=== PATIENT | male | born 1940 | race Caucasian/White ===

== ENCOUNTER → 2019-08-26 10:37 | Outpatient (BNVA) | payer MEDICARE, SELFPAY | PROVIDERS: Family Provider Internal Medicine; PCP Internal Medicine | DX: I48.91 Unspecified atrial fibrillation (principal) | CPT/HCPCS: 85610 ==

== ENCOUNTER → 2019-09-02 10:37 | Outpatient (BNVA) | payer MEDICARE, SELFPAY | PROVIDERS: Family Provider Internal Medicine; PCP Internal Medicine; Visit Provider Internal Medicine Cardiovascular Disease | DX: I48.91 Unspecified atrial fibrillation (principal) | CPT/HCPCS: 85610 ==

== ENCOUNTER → 2019-09-16 09:03 | Outpatient (BNVA) | payer MEDICARE, SELFPAY | PROVIDERS: Family Provider Internal Medicine; PCP Internal Medicine; Visit Provider Internal Medicine Cardiovascular Disease | DX: I48.91 Unspecified atrial fibrillation (principal) | CPT/HCPCS: 85610 ==

== ENCOUNTER → 2019-10-14 10:53 | Outpatient (BNVA) | payer MEDICARE, SELFPAY | PROVIDERS: Family Provider Internal Medicine; PCP Internal Medicine; Visit Provider Internal Medicine Cardiovascular Disease | DX: I48.91 Unspecified atrial fibrillation (principal); Z79.01 Long term (current) use of anticoagulants | CPT/HCPCS: 85610 ==

== ENCOUNTER 2021-06-02 09:51 | Outpatient (CLI) | payer MEDICARE, SELFPAY ==
--- NOTE | 2021-06-02 09:30 | USCV_ITS ---
Oswaldo Green Age: 80 Gender: M : 1940 Exam Date: 06/02/2021 10:06 Ordering Phys: Jac Arrieta MD ([email or web address]) Technologist: PRACHI [place] [facility] [place]: DYSPNEA BP: 130 / 60 HR: 57 Rhythm: Sinus Technical Quality: Technically difficult study MEASUREMENTS (Male / Female) Normal Values 2D ECHO LV Diastolic Diameter PLAX 6.0 cm 4.2 - 5.9 / 3.9 - 5.3 cm LV Systolic Diameter PLAX 5.3 cm IVS Diastolic Thickness 1.8 cm 0.6 - 1.0 / 0.6 - 0.9 cm IVS Systolic Thickness 2.1 cm LVPW Diastolic Thickness 1.2 cm 0.6 - 1.0 / 0.6 - 0.9 cm LVPW Systolic Thickness 1.4 cm LVOT Diameter 2.0 cm LV Ejection Fraction 2D Teich 25.1 % LV Ejection Fraction MOD 2C 18.6 % LV Ejection Fraction 2C AL 19.1 % LA Diameter 3.5 cm Aorta at Sinotubular Diameter 2.6 cm DOPPLER AV Peak Velocity 108.0 cm/s LVOT Peak Velocity 93.0 cm/s AV Area Cont Eq vti 2.5 cm squared AV Area Cont Eq pk 2.7 cm squared MV Area PHT 5.0 cm squared Mitral E to A Ratio 0.5 MV E' Velocity 20.0 cm/s Mitral E to MV E' Ratio 5.0 Mitral E to LV E' Lateral Ratio 4.2 Mitral E to LV E' Septal Ratio 6.1 TR Peak Velocity 228.0 cm/s TR Peak Gradient 20.8 mmHg TV Peak E Velocity 48.0 cm/s Right Atrial Pressure 3.0 mmHg Pulmonary Artery Systolic Pressu 23.8 mmHg PV Peak Velocity 69.0 cm/s RV Acceleration Time 0.1 s RV Ejection Time 0.3 s RV AcT/ET 0.3 FINDINGS Left Ventricle Severe diffuse hypokinesis of the left ventricle. Ejection fraction is around 20% (visual). Mildly dilated left ventricle. Right Ventricle Possibly normal RV size with slightly diminished ejection fraction. Right Atrium Could not be visualized well Left Atrium Mildly increased left atrial size. Mitral Valve Thickened mitral valve. Aortic Valve Thickened aortic valve. Mild aortic valve regurgitation. Tricuspid Valve Tricuspid valve not well visualized. Pulmonic Valve Pulmonic valve not well visualized. Pericardium No pericardial effusion. Aorta Normal aortic annulus size. CONCLUSIONS 1. Severe diffuse hypokinesia of the left ventricle with ejection fraction of around 20% 2. Mildly dilated left ventricle and left atrium. 3. Possibly normal RV size with a slightly diminished ejection fraction. 4. Right atrium could not visualized well. 5. No significant pericardial effusion. 6. Minimally thickened aortic and mitral valves with mild aortic regurgitation. Technically difficult study because of the poor ultrasonic window. Compared to his study from 04/18/2018, there is significant drop in the LV ejection fraction-from 30% to 20%. Dr Jac Arrieta MD [facility] (Electronically Signed) Final Date: 03 June 2021 00:00 S
== END 2021-06-02 09:52 | disposition home or self-care (01) ==
LOC: RAD 09:54
PROVIDERS: PCP Internal Medicine; Visit Provider Internal Medicine Cardiovascular Disease
DX: I35.1 Nonrheumatic aortic (valve) insufficiency (principal); I51.7 Cardiomegaly; R06.00 Dyspnea, unspecified
CPT/HCPCS: 93306

== ENCOUNTER → 2021-10-20 14:50 | Outpatient (BNVA) | payer MEDICARE, SELFPAY | PROVIDERS: PCP Internal Medicine; Visit Provider Internal Medicine Cardiovascular Disease | DX: Z79.01 Long term (current) use of anticoagulants (principal) ==

== ENCOUNTER → 2021-10-28 11:20 | Outpatient (BNVA) | payer MEDICARE, SELFPAY | PROVIDERS: PCP Internal Medicine; Visit Provider Internal Medicine Cardiovascular Disease | DX: Z79.01 Long term (current) use of anticoagulants (principal) ==

== ENCOUNTER → 2021-11-01 13:38 | Outpatient (BNVA) | payer MEDICARE, SELFPAY | PROVIDERS: PCP Internal Medicine; Visit Provider Internal Medicine Cardiovascular Disease | DX: R60.0 Localized edema (principal); I25.5 Ischemic cardiomyopathy; I25.10 Atherosclerotic heart disease of native coronary artery without angina pectoris; E78.2 Mixed hyperlipidemia | CPT/HCPCS: 99214 ==

== ENCOUNTER → 2021-11-16 13:08 | Outpatient (BNVA) | payer MEDICARE, SELFPAY | PROVIDERS: PCP Internal Medicine; Visit Provider Nurse Practitioner Family | DX: I25.5 Ischemic cardiomyopathy (principal); I10 Essential (primary) hypertension | CPT/HCPCS: 80048; 99214 ==

== ENCOUNTER → 2021-11-18 13:19 | Outpatient (BNVA) | payer MEDICARE, SELFPAY | PROVIDERS: PCP Internal Medicine; Visit Provider Internal Medicine Cardiovascular Disease | DX: I48.11 Longstanding persistent atrial fibrillation (principal); Z79.01 Long term (current) use of anticoagulants ==

== ENCOUNTER → 2021-11-25 08:49 | Outpatient (BNVA) | payer MEDICARE, SELFPAY | PROVIDERS: PCP Internal Medicine; Visit Provider Internal Medicine Cardiovascular Disease | DX: Z79.01 Long term (current) use of anticoagulants (principal) ==

== ENCOUNTER 2021-12-07 10:57 | Outpatient (CLI) | payer MEDICARE, SELFPAY ==
[2021-12-07 12:50] LABS: Anion Gap 14.4 (5-19); Blood Urea Nitrogen 22 mg/dL (8-23); Carbon Dioxide 29 mmol/L (22-29); Chloride 104 mmol/L (98-107); Glucose 94 mg/dL (65-115); Osmolality Calculated 299 mOsm/kg (285-295); Potassium 4.4 mmol/L (3.5-5.1); Sodium 143 mmol/L (136-145)
== END 2021-12-07 10:58 | disposition home or self-care (01) ==
LOC: LAB 11:11
PROVIDERS: PCP Internal Medicine; Visit Provider Nurse Practitioner Family
DX: I25.5 Ischemic cardiomyopathy (principal)
CPT/HCPCS: 36415; 80048

== ENCOUNTER → 2021-12-08 10:48 | Outpatient (BNVA) | payer MEDICARE, SELFPAY | PROVIDERS: PCP Internal Medicine; Visit Provider Internal Medicine Cardiovascular Disease | DX: Z79.01 Long term (current) use of anticoagulants (principal) ==

== ENCOUNTER → 2021-12-16 09:13 | Outpatient (BNVA) | payer MEDICARE, SELFPAY | PROVIDERS: PCP Internal Medicine; Visit Provider Internal Medicine Cardiovascular Disease | DX: Z79.01 Long term (current) use of anticoagulants (principal) ==

== ENCOUNTER → 2021-12-23 10:55 | Outpatient (BNVA) | payer MEDICARE, SELFPAY | PROVIDERS: PCP Internal Medicine; Visit Provider Internal Medicine Cardiovascular Disease | DX: Z79.01 Long term (current) use of anticoagulants (principal) ==

== ENCOUNTER → 2021-12-30 14:04 | Outpatient (BNVA) | payer MEDICARE, SELFPAY | PROVIDERS: PCP Internal Medicine; Visit Provider Internal Medicine Cardiovascular Disease | DX: Z79.01 Long term (current) use of anticoagulants (principal) ==

== ENCOUNTER → 2022-01-06 11:41 | Outpatient (BNVA) | payer MEDICARE, SELFPAY | PROVIDERS: PCP Internal Medicine; Visit Provider Internal Medicine Cardiovascular Disease | DX: Z79.01 Long term (current) use of anticoagulants (principal) ==

== ENCOUNTER → 2022-01-20 09:47 | Outpatient (BNVA) | payer MEDICARE, SELFPAY | PROVIDERS: PCP Internal Medicine; Visit Provider Internal Medicine Cardiovascular Disease | DX: Z79.01 Long term (current) use of anticoagulants (principal) ==

== ENCOUNTER → 2022-01-27 09:03 | Outpatient (BNVA) | payer MEDICARE, SELFPAY | PROVIDERS: PCP Internal Medicine; Visit Provider Internal Medicine Cardiovascular Disease | DX: Z79.01 Long term (current) use of anticoagulants (principal) ==

== ENCOUNTER → 2022-02-03 09:11 | Outpatient (BNVA) | payer MEDICARE, SELFPAY | PROVIDERS: PCP Internal Medicine; Visit Provider Internal Medicine Cardiovascular Disease | DX: Z79.01 Long term (current) use of anticoagulants (principal) ==

== ENCOUNTER → 2022-02-09 16:59 | Outpatient (BNVA) | payer MEDICARE, SELFPAY | PROVIDERS: PCP Internal Medicine; Visit Provider Internal Medicine Cardiovascular Disease | DX: Z79.01 Long term (current) use of anticoagulants (principal) ==

== ENCOUNTER → 2022-02-17 10:51 | Outpatient (BNVA) | payer MEDICARE, SELFPAY | PROVIDERS: PCP Internal Medicine; Visit Provider Internal Medicine Cardiovascular Disease | DX: Z79.01 Long term (current) use of anticoagulants (principal) ==

== ENCOUNTER → 2022-02-24 13:48 | Outpatient (BNVA) | payer MEDICARE, SELFPAY | PROVIDERS: PCP Internal Medicine; Visit Provider Internal Medicine Cardiovascular Disease | DX: Z79.01 Long term (current) use of anticoagulants (principal) ==

== ENCOUNTER → 2022-03-03 13:12 | Outpatient (BNVA) | payer MEDICARE, SELFPAY | PROVIDERS: PCP Internal Medicine; Visit Provider Internal Medicine Cardiovascular Disease | DX: Z79.01 Long term (current) use of anticoagulants (principal) ==

== ENCOUNTER → 2022-03-14 10:35 | Outpatient (BNVA) | payer MEDICARE, SELFPAY | PROVIDERS: PCP Internal Medicine; Visit Provider Internal Medicine Cardiovascular Disease | DX: Z79.01 Long term (current) use of anticoagulants (principal) ==

== ENCOUNTER → 2022-06-14 13:41 | Outpatient (BNVA) | payer MEDICARE, SELFPAY | PROVIDERS: PCP Internal Medicine; Visit Provider Internal Medicine Cardiovascular Disease | DX: I25.5 Ischemic cardiomyopathy (principal); I25.10 Atherosclerotic heart disease of native coronary artery without angina pectoris; I10 Essential (primary) hypertension; Z95.1 Presence of aortocoronary bypass graft; E78.2 Mixed hyperlipidemia; I48.11 Longstanding persistent atrial fibrillation; Z79.01 Long term (current) use of anticoagulants | CPT/HCPCS: 99213; 99214 ==

== ENCOUNTER → 2022-08-08 14:33 | Outpatient (BNVA) | payer MEDICARE, SELFPAY | PROVIDERS: PCP Internal Medicine; Referring Provider Internal Medicine; Visit Provider Student in an Organized Health Care Education/Training Program | DX: M16.12 Unilateral primary osteoarthritis, left hip (principal) | CPT/HCPCS: 73523; 99204 ==

== ENCOUNTER → 2022-11-13 08:59 | Outpatient (BNVA) | payer MEDICARE, SELFPAY | PROVIDERS: PCP Internal Medicine; Visit Provider Internal Medicine Cardiovascular Disease | DX: I48.11 Longstanding persistent atrial fibrillation (principal) | CPT/HCPCS: 85610 ==

== ENCOUNTER → 2022-12-15 09:02 | Outpatient (BNVA) | payer MEDICARE, SELFPAY | PROVIDERS: PCP Internal Medicine; Visit Provider Internal Medicine Cardiovascular Disease | DX: I48.11 Longstanding persistent atrial fibrillation (principal) | CPT/HCPCS: 85610 ==

== ENCOUNTER → 2022-12-18 08:59 | Outpatient (BNVA) | payer MEDICARE, SELFPAY | PROVIDERS: PCP Internal Medicine; Visit Provider Internal Medicine Cardiovascular Disease | DX: I48.11 Longstanding persistent atrial fibrillation (principal) | CPT/HCPCS: 85610 ==

== ENCOUNTER → 2022-12-27 11:20 | Outpatient (BNVA) | payer MEDICARE, SELFPAY | PROVIDERS: PCP Internal Medicine; Visit Provider Internal Medicine Cardiovascular Disease | DX: I48.11 Longstanding persistent atrial fibrillation (principal); I10 Essential (primary) hypertension; E78.2 Mixed hyperlipidemia; I25.10 Atherosclerotic heart disease of native coronary artery without angina pectoris; I25.5 Ischemic cardiomyopathy; Z95.1 Presence of aortocoronary bypass graft; Z79.01 Long term (current) use of anticoagulants | CPT/HCPCS: 99214 ==

== ENCOUNTER → 2023-01-16 10:41 | Outpatient (BNVA) | payer MEDICARE, SELFPAY | PROVIDERS: PCP Internal Medicine; Visit Provider Internal Medicine Cardiovascular Disease | DX: I48.11 Longstanding persistent atrial fibrillation (principal) | CPT/HCPCS: 85610 ==

== ENCOUNTER → 2023-02-13 09:27 | Outpatient (BNVA) | payer MEDICARE, SELFPAY | PROVIDERS: PCP Internal Medicine; Visit Provider Internal Medicine Cardiovascular Disease | DX: I48.11 Longstanding persistent atrial fibrillation (principal) | CPT/HCPCS: 85610 ==

== ENCOUNTER → 2023-02-27 09:19 | Outpatient (BNVA) | payer MEDICARE, SELFPAY | PROVIDERS: PCP Internal Medicine; Visit Provider Internal Medicine Cardiovascular Disease | DX: I48.91 Unspecified atrial fibrillation (principal) | CPT/HCPCS: 85610 ==

== ENCOUNTER → 2023-03-07 14:39 | Outpatient (BNVA) | payer MEDICARE, SELFPAY | PROVIDERS: PCP Internal Medicine; Visit Provider Dermatology | DX: L82.1 Other seborrheic keratosis (principal) | CPT/HCPCS: 17000; 17003; 99213 ==

== ENCOUNTER → 2023-03-26 13:21 | Outpatient (BNVA) | payer MEDICARE, SELFPAY | PROVIDERS: PCP Internal Medicine; Visit Provider Internal Medicine Cardiovascular Disease | DX: I48.91 Unspecified atrial fibrillation (principal) | CPT/HCPCS: 85610 ==

== ENCOUNTER → 2023-04-02 09:23 | Outpatient (BNVA) | payer MEDICARE, SELFPAY | PROVIDERS: PCP Internal Medicine; Visit Provider Internal Medicine Cardiovascular Disease | DX: I48.91 Unspecified atrial fibrillation (principal) | CPT/HCPCS: 85610 ==

== ENCOUNTER → 2023-04-30 09:12 | Outpatient (BNVA) | payer MEDICARE, SELFPAY | PROVIDERS: PCP Internal Medicine; Visit Provider Internal Medicine Cardiovascular Disease | DX: I48.11 Longstanding persistent atrial fibrillation (principal) | CPT/HCPCS: 85610 ==

== ENCOUNTER → 2023-05-30 10:14 | Outpatient (BNVA) | payer MEDICARE, SELFPAY | PROVIDERS: PCP Internal Medicine; Visit Provider Internal Medicine Cardiovascular Disease | DX: I48.11 Longstanding persistent atrial fibrillation (principal) | CPT/HCPCS: 85610 ==

== ENCOUNTER → 2023-06-27 10:09 | Outpatient (BNVA) | payer MEDICARE, SELFPAY | PROVIDERS: PCP Internal Medicine; Visit Provider Internal Medicine Cardiovascular Disease | DX: I48.11 Longstanding persistent atrial fibrillation (principal) | CPT/HCPCS: 85610 ==

== ENCOUNTER → 2023-07-05 13:26 | Outpatient (BNVA) | payer MEDICARE, SELFPAY | PROVIDERS: PCP Internal Medicine; Visit Provider Internal Medicine Cardiovascular Disease | DX: I25.5 Ischemic cardiomyopathy (principal); I48.11 Longstanding persistent atrial fibrillation; Z79.01 Long term (current) use of anticoagulants; I25.10 Atherosclerotic heart disease of native coronary artery without angina pectoris; Z95.1 Presence of aortocoronary bypass graft; E78.2 Mixed hyperlipidemia; I10 Essential (primary) hypertension | CPT/HCPCS: 99214 ==

== ENCOUNTER → 2023-07-23 13:29 | Outpatient (BNVA) | payer MEDICARE, SELFPAY | PROVIDERS: PCP Internal Medicine; Visit Provider Dermatology | DX: L82.1 Other seborrheic keratosis (principal); L81.4 Other melanin hyperpigmentation; Z08 Encounter for follow-up examination after completed treatment for malignant neoplasm; Z85.828 Personal history of other malignant neoplasm of skin; L82.0 Inflamed seborrheic keratosis; L57.0 Actinic keratosis | CPT/HCPCS: 17004; 17110; 99213 ==

== ENCOUNTER → 2023-08-01 10:24 | Outpatient (BNVA) | payer MEDICARE, SELFPAY | PROVIDERS: PCP Internal Medicine; Visit Provider Internal Medicine Cardiovascular Disease | DX: I48.11 Longstanding persistent atrial fibrillation (principal) | CPT/HCPCS: 85610 ==

== ENCOUNTER → 2023-08-16 13:53 | Outpatient (BNVA) | payer MEDICARE, SELFPAY | PROVIDERS: PCP Internal Medicine; Referring Provider Internal Medicine; Visit Provider Physician Assistant | DX: M16.12 Unilateral primary osteoarthritis, left hip (principal) | CPT/HCPCS: 73523; 99213 ==

== ENCOUNTER → 2023-08-29 10:02 | Outpatient (BNVA) | payer MEDICARE, MEDICAID, SELFPAY | PROVIDERS: PCP Internal Medicine; Visit Provider Internal Medicine Cardiovascular Disease | DX: I48.11 Longstanding persistent atrial fibrillation (principal) | CPT/HCPCS: 85610 ==

== ENCOUNTER → 2023-09-26 09:58 | Outpatient (BNVA) | payer MEDICARE, MEDICAID, SELFPAY | PROVIDERS: PCP Internal Medicine; Visit Provider Internal Medicine Cardiovascular Disease | DX: I48.11 Longstanding persistent atrial fibrillation (principal) | CPT/HCPCS: 85610 ==

== ENCOUNTER → 2023-10-15 10:29 | Outpatient (BNVA) | payer MEDICARE, MEDICAID, SELFPAY | PROVIDERS: PCP Internal Medicine; Visit Provider Internal Medicine Cardiovascular Disease | DX: I48.11 Longstanding persistent atrial fibrillation (principal) | CPT/HCPCS: 85610 ==

== ENCOUNTER 2023-10-24 10:35 | Inpatient (IN) | payer MEDICARE, MEDICAID, SELFPAY ==
[2023-10-24] VITALS (9 sets, daily range): BP systolic 97–125; BP diastolic 59–87; PULSE 83–97; RESP 20–25; TEMP 36.7; O2SAT 92–96; BMI 25.8; BMI 26.2
--- NOTE | 2023-10-24 10:45 | ECG_ITS ---
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 Measurements Intervals [place] Rate: 92 P: 0 [place]: 0 QRS: -85 QRSD: 177 T: 107 QT: 402 QTc: 498 Interpretive Statements ATRIAL FIBRILLATION LEFT AXIS DEVIATION [QRS AXIS < -30] INTRAVENTRICULAR CONDUCTION DELAY [130+ ms QRS DURATION] No previous ECG available for comparison Electronically Signed On 10-24-2023 10:57:53 CADMIUM PLATER by Ariel Carter M.D. [id number]
--- NOTE | 2023-10-24 10:53 | XRR_ITS ---
PROCEDURE INFORMATION: Exam: XR Chest Exam date and time: 10/24/2023 11:18 AM Age: 83 years old Clinical indication: Cough and dyspnea and shortness of breath; Patient HX: HX of melanoma; Additional info: Dyspnea/cough TECHNIQUE: Imaging protocol: Radiologic exam of the chest. Views: 1 view. COMPARISON: No relevant prior studies available. FINDINGS: Lungs: No focal peripheral lung consolidation, air bronchogram formation, or silhouette sign. Pleural spaces: Small left pleural effusion. Trace right pleural effusion. No pneumothorax. Heart/Mediastinum: The cardiac silhouette is enlarged. There is a curvilinear calcification projecting over the left heart which can be due to a prior myocardial infarction with subsequent dystrophic calcification. Prior CABG. The mediastinal contours are normal. Bones/joints: Prior sternotomy. XR/XR chest 1V portable [id number] IMPRESSION: 1. Cardiomegaly. Possible prior myocardial infarction. 2. Asymmetric pleural effusions.
[2023-10-24 11:06] LABS: Basophils % 0.3 %; Eosinophils % 0.2 %; Hematocrit 43.6 % (37-53); Lymphocytes # 1.7 10^3/uL (0.8-4.8); Lymphocytes % 17.1 %; Mean Corpuscular HGB Conc 31.9 g/dL (30-55); Mean Corpuscular Volume 87.9 fl (82-101); Monocytes # 0.8 10^3/uL (0.2-0.9); Monocytes % 8.3 %; Neutrophils # 7.22 10^3/uL (1.8-7.7); Neutrophils % 73.7 %; Nucleated Red Blood Cells % 0 %; Platelet Count 147 10^3/cmm (157-399); Red Blood Count 4.96 10^6/uL (3.85-5.65); Red Cell Distribution Width 17.3 % (12.1-15.1); White Blood Count 9.79 10^3/uL (3.29-11.43)
--- NOTE | 2023-10-24 11:18 | PC.PHAR ---
pt states he takes care of his own medications-pt states he takes lipitor 80mg takes 1/2 tabs (40mg) po daily ext shows 80mg daily last filled 07/24/23 90d/s-pt states he no longer takes jardiance 10mg daily ext shows last filled 08/09/23 90d/s pt states not taken for 6 weeks states it causes stomach upset-pt states he is unsure which medications is taken in the am and pm-
[2023-10-24 11:19] LABS: Alanine Aminotransferase 49 U/L (0-41); Alkaline Phosphatase 102 U/L (40-130); Blood Urea Nitrogen 36 mg/dL (8-23); Calcium 8.4 mg/dL (8.5-10.5); Carbon Dioxide 26 mmol/L (22-29); Chloride 104 mmol/L (98-107); Creatinine Clr Calc Pharmacy 56.9579; Globulin 2.6 g/dL (1.3-4.6); Glucose 124 mg/dL (65-115); Osmolality Calculated 302 mOsm/kg (285-295); Sodium 141 mmol/L (136-145); Total Bilirubin 1.5 mg/dL (0.15-1.2); Total Protein 6.6 g/dL (6.6-8.7)
[2023-10-24 11:20] LABS: Troponin(5th) Baseline 25 ng/L (0-15)
[2023-10-24 11:22] LABS: Anion Gap 15.5 (5-19); Aspartate Amino Transferase 32 U/L (0-40); Potassium 4.5 mmol/L (3.5-5.1)
--- NOTE | 2023-10-24 12:53 | ECG_ITS ---
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 Measurements Intervals [place] Rate: 92 P: 0 GA: 0 QRS: -63 QRSD: 186 T: 119 QT: 419 QTc: 520 Interpretive Statements ATRIAL FIBRILLATION LEFT AXIS DEVIATION [QRS AXIS < -30] INTRAVENTRICULAR CONDUCTION DELAY [130+ ms QRS DURATION] Compared to ECG 10/24/2023 10:45:57 No significant changes Electronically Signed On 10-24-2023 14:33:45 COMPOUND MACHINE OPERATOR by Ariel Carter M.D. [id number]
--- NOTE | 2023-10-24 13:39 | W.ED.SOB ---
HPI - SOB/Dyspnea General: Chief Complaint: Shortness of Breath/Dyspnea Stated Complaint: sob, congestion Time Seen by Provider: 10/24/23 10:53 Source: patient Mode of arrival: ambulatory History of Present Illness: HPI Narrative: 83-year-old male presents emergency room complaining of increasing shortness of breath. With activity he has noticed the last several days he is more short of breath than usual. He states he can walk about 100 250 feet and then he will have to stop and rest takes him 2 minutes to recover. He does not get chest pain during this time. Patient has a known history of coronary disease. He has not had any fever sweats chills or productive cough. MD elicited complaint: shortness of breath and cough Severity: mild Exacerbating factors: exertion Relieving factors: rest Known history of: congestive heart failure Associated symptoms: Reports chest congestion and chest pain; Deny abdominal pain, cough, diaphoresis, dizziness, extremity pain, fever(s), hemoptysis, lightheadedness, myalgias, nausea, orthopnea, palpitations, paresthesias, polydipsia, polyuria, rash, sense of impending doom, syncope or vomiting Related Data: Home oxygen amount: none Review of Systems Const: Denies: fever(s), chills or diaphoresis Card: Reports: chest pain; Denies: palpitations, lightheadedness, syncope or orthopnea Resp: Reports: chest congestion; Denies: dyspnea or hemoptysis GI: Denies: abdominal pain, nausea or vomiting : Denies: dysuria, urinary frequency or urinary urgency Musc: Denies: neck pain, back pain or extremity pain Skin/Breast: Denies: rash Neuro: Denies: dizziness Endo: Denies: polyuria or polydipsia PFS ED PFSH: Medical History (Updated 10/24/23 @ 16:01 by Percy Lamar MD) Degenerative joint disease of left hip Warfarin anticoagulation Left ventricular ejection fraction less than 20% History of nonmelanoma skin cancer Cardiomyopathy Patient refused ICD implantation ASHD (arteriosclerotic heart disease) Hyperlipidemia Hypertension Otalgia Atrial fibrillation Surgical History History of PTCA Hx of CABG Family History Father CAD (coronary artery disease) Lung disease Brother CAD (coronary artery disease) Cancer Denies family history of Diabetes Clotting disorder Dementia Chronic kidney disease (CKD) Suicide Anesthesia complication Bleeding disorder Stroke Social History Smoking and tobacco/nicotine status: never used tobacco/nicotine Alcohol intake: never Substance/Drug Use: never Physical Exam Const: COMMON NORMALS: no acute distress GENERAL APPEARANCE: cooperative and comfortable ORIENTATION/CONSCIOUSNESS: Yes awake, Yes oriented to person, Yes oriented to place and Yes oriented to time HENMT: COMMON NORMALS: normocephalic, atraumatic and hearing grossly normal bilaterally HEAD & SCALP: normocephalic and atraumatic Resp: COMMON NORMALS: normal respiratory effort, No retractions, No use of accessory muscles and clear to auscultation bilaterally AUSCULTATION: clear to auscultation bilaterally Cardio: COMMON NORMALS: regular rate, regular rhythm and No murmurs present (Cardio) RATE: regular rate RHYTHM: regular rhythm GI: COMMON NORMALS: Soft to palpation and No hepatosplenomegaly present AUSCULTATION: Yes normoactive bowel sounds PALPATION: Yes Soft to palpation, No Tenderness to palpation present (GI), No Guarding due to palpation present (GI) and Yes No hepatosplenomegaly present Extremity: COMMON NORMALS: normal to inspection, capillary refill normal, no clubbing, cyanosis or edema, no calf tenderness and no pedal edema Neuro: SENSORIUM/ORIENTATION: Yes oriented to person, Yes oriented to place and Yes oriented to time Skin: COMMON NORMALS: no rashes or lesions noted GENERAL SKIN EXAM: no rashes or lesions noted Course Vital Signs: Vital signs: Vital Signs Temperature 98.0 F 10/24/23 10:40 Pulse Rate 91 10/24/23 14:37 Respiratory Rate 20 H 10/24/23 10:40 Blood Pressure 118/77 10/24/23 14:37 Pulse Oximetry 94 10/24/23 14:37 Oxygen Delivery Me thod Room Air 10/24/23 14:37 MDM - SOB/Dyspnea Medical Decision Making Difficult patient with multiple issues. He is not really having chest pain he is getting dyspneic more so than he states he usually does. His last echocardiogram several years ago showed an EF of 20%. He is on [place] spironolactone and a small dose of Lasix daily. Had considered giving him Lasix here to try to decrease his fluid load his chest x-ray does look like he has mild worsening failure however his blood pressure does not look like it will allow it. His orthostatics actually showed improvement in his blood pressure when he stood. Discussed the patient with Dr. Arrieta we are reviewing different potential outpatient treatments ultimately Dr. Arrieta recommended that we admit the patient for adjustment in medications because he is so fragile with his medicines his blood pressure and managing his heart failure. Will consult Dr. Lund. Differential Diagnosis Likely congestive heart failure Medical Records I reviewed the patient's medical records. Lab Data I reviewed the patient's lab results. 10/24/23 10:55 10/24/23 10:55 Labs/Radiology: Radiology Impressions Chest X-Ray 10/24/23 10:53 IMPRESSION: 1. Cardiomegaly. Possible prior myocardial infarction. 2. Asymmetric pleural effusions. Laboratory Results WBC 9.79 10^3/uL (3.29-11.43) 10/24/23 10:55 RBC 4.96 10^6/uL (3.85-5.65) 10/24/23 10:55 Hgb 13.90 g/dL (11.27-16.99) 10/24/23 10:55 Hct 43.6 % (37-53) 10/24/23 10:55 MCV 87.9 fl (82-101) 10/24/23 10:55 MCH 28.0 pg (27-33) 10/24/23 10:55 MCHC 31.9 g/dL (30-55) 10/24/23 10:55 RDW 17.3 % (12.1-15.1) H 10/24/23 10:55 Plt Count 147 10^3/cmm (157-399) L 10/24/23 10:55 MPV 12.0 fL (7.4-10.4) H 10/24/23 10:55 Neut % (Auto) 73.7 % 10/24/23 10:55 Lymph % (Auto) 17.1 % 10/24/23 10:55 [place] % (Auto) 8.3 % 10/24/23 10:55 Eos % (Auto) 0.2 % 10/24/23 10:55 Baso % (Auto) 0.3 % 10/24/23 10:55 Neut # (Auto) 7.22 10^3/uL (1.8-7.7) 10/24/23 10:55 Lymph # (Auto) 1.7 10^3/uL (0.8-4.8) 10/24/23 10:55 [place] # (Auto) 0.8 10^3/uL (0.2-0.9) 10/24/23 10:55 Eos # (Auto) 0.0 10^3/uL (0.0-0.8) 10/24/23 10:55 Baso # (Auto) 0.0 10^3/uL (0.0-0.1) 10/24/23 10:55 Nucleated RBC % (auto) 0 % 10/24/23 10:55 Nucleated RBCs # 0.0 /100WBC 10/24/23 10:55 Sodium 141 mmol/L (136-145) 10/24/23 10:55 Potassium 4.5 mmol/L (3.5-5.1) 10/24/23 10:55 Chloride 104 mmol/L (98-107) 10/24/23 10:55 Carbon Dioxide 26 mmol/L (22-29) 10/24/23 10:55 Anion Gap 15.5 (5-19) 10/24/23 10:55 BUN 36 mg/dL (8-23) H 10/24/23 10:55 Creatinine 1.1 mg/dL (0.7-1.2) 10/24/23 10:55 GFR Calculation Not Reportable 10/24/23 10:55 Glucose 124 mg/dL (65-115) H 10/24/23 10:55 Calculated Osmolality 302 mOsm/kg (285-295) H 10/24/23 10:55 Calcium 8.4 mg/dL (8.5-10.5) L 10/24/23 10:55 Total Bilirubin 1.5 mg/dL (0.15-1.2) H 10/24/23 10:55 AST 32 U/L (0-40) 10/24/23 10:55 ALT 49 U/L (0-41) H 10/24/23 10:55 Alkaline Phosphatase 102 U/L (40-130) 10/24/23 10:55 Troponin T Baseline 25 ng/L (0-15) H 10/24/23 10:55 Troponin T 120 Minute 27.51 ng/L (0-15) H 10/24/23 12:52 Delta Troponin T 2.51 ABS# (0-10) 10/24/23 12:52 Total Protein 6.6 g/dL (6.6-8.7) 10/24/23 10:55 Albumin 4.0 g/dL (3.5-5.2) 10/24/23 10:55 Globulin 2.6 g/dL (1.3-4.6) 10/24/23 10:55 All radiology interpretation(s) finalized by discharge Discharge Plan Discharge Patient Disposition: Home Clinical Impression: Cardiomyopathy, ASHD (arteriosclerotic heart disease) Condition: Stable Discharge Orders: Discharge ED (Routine); Ordered 10/24/23 Ordered By: Romero López Discharge Diet: Usual diet Discharge Activity: Increase activity as tolerated Coding Level of Care Code 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
[2023-10-24 13:44] LABS: Troponin 5 2HR 27.51 ng/L (0-15); Troponin 5 2HR Delta 2.51 ABS# (0-10)
--- NOTE | 2023-10-24 13:54 | PC.NURSE ---
NOTIFIED DR. LYONS OF [facility]TS [facility] () TO VERIFY IF HE STILL WANTED LASIX GIVEN, PER DR. LYONS INSTRUCTED TO HOLD MED.
--- NOTE | 2023-10-24 15:58 | P.HP_ITS ---
Providers/Chief Complaint 2 Admitting Physician: Percy Lamar MD Primary Care Provider: Sly Hagen DO Chief Complaint: sob, congestion History of Present Illness Oswaldo Green is a 83 year old male with past medical history of ischemic cardiomyopathy, EF of 20%, congestive heart failure, atrial fibrillation, not on ICD for primary prevention presents to the ER today because of difficulty in breathing which has been getting worse over last 1 week. Patient states he has been having difficulty in breathing on exertion for last 1 month more than usual but for last 1 week he is getting winded on minimal ambulation. He has required more number of pillows than usual over the last 1 week and he seems to have gained around 4 to 5 pounds in a week as well. Any chest pain, palpitations. But does complain of early satiety, nausea on eating and early fullness. Denies any changes in medications recently. Has not had a stress test or echocardiogram in a long time. Review of Systems 2 General: Reports: 10 or more systems reviewed and unremarkable except in HPI and below Const: Denies: fever(s), chills, body aches, change in appetite, change in weight, malaise, night sweats, diaphoresis, change in sleep pattern, daytime sleepiness or snoring Eyes: Denies: change in vision, blurry vision, photophobia, eye discomfort or eye discharge ENMT: Denies: throat pain, enlarged tonsils, hoarseness, mouth pain, oral sores, dry mouth, tinnitus, nasal congestion or post nasal drip Card: Denies: chest pain, palpitations, irregular heart rhythm, edema, swelling of feet/ankles, lightheadedness, syncope, pre-syncope, dyspnea on exertion, orthopnea, leg pain with exertion or acrocyanosis Resp: Denies: dyspnea, productive cough, non-productive cough, wheezing, stridor, pain on inspiration, change in phlegm color, hemoptysis or chest congestion GI: Denies: abdominal pain, nausea, vomiting, hematemesis, coffee ground emesis, dysphagia, heartburn, diarrhea, constipation, bloating, GI cramping, change in bowel habits, pain on defecation, hematochezia or melena : Denies: flank pain, difficulty urinating, dysuria, urinary frequency, urinary urgency, urinary hesitancy, urinary dribbling, difficulty starting urination, change in urine stream, nocturia or hematuria Musc: Denies: neck pain, back pain, extremity pain, joint pain, joint swelling, joint redness, joint stiffness or limited range of motion Neuro: Denies: headache(s), numbness in extremities, weakness in extremities, sensory changes, lack of coordination, difficulty walking, frequent falls, dizziness, vertigo, confusion, Slurred speech present, difficulty communicating thoughts or seizure-like activity Psych: Denies: anxiety, depression, mood swings, panic attacks, hopelessness or irritability Endo: Denies: polyuria, polydipsia, tired all the time, cold intolerance, excessive sweating, flushing or heat intolerance Chris/Lymph: Denies: easy bruising or easy bleeding All/Imm: Denies: tongue swelling, facial swelling or acute wheezing Medications/Allergies Home Medications Medication Instructions Recorded Confirmed Last Taken Type atorvastatin 80 mg tablet 40 mg PO DAILY 11/04/19 10/24/23 Unknown History warfarin 2.5 mg tablet 2.5 mg PO DIRECTED #90 tabs 02/23/23 10/24/23 Unknown Rx clopidogrel 75 mg tablet 75 mg PO DAILY #90 tabs 04/04/23 10/24/23 Unknown Rx sacubitril 97 mg-valsartan 103 mg 1 tab PO BID #180 tabs 06/01/23 10/24/23 10/24/23 07:30 Rx tablet furosemide 20 mg tablet 10 mg (1/2 x 20 mg) PO QAM #45 tabs 07/11/23 10/24/23 Unknown Rx ezetimibe 10 mg tablet 10 mg PO DAILY 10/24/23 10/24/23 Unknown History fluticasone propionate 50 2 spray intranasal DAILY 10/24/23 10/24/23 Unknown History mcg/actuation nasal spray,suspension spironolactone 25 mg tablet 25 mg PO DAILY 10/24/23 10/24/23 Unknown History Allergies Allergy/AdvReac Type Severity Reaction Status Date / Time empagliflozin Allergy ADR-Gastrointestinal Verified 10/24/23 11:10 [From Jardiance] Upset carvedilol AdvReac Intermediate fatigue Verified 08/16/23 14:09 and hypotension PFSH Acute 2 PFSH: Medical History (Updated 10/24/23 @ 16:01 by Percy Lamar MD) Degenerative joint disease of left hip Warfarin anticoagulation Left ventricular ejection fraction less than 20% History of nonmelanoma skin cancer Cardiomyopathy Patient refused ICD implantation ASHD (arteriosclerotic heart disease) Hyperlipidemia Hypertension Otalgia Atrial fibrillation Surgical History History of PTCA Hx of CABG Family History Father CAD (coronary artery disease) Lung disease Brother CAD (coronary artery disease) Cancer Denies family history of Diabetes Clotting disorder Dementia Chronic kidney disease (CKD) Suicide Anesthesia complication Bleeding disorder Stroke Social History Smoking and tobacco/nicotine status: never used tobacco/nicotine Alcohol intake: never Substance/Drug Use: never Vitals/I&O/Wt Last Vital Signs Temp 98.0 F 10/24/23 10:40 Pulse 91 10/24/23 14:37 Resp 20 H 10/24/23 10:40 BP 118/77 10/24/23 14:37 Pulse Ox 94 10/24/23 14:37 O2 Del Method Room Air 10/24/23 14:37 Weight last 48 hrs Weight 81.647 kg Physical Exam 2 Narrative: General: No acute distress, AO x3 HEENT: PERRLA, pupils bilaterally equal and reactive Chest: Normal vesicular breath sounds, no added sounds, equal good air entry bilaterally CVS: S1-S2 regular, no murmurs, no tachycardia, no gallops, no rubs Abdomen: Soft, nontender, no organomegaly, bowel sounds present Neuro: No focal deficits, no facial deformity, AO x3, power 5/5 in all limbs Data 10/24/23 10:55 10/24/23 10:55 A&P Assessment and plan (1) Hypotension: Goal blood pressure less than 140/90 mmHg. Blood pressure is borderline for now. Patient requires diuresis. Hold off on Entresto and spironolactone for now. (2) Systolic congestive heart failure: Symptoms most likely in setting of systolic congestive heart failure. Patient has not had a stress test in a long time. Check proBNP. Cycle troponins. Last echocardiogram from 2020 shows an EF of 20% with dilated LV and LA, possibly normal RV size with slightly diminished functions. Repeat echocardiogram. Depending on the results of the repeat echocardiogram will plan for repeat stress test or ACS workup. Strict input output charting, daily weights. Hawkins catheterization. IV Lasix 40 mg daily. Will uptitrate dose as per urine response. For now hold off on spironolactone and Entresto because of borderline blood pressures. Monitor electrolytes and renal functions. Keep potassium around 4, magnesium around 2. Cardiology recommends further adjustment of medications. Will formally consult. (3) Cardiomyopathy: Ischemic cardiomyopathy. Treatment as above. Patient has refused ICD in the past. No active chest pain. Check A1c, lipid panel. Continue with home dose of statin and Plavix. Qualifiers: Cardiomyopathy type: ischemic Qualified Code(s): I25.5 - Ischemic cardiomyopathy (4) Atrial fibrillation: Currently rate controlled. Telemetry. Continue with warfarin for anticoagulation. Check INR. Qualifiers: Atrial fibrillation type: longstanding persistent Qualified Code(s): I 48.11 - Longstanding persistent atrial fibrillation (5) Left ventricular ejection fraction less than 20%: (6) Hx of CABG: (7) Warfarin anticoagulation: Plan CODE STATUS: Full code. will be the DPOA. Cardiac diet, fluid restriction less than 1500 cc. Protonix for PUD prophylaxis Warfarin will still be sufficient for DVT prophylaxis Attestations 2 Medical Necessity Statement*: Admission for more than 2 midnights for management of congestive heart failure in a patient with history of cardiomyopathy, EF 20% with hypotension for now while congestive heart failure medications were adjusted Diagnoses Hypotension I95.9 Systolic congestive heart failure I50.20 Ischemic cardiomyopathy I25.5 Cardiomyopathy type: ischemic Longstanding persistent atrial fibrillation I48.11 Atrial fibrillation type: longstanding persistent Left ventricular ejection fraction less than 20% R94.30 Hx of CABG Z95.1 Warfarin anticoagulation Z79.01
--- NOTE | 2023-10-24 15:59 | USCV_ITS ---
Oswaldo Green Age: 83 Gender: M : 1940 Exam Date: 10/24/2023 17:08 Ordering Phys: Percy Lamar MD Technologist: KALI Exam Location: [facility] – [place] Indication: presenting with SOB, hx CABG 1994, cardiac stenting, last 2010. BP: 111 / 70 HR: 83 Rhythm: Atrial fibrillation Technical Quality: Adequate MEASUREMENTS (Male / Female) Normal Values 2D ECHO LV Diastolic Diameter PLAX 7.4 cm 4.2 - 5.9 / 3.9 - 5.3 cm IVS Diastolic Thickness 1.5 cm 0.6 - 1.0 / 0.6 - 0.9 cm IVS Systolic Thickness 1.4 cm LVPW Diastolic Thickness 1.3 cm 0.6 - 1.0 / 0.6 - 0.9 cm LVPW Systolic Thickness 1.2 cm LVOT Diameter 1.9 cm LV Ejection Fraction 2D Teich 10.4 % LV Ejection Fraction MOD 2C 19.5 % LV Ejection Fraction 2C AL 19.5 % LA Diameter 5.4 cm Aorta at Sinotubular Diameter 3.5 cm IVC Diameter 2.3 cm M-MODE LA Ao Ratio MM 1.6 AV Cusp Separation MM 1.9 cm DOPPLER AV Peak Velocity 102.0 cm/s LVOT Peak Velocity 70.0 cm/s AV Area Cont Eq vti 1.6 cm squared AV Area Cont Eq pk 1.9 cm squared MV Peak Velocity 79.0 cm/s MV Area PHT 5.0 cm squared Mitral E to A Ratio 599.0 TR Peak Velocity 254.0 cm/s TR Peak Gradient 25.8 mmHg TV Peak E Velocity 52.0 cm/s Right Atrial Pressure 10.0 mmHg Pulmonary Artery Systolic Pressu 35.8 mmHg PV Peak Velocity 80.0 cm/s FINDINGS Left Ventricle Left ventricle is dilated. LV systolic function is severely reduced with EF of 15 to 20%. Severe global hypokinesis seen. Right Ventricle Normal in size and fucntion Right Atrium Dilated. Left Atrium Severely dilated. Mitral Valve Mild mitral annular calcification seen. Mild to moderate eccentric mitral regurgitation. Aortic Valve Structurally normal aortic valve. Moderate aortic regurgitation. No significant stenosis. Tricuspid Valve Mild tricuspid regurgitation. RVSP is 35 to 40 mmHg. This is consistent with mild pulmonary hypertension. 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 LV systolic function is severely reduced with EF of 15 to 20%. Biatrial enlargement. Mild to moderate eccentric mitral regurgitation. Moderate aortic regurgitation Mild tricuspid regurgitation. 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 Compared to prior echocardiogram from 2020, patient now has mild to moderate mitral regurgitation and aortic regurgitation has progressed and is moderate now. Wilver Milligan MD (Electronically Signed) Final Date: 25 October 2023 07:25 S
--- NOTE | 2023-10-24 16:53 | ECG_ITS ---
[facility] Test Date: 2023-10-24 Pat Name: Oswaldo Green Department: Room: ED Gender: Male Quality Lead: : 1940 Requested By: Romero Mercado Order Number: [id number] French MD: Wilver Milligan M.D. Measurements Intervals Hoffman Rate: 94 P: 0 HI: 0 QRS: -69 QRSD: 190 T: 110 QT: 420 QTc: 526 Interpretive Statements ATRIAL FIBRILLATION WITH ABERRANT CONDUCTION OR VENTRICULAR PREMATURE COMPLEXES LEFT AXIS DEVIATION [QRS AXIS < -30] INTRAVENTRICULAR CONDUCTION DELAY [130+ ms QRS DURATION] Compared to ECG 10/24/2023 13:30:05 Ventricular premature complex(es) now present Aberrant conduction of supraventricular beat(s) now present Electronically Signed On 10-25-2023 14:52:16 [employer] DIRECTOR by Wilver Milligan M.D. [id number]
[2023-10-24] MEDS: FUROsemide 10 mg/mL SDV 4mL 40 MG IVP (17:23)
[2023-10-24 17:35] LABS: NT Pro B Type Natriuretic Pept 6512 pg/mL (0-450); Procalcitonin 0.07 ng/mL (0-0.5); Vitamin B12 304 pg/mL (232-1245)
[2023-10-24 17:42] LABS: Troponin 5 6HR 29.51 ng/L (0-15); Troponin 5 6HR Delta 4.51 ng/L (0-12)
[2023-10-24 17:53] LABS: Iron 47 ug/dL (59-158); Percent Saturation 21.4 % (20-50); Total Iron Binding Capacity 219 mcg/dl; Unsaturated Iron Binding 172 ug/dL (112-347)
[2023-10-24 18:47] LABS: Bilirubin Urine Neg (Negative); Blood Urine 3+ (Negative); Glucose Urine UA Norm (Normal); Ketones Urine Negative (Negative); Leukocyte Esterase Urine Negative (Negative); Nitrate Urine Negative (Negative); Protein Urine Neg (Negative); Specific Gravity, Urine 1.015 (1.005-1.030); Urine Appearance Clear (CLEAR); Urine Color Yellow (Yellow); Urobilinogen Urine Norm (Negative); pH Urine 5 (5-7)
[2023-10-24 18:48] LABS: Add Urine Culture? Yes; Add Urine Microscopic? YES; Bacteria Urine TRACE /hpf; Mucus Urine 1+ /hpf; RBC Urine 40-50 /hpf (0-2); Squamous Epithelial Cell Urine 0-4 /hpf (0-5); WBC Urine 0-4 /hpf (0-5)
[2023-10-25] VITALS (10 sets, daily range): BP systolic 93–109; BP diastolic 59–70; PULSE 83–98; RESP 14–27; TEMP 36.6–37.2; O2SAT 94–97; BMI 26.2
[2023-10-25 03:55] LABS: Basophils % 0.2 %; Eosinophils % 0.3 %; Hematocrit 38.6 % (37-53); Lymphocytes # 1.4 10^3/uL (0.8-4.8); Lymphocytes % 13.6 %; Mean Corpuscular HGB Conc 31.6 g/dL (30-55); Mean Corpuscular Hemoglobin 27.7 pg (27-33); Mean Corpuscular Volume 87.7 fl (82-101); Mean Platelet Volume 11.3 fL (7.4-10.4); Monocytes # 0.8 10^3/uL (0.2-0.9); Neutrophils # 7.72 10^3/uL (1.8-7.7); Neutrophils % 77.6 %; Nucleated Red Blood Cells % 0 %; Platelet Count 122 10^3/cmm (157-399); Red Cell Distribution Width 16.8 % (12.1-15.1); White Blood Count 9.95 10^3/uL (3.29-11.43)
[2023-10-25 04:12] LABS: Estmated Average Glucose 117; Hemoglobin A1C 5.7 % (4.0-6.0)
[2023-10-25 04:19] LABS: Alanine Aminotransferase 37 U/L (0-41); Albumin Level 3.4 g/dL (3.5-5.2); Alkaline Phosphatase 89 U/L (40-130); Anion Gap 14.8 (5-19); Aspartate Amino Transferase 22 U/L (0-40); Blood Urea Nitrogen 33 mg/dL (8-23); Calcium 8.1 mg/dL (8.5-10.5); Carbon Dioxide 28 mmol/L (22-29); Chloride 102 mmol/L (98-107); Creatinine Clr Calc Pharmacy 63.1274; Globulin 2.6 g/dL (1.3-4.6); Glucose 117 mg/dL (65-115); Magnesium 2.1 mg/dL (1.7-2.3); Osmolality Calculated 300 mOsm/kg (285-295); Phosphorus 3.4 mg/dL (2.5-4.5); Potassium 3.8 mmol/L (3.5-5.1); Sodium 141 mmol/L (136-145); Total Bilirubin 1.6 mg/dL (0.15-1.2)
[2023-10-25 04:25] LABS: Chol HDL Ratio 3.54 mg/dL (1.0-5.00); Cholesterol 99 mg/dL (0-200); HDL Cholesterol 28 mg/dL (60-100); LDL Cholesterol Calculated 57 mg/dL (50-129); LDL HDL Ratio 2.04 RATIO (0.00-3.22); Triglycerides 71 mg/dL (0-150)
[2023-10-25 04:44] LABS: Folate Level 11.8 ng/mL (4.5-32.2)
--- NOTE | 2023-10-25 07:02 | P.CONIM_ITS ---
Providers/Reason For Consult 2 Consulting Physician/Specialty*: Wilver Milligan MD/ Cardiology Reason for Consult*: Congestive heart failure Requesting Physician: Dr López Attending Physician: Percy Lamar MD Primary Care Provider: Sly Hagen DO History of Present Illness History of Present Illness Oswaldo Grene is a 83 year old male with past medical history of ischemic cardiomyopathy known EF of 20%, history of CABG, atrial fibrillation was presented to hospital with worsening shortness of breath. According to patient he has been having shortness of breath for the last 1 month but worsened in the last 1 week. He is also gaining weight. His blood pressure is borderline normal to low. Echocardiogram performed this admission shows EF of 15 to 20%. LV is significantly dilated. Troponins did not trend up significantly. EKG is consistent with atrial fibrillation with left bundle branch block. Review of Systems 2 Const: Denies: fever(s), chills or diaphoresis Card: Reports: edema and orthopnea; Denies: chest pain, palpitations, lightheadedness or syncope Resp: Reports: dyspnea and chest congestion; Denies: hemoptysis GI: Denies: abdominal pain, nausea or vomiting : Denies: dysuria, urinary frequency or urinary urgency Musc: Denies: neck pain, back pain or extremity pain Skin/Breast: Denies: rash Neuro: Denies: dizziness Endo: Denies: polyuria or polydipsia Medications/Allergies Home Medications Medication Instructions Recorded Confirmed Last Taken Type atorvastatin 80 mg tablet 40 mg PO DAILY 11/04/19 10/24/23 Unknown History warfarin 2.5 mg tablet 2.5 mg PO DIRECTED #90 tabs 02/23/23 10/24/23 Unknown Rx clopidogrel 75 mg tablet 75 mg PO DAILY #90 tabs 04/04/23 10/24/23 Unknown Rx sacubitril 97 mg-valsartan 103 mg 1 tab PO BID #180 tabs 06/01/23 10/24/23 10/24/23 07:30 Rx tablet furosemide 20 mg tablet 10 mg (1/2 x 20 mg) PO QAM #45 tabs 07/11/23 10/24/23 Unknown Rx ezetimibe 10 mg tablet 10 mg PO DAILY 10/24/23 10/24/23 Unknown History fluticasone propionate 50 2 spray intranasal DAILY 10/24/23 10/24/23 Unknown History mcg/actuation nasal spray,suspension spironolactone 25 mg tablet 25 mg PO DAILY 10/24/23 10/24/23 Unknown History Allergies Allergy/AdvReac Type Severity Reaction Status Date / Time empagliflozin Allergy ADR-Gastrointestinal Verified 10/24/23 11:10 [From Jardiance] Upset carvedilol AdvReac Intermediate fatigue Verified 08/16/23 14:09 and hypotension PFSH Acute 2 PFSH: Medical History Degenerative joint disease of left hip Warfarin anticoagulation Left ventricular ejection fraction less than 20% History of nonmelanoma skin cancer Cardiomyopathy Patient refused ICD implantation ASHD (arteriosclerotic heart disease) Hyperlipidemia Hypertension Otalgia Atrial fibrillation Surgical History History of PTCA Hx of CABG Family History Father CAD (coronary artery disease) Lung disease Brother CAD (coronary artery disease) Cancer Denies family history of Diabetes Clotting disorder Dementia Chronic kidney disease (CKD) Suicide Anesthesia complication Bleeding disorder Stroke Social History Smoking and tobacco/nicotine status: never used tobacco/nicotine Alcohol intake: never Substance/Drug Use: never Vitals/I&O/Wt Last Vital Signs Temp 98.4 F 10/25/23 04:17 Pulse 90 10/25/23 06:00 Resp 18 10/25/23 04:17 BP 93/60 10/25/23 04:17 Pulse Ox 96 10/25/23 04:17 O2 Del Method Nasal Cannula 10/25/23 04:17 O2 Flow Rate 1 10/25/23 04:17 10/24/23 10/25/23 10/25/23 22:59 06:59 14:59 Output Total 300 / 300 Balance -300 / -300 Weight last 48 hrs Weight 183 lb Weight 183 lb 3 oz Weight 180 lb Physical Exam 2 Narrative: GENERAL: Patient is alert, awake and oriented x3. [] NECK: No jugular vein distension. [] HEENT: No cyanosis. No icterus. No pallor. [] HEART: Irregularly irregular. LUNGS: Diminished air entry with crackles bilaterally. CENTRAL NERVOUS SYSTEM: Grossly nonfocal. [] EXTREMITIES: Lower extremities with 1+ edema bilaterally. Urinary Catheter Management: Hawkins: Cath Placed During This Visit: yes Reason for Continuing Indwelling Catheter: Accurate Measurement of Urinary Output in Critically Ill Patients Urinary Catheter Date of Insertion: 10/24/23 Urinary Catheter Time of Insertion: 18:00 Data 10/25/23 03:03 10/25/23 03:03 A&P Assessment and plan (1) Atrial fibrillation: Qualifiers: Atrial fibrillation type: longstanding persistent Qualified Code(s): I 48.11 - Longstanding persistent atrial fibrillation (2) Hx of CABG: (3) Hypertension: Qualifiers: Hypertension type: essential hypertension Qualified Code(s): I10 - Essential (primary) hypertension (4) Hyperlipidemia: Qualifiers: Hyperlipidemia type: mixed hyperlipidemia Qualified Code(s): E78.2 - Mixed hyperlipidemia (5) ASHD (arteriosclerotic heart disease): (6) Cardiomyopathy: Qualifiers: Cardiomyopathy type: ischemic Qualified Code(s): I25.5 - Ischemic cardiomyopathy (7) Systolic congestive heart failure: Plan Patient has presented with congestive heart failure exacerbation. We will start IV Lasix 20 mg twice daily. He got 1 dose yesterday. Feeling better already. Close I&O's and renal function monitoring His antihypertensive regimen was put on hold as he was becoming hypotensive. We will restart Entresto at a lower dose. Can start at 24-26 mg twice daily for now. As blood pressure allows, we will uptitrate it Thank you for involving us with care of this patient. Will continue to follow. Please call with questions. Consult Attestations 2 Medical Necessity Statement: Care expected to cross 2 midnights. Coding Level of Care Code Acute Code for Chg Fwd Diagnoses Longstanding persistent atrial fibrillation I48.11 Atrial fibrillation type: longstanding persistent Hx of CABG Z95.1 Essential hypertension I10 Hypertension type: essential hypertension Mixed hyperlipidemia E78.2 Hyperlipidemia type: mixed hyperlipidemia ASHD (arteriosclerotic heart disease) I25.10 Ischemic cardiomyopathy I25.5 Cardiomyopathy type: ischemic Systolic congestive heart failure I50.20
[2023-10-25] MEDS: FUROsemide 10 mg/mL SDV 2mL 20 MG IVP ×2 (08:07→20:23)
[2023-10-25] MEDS: clopidogrel 75 mg Tablet PO (08:08)
[2023-10-25] MEDS: atorvastatin 40 mg Tablet PO (08:08)
[2023-10-25] MEDS: pantoprazole DR 40 mg Tablet PO (08:08)
[2023-10-25] MEDS: ezetimibe 10 mg Tablet PO (08:08)
--- NOTE | 2023-10-25 08:54 | PC.NURSE ---
pt stated he is not aware that he is allergic to these 2 meds listed in his chart. 2 meds are removed.
--- NOTE | 2023-10-25 12:41 | P.PN_ITS ---
Subjective 2 Subjective: No acute events overnight. Seen with daughter at bedside. Patient is awake and alert. States he is feeling a lot better. Remains on room air. States he was able to lie down flatter than usual last night to sleep. Denies any nausea, vomiting, headache or chest pains. Vitals/I&O/Wt Last Vital Signs Temp 99.0 F 10/25/23 11:53 Pulse 87 10/25/23 11:53 Resp 16 10/25/23 11:53 BP 94/59 10/25/23 11:53 Pulse Ox 94 10/25/23 11:53 O2 Del Method Room Air 10/25/23 11:53 O2 Flow Rate 1 10/25/23 04:17 10/24/23 10/25/23 10/25/23 22:59 06:59 14:59 Intake Total 100 / 100 Output Total 300 / 300 600 / 600 Balance -300 / -300 -500 / -500 Weight last 48 hrs Weight 83.007 kg Weight 83.092 kg Weight 81.647 kg Physical Exam 2 Narrative: General: No acute distress, AO x3 HEENT: PERRLA, pupils bilaterally equal and reactive Chest: Normal vesicular breath sounds, no added sounds, equal good air entry bilaterally CVS: S1-S2 regular, no murmurs, no tachycardia, no gallops, no rubs Abdomen: Soft, nontender, no organomegaly, bowel sounds present Neuro: No focal deficits, no facial deformity, AO x3, power 5/5 in all limbs Urinary Catheter Management: Hawkins: Cath Placed During This Visit: yes Reason for Continuing Indwelling Catheter: Accurate Measurement of Urinary Output in Critically Ill Patients Urinary Catheter Date of Insertion: 10/24/23 Urinary Catheter Time of Insertion: 18:00 Data 10/25/23 03:03 10/25/23 03:03 A&P Assessment and plan (1) Systolic congestive heart failure: Symptoms most likely in setting of systolic congestive heart failure. Echocardiogram done shows an EF of 15 to 20% with severe global LV hypokinesia with normal RV functions, RVSP of 35 to 40 mmHg with mild pulmonary hypertension, mild to moderate eccentric MR, moderate AI, dilated IVC. Appreciate cardiology recommendations. Strict input output charting, daily weights. Hawkins catheterization. IV Lasix 20 mg twice daily. 20 mEq of oral potassium. Restart Entresto at a lower dose. Hold off on spironolactone. Monitor electrolytes and renal functions. Keep potassium around 4, magnesium around 2. (2) Hypotension: Goal blood pressure less than 140/90 mmHg. Blood pressure is better today. Restart Entresto at a lower dose. Hold off on spironolactone. Target mean artery pressure 65. (3) Cardiomyopathy: Ischemic cardiomyopathy. Treatment as above. Patient has refused ICD in the past. No active chest pain. Appreciate A1c, lipid panel. Continue with home dose of statin and Plavix. Qualifiers: Cardiomyopathy type: ischemic Qualified Code(s): I25.5 - Ischemic cardiomyopathy (4) Atrial fibrillation: Currently rate controlled. Telemetry. Continue with warfarin for anticoagulation at home dose. INR at goal on admission. Qualifiers: Atrial fibrillation type: longstanding persistent Qualified Code(s): I 48.11 - Longstanding persistent atrial fibrillation (5) Left ventricular ejection fraction less than 20%: (6) Hx of CABG: (7) Warfarin anticoagulation: Plan CODE STATUS: Full code. will be the DPOA. Cardiac diet, fluid restriction less than 1500 cc. Protonix for PUD prophylaxis Warfarin will still be sufficient for DVT prophylaxis Attestations 2 Medical Necessity Statement*: Requires further hospitalization for management of congestive heart failure in a patient with history of PFO 20% while heart failure medications adjusted Diagnoses Systolic congestive heart failure I50.20 Hypotension I95.9 Ischemic cardiomyopathy I25.5 Cardiomyopathy type: ischemic Longstanding persistent atrial fibrillation I48.11 Atrial fibrillation type: longstanding persistent Left ventricular ejection fraction less than 20% R94.30 Hx of CABG Z95.1 Warfarin anticoagulation Z79.01
[2023-10-25] MEDS: potassium chloride ER 20 mEq Tablet PO (14:17)
--- NOTE | 2023-10-25 14:51 | XR_ITS ---
WS: [id number] Portable AP upright chest, 10/25/2023 Clinical Data: frequent coughing after taking pill, thought he aspirated Comparison: Portable chest, 10/24/2023 Findings: The heart is enlarged. There are small bilateral pleural effusions. The pulmonary vasculari ty is not increased. No pneumonia or pneumothorax is present. There are midline sternotomy sutures. T here is calcification overlying the left cardiac border unchanged. Monitor leads are on the chest wal l. The aortic arch and descending thoracic aorta show tortuosity. Impression: 1. Cardiomegaly with small bilateral effusions. 2. Atherosclerosis.
[2023-10-25] MEDS: guaiFENesin 100 mg/5 mL UDC 10 mL 200 MG PO (16:57)
[2023-10-25] MEDS: warfarin 5 mg Tablet 2.5 MG PO (16:58)
[2023-10-25] MEDS: sacubitril/valsartan 24-26 mg Tablet 1 EACH PO (18:03)
[2023-10-26] VITALS: BP 164/68; PULSE 83; RESP 17; TEMP 36.9; O2SAT 97
[2023-10-26 03:59] LABS: Basophils % 0.1 %; Eosinophils # 0.1 10^3/uL (0.0-0.8); Lymphocytes # 1.7 10^3/uL (0.8-4.8); Mean Corpuscular HGB Conc 31.4 g/dL (30-55); Mean Corpuscular Hemoglobin 27.8 pg (27-33); Mean Corpuscular Volume 88.7 fl (82-101); Mean Platelet Volume 11.5 fL (7.4-10.4); Monocytes # 0.9 10^3/uL (0.2-0.9); Monocytes % 10.3 %; Neutrophils # 6.07 10^3/uL (1.8-7.7); Neutrophils % 69.3 %; Nucleated Red Blood Cells % 0 %; Platelet Count 135 10^3/cmm (157-399); Red Blood Count 4.17 10^6/uL (3.85-5.65); Red Cell Distribution Width 16.8 % (12.1-15.1); White Blood Count 8.77 10^3/uL (3.29-11.43)
[2023-10-26 04:00] VITALS: BP 107/70; PULSE 77; RESP 18; TEMP 36.8; O2SAT 97
[2023-10-26 04:27] LABS: Alanine Aminotransferase 27 U/L (0-41); Albumin Level 3.3 g/dL (3.5-5.2); Alkaline Phosphatase 85 U/L (40-130); Blood Urea Nitrogen 33 mg/dL (8-23); Calcium 7.9 mg/dL (8.5-10.5); Carbon Dioxide 28 mmol/L (22-29); Chloride 103 mmol/L (98-107); Creatinine Clr Calc Pharmacy 57.3632; Globulin 2.7 g/dL (1.3-4.6); Glucose 101 mg/dL (65-115); Osmolality Calculated 299 mOsm/kg (285-295); Sodium 141 mmol/L (136-145); Total Bilirubin 1.3 mg/dL (0.15-1.2)
[2023-10-26 04:31] LABS: Aspartate Amino Transferase 17 U/L (0-40)
[2023-10-26 06:00] VITALS: PULSE 91
[2023-10-26 08:00] VITALS: BP 109/66; PULSE 98; RESP 19; TEMP 36.9; O2SAT 95
--- NOTE | 2023-10-26 08:09 | P.PN_ITS ---
Subjective 2 Subjective: Patient is admitted to the hospital with the features of decompensated heart failure. He was treated with IV diuresis. Currently the heart failure seems to be fairly compensated. He is ambulating on telemetry No new symptoms. No fever, chills or cough. Medications: Medication Review Details: Current Medications Acetaminophen (Acetaminophen 325 Mg Tablet) 650 mg PO Q6H PRN PRN Reason: Mild/Mod Pain Or Temp >/= 101 Atorvastatin Calcium (Atorvastatin 40 Mg Tablet) 40 mg PO DAILY [facility] Last Admin: 10/25/23 08:08 Dose: 40 mg Bisacodyl (Bisacodyl 5 Mg Tablet) 10 mg PO DAILY PRN; Protocol PRN Reason: Constipation (see protocol) Clopidogrel Bisulfate (Clopidogrel 75 Mg Tablet) 75 mg PO DAILY [facility] Last Admin: 10/25/23 08:08 Dose: 75 mg Ezetimibe (Ezetimibe 10 Mg Tablet) 10 mg PO DAILY [facility] Last Admin: 10/25/23 08:08 Dose: 10 mg Fluticasone Propionate (Fluticasone Nasal [place] 16gm Btl) 2 spray INTRANASAL DAILY [facility] Last Admin: 10/25/23 08:12 Dose: Not Given Furosemide (Furosemide 10 Mg/Ml Sdv 2ml) 20 mg IVP Q12H [facility] Last Admin: 10/25/23 20:23 Dose: 20 mg Guaifenesin (Guaifenesin 100 Mg/5 Ml Udc 10 Ml) 200 mg PO Q4H PRN PRN Reason: COUGH AND CONGESTION Last Admin: 10/25/23 16:57 Dose: 200 mg Lactulose (Lactulose Oral Liq 20 Gm/30 Ml Udc) 10 gm PO DAILY PRN; Protocol PRN Reason: Constipation (see protocol) Magnesium Hydroxide (Magnesium Hydroxide 30 Ml Udc) 30 ml PO DAILY PRN; Protocol PRN Reason: Constipation (see protocol) Morphine Sulfate (Morphine 4 Mg/Ml Sdv 1 Ml) 2 mg IVP Q4H PRN PRN Reason: SEVERE PAIN Ondansetron HCl (Ondansetron 2 Mg/Ml Sdv 2 Ml) 4 mg IVP Q8H PRN PRN Reason: vomiting, or N/V if npo Pantoprazole Sodium (Pantoprazole Dr 40 Mg Tablet) 40 mg PO DAILY [facility] Last Admin: 10/25/23 08:08 Dose: 40 mg Sacubitril/Valsartan (Sacubitril/Valsartan 24-26 Mg Tablet) 1 each PO BID [facility] Last Admin: 10/25/23 18:03 Dose: 1 each Warfarin Sodium (Warfarin 5 Mg Tablet) 2.5 mg PO SuTuWeThFrSa [facility] Last Admin: 10/25/23 16:58 Dose: 2.5 mg Warfarin Sodium (Warfarin 2.5 Mg Tablet) 1.25 mg PO Mo [facility] Vitals/I&O/Wt Last Vital Signs Temp 98.3 F 10/26/23 04:00 Pulse 91 10/26/23 06:00 Resp 18 10/26/23 04:00 BP 107/70 10/26/23 04:00 Pulse Ox 97 10/26/23 04:00 O2 Del Method Nasal Cannula 10/26/23 04:00 O2 Flow Rate 1 10/25/23 04:17 10/25/23 10/26/23 10/26/23 22:59 06:59 14:59 Intake Total 360 / 580 460 / 1040 Output Total 500 / 1100 900 / 2000 Balance -140 / -520 -440 / -960 Weight last 48 hrs Weight 184 lb 4.8 oz Weight 183 lb Weight 183 lb 3 oz Weight 180 lb Physical Exam 2 Narrative: GENERAL: The patient is alert and oriented times three. Not in any acute distress. HEENT: No significant pallor, icterus or lymphadenopathy.Oral cavity: There are no mucous membrane lesions. NECK: Trachea appears to be central. No masses noted. No JVD or thyromegaly appreciated. RESPIRATORY: Chest is symmetrical. No intercostals muscle retraction or any accessory muscle activation. There is no chest wall tenderness. Breath sounds are heard bilaterally. No rales or rhonchi heard. No evidence of any consolidation. BREASTS: Deferred. HEART: The heart sounds are normal. No S3 or S4. Short systolic murmur at the base of the heart. No diastolic murmurs. No pericardial rub ABDOMEN: No vessel pulsations or distention. No tenderness. No organomegaly appreciated. Bowel sounds are normally heard. : Deferred. RECTAL: Deferred. LYMPHATIC: No lymphadenopathy noted in the neck. EXTREMITIES: No edema or cyanosis. No clubbing. MUSCULOSKELETAL: No acute joint deformities or swelling SKIN: There are no significant rashes or ecchymosis NEUROPSYCHIATRIC: The patient is alert and oriented x3. Appears to be in a good mood. No tremors or rigidity noted. Urinary Catheter Management: Hawkins: Cath Placed During This Visit: yes Reason for Continuing Indwelling Catheter: Accurate Measurement of Urinary Output in Critically Ill Patients Urinary Catheter Date of Insertion: 10/24/23 Urinary Catheter Time of Insertion: 18:00 Data 10/26/23 03:12 10/26/23 03:12 Other Labs: Laboratory Last Values WBC 8.77 10^3/uL (3.29-11.43) 10/26/23 03:12 RBC 4.17 10^6/uL (3.85-5.65) 10/26/23 03:12 Hgb 11.60 g/dL (11.27-16.99) 10/26/23 03:12 Hct 37.0 % (37-53) 10/26/23 03:12 MCV 88.7 fl (82-101) 10/26/23 03:12 MCH 27.8 pg (27-33) 10/26/23 03:12 MCHC 31.4 g/dL (30-55) 10/26/23 03:12 RDW 16.8 % (12.1-15.1) H 10/26/23 03:12 Plt Count 135 10^3/cmm (157-399) L 10/26/23 03:12 MPV 11.5 fL (7.4-10.4) H 10/26/23 03:12 Neut % (Auto) 69.3 % 10/26/23 03:12 Lymph % (Auto) 19.0 % 10/26/23 03:12 [place] % (Auto) 10.3 % 10/26/23 03:12 Eos % (Auto) 1.0 % 10/26/23 03:12 Baso % (Auto) 0.1 % 10/26/23 03:12 Neut # (Auto) 6.07 10^3/uL (1.8-7.7) 10/26/23 03:12 Lymph # (Auto) 1.7 10^3/uL (0.8-4.8) 10/26/23 03:12 [place] # (Auto) 0.9 10^3/uL (0.2-0.9) 10/26/23 03:12 Eos # (Auto) 0.1 10^3/uL (0.0-0.8) 10/26/23 03:12 Baso # (Auto) 0.0 10^3/uL (0.0-0.1) 10/26/23 03:12 Nucleated RBC % (auto) 0 % 10/26/23 03:12 Nucleated RBCs # 0.0 /100WBC 10/26/23 03:12 PT 27.00 SECONDS (12.1-14.9) H 10/24/23 16:34 INR 2.40 (0.8-1.2) H 10/24/23 16:34 Sodium 141 mmol/L (136-145) 10/26/23 03:12 Potassium 4.0 mmol/L (3.5-5.1) 10/26/23 03:12 Chloride 103 mmol/L (98-107) 10/26/23 03:12 Carbon Dioxide 28 mmol/L (22-29) 10/26/23 03:12 Anion Gap 14.0 (5-19) 10/26/23 03:12 BUN 33 mg/dL (8-23) H 10/26/23 03:12 Creatinine 1.1 mg/dL (0.7-1.2) 10/26/23 03:12 GFR Calculation Not Reportable 10/26/23 03:12 Glucose 101 mg/dL (65-115) 10/26/23 03:12 Estimat Average Glucose 117 10/25/23 03:03 Hemoglobin A1c 5.7 % (4.0-6.0) 10/25/23 03:03 Calculated Osmolality 299 mOsm/kg (285-295) H 10/26/23 03:12 Calcium 7.9 mg/dL (8.5-10.5) L 10/26/23 03:12 Phosphorus 3.4 mg/dL (2.5-4.5) 10/25/23 03:03 Magnesium 2.1 mg/dL (1.7-2.3) 10/25/23 03:03 Iron 47 ug/dL (59-158) L 10/24/23 16:34 TIBC 219 mcg/dl 10/24/23 16:34 % Saturation 21.4 % (20-50) 10/24/23 16:34 Unsat Iron Binding 172 ug/dL (112-347) 10/24/23 16:34 Total Bilirubin 1.3 mg/dL (0.15-1.2) H 10/26/23 03:12 AST 17 U/L (0-40) 10/26/23 03:12 ALT 27 U/L (0-41) 10/26/23 03:12 Alkaline Phosphatase 85 U/L (40-130) 10/26/23 03:12 Troponin T Baseline 25 ng/L (0-15) H 10/24/23 10:55 Troponin T 120 Minute 27.51 ng/L (0-15) H 10/24/23 12:52 Delta Troponin T 2.51 ABS# (0-10) 10/24/23 12:52 Troponin T Hi Sens 6Hr 29.51 ng/L (0-15) H 10/24/23 16:34 Troponin T Hi Sens 6Hr Delta 4.51 ng/L (0-12) 10/24/23 16:34 NT-Pro-B Natriuret Pep 6512 pg/mL (0-450) H 10/24/23 16:34 Total Protein 6.0 g/dL (6.6-8.7) L 10/26/23 03:12 Albumin 3.3 g/dL (3.5-5.2) L 10/26/23 03:12 Globulin 2.7 g/dL (1.3-4.6) 10/26/23 03:12 Triglycerides 71 mg/dL (0-150) 10/25/23 03:03 Cholesterol 99 mg/dL (0-200) 10/25/23 03:03 LDL Cholesterol, Calc 57 mg/dL (50-129) 10/25/23 03:03 HDL Cholesterol 28 mg/dL (60-100) L 10/25/23 03:03 LDL/HDL Ratio 2.04 RATIO (0.00-3.22) 10/25/23 03:03 Cholesterol/HDL Ratio 3.54 mg/dL (1.0-5.00) 10/25/23 03:03 Vitamin B12 304 pg/mL (232-1245) 10/24/23 16:34 Folate 11.8 ng/mL (4.5-32.2) 10/25/23 03:03 Procalcitonin 0.07 ng/mL (0-0.5) 03/06/24 16:34 TSH 3.40 uIU/mL (0.27-4.20) 10/24/23 16:34 Urine Color Yellow (Yellow) 10/24/23 18:03 Urine Appearance Clear (CLEAR) 10/24/23 18:03 Urine pH 5 (5-7) 10/24/23 18:03 Ur Specific [place] 1.015 (1.005-1.030) 10/24/23 18:03 Urine Protein Neg (Negative) 10/24/23 18:03 Urine Glucose (UA) Norm (Normal) 10/24/23 18:03 Urine Ketones Negative (Negative) 10/24/23 18:03 Urine Blood 3+ (Negative) H 10/24/23 18:03 Urine Nitrate Negative (Negative) 10/24/23 18:03 Urine Bilirubin Neg (Negative) 10/24/23 18:03 Urine Urobilinogen Norm mg/dL (Negative) 10/24/23 18:03 Ur Leukocyte Esterase Negative (Negative) 10/24/23 18:03 Urine RBC 40-50 /hpf (0-2) H 10/24/23 18:03 Urine WBC 0-4 /hpf (0-5) H 10/24/23 18:03 Ur Squamous Epith Cells 0-4 /hpf (0-5) H 10/24/23 18:03 Amorphous Sediment Not Reportable 10/24/23 18:03 Urine Bacteria Trace /hpf (NONE) 10/24/23 18:03 Urine Mucus 1+ /hpf 10/24/23 18:03 A&P Assessment and plan (1) Acute on chronic systolic heart failure: The heart failure seems to be fairly compensated. He may continue on the current medications. (2) Chronic atrial fibrillation: The heart rate is under control. Patient is on long-term oral anticoagulation. This may be continued. (3) Ischemic cardiomyopathy: Patient was on the maximum dose of the Entresto. Because of the hypotension, this was cut back. May be kept on the current dose. We may try to gradually advance the dose as an outpatient. (4) ASHD (arteriosclerotic heart disease): Since the patient has no specific symptoms of coronary insufficiency, is advised to continue on the current medications. We will continue on the risk modifying measures. Advised to contact our office, if the patient develop any significant chest pain or other ischemic symptoms (5) Warfarin anticoagulation: Patient may continue on the current anticoagulation regimen. (6) Hypertension: Currently normotensive. May continue on the current medication. If the patient continues remain stable, may be discharged home from a cardiac standpoint. I will see him in the office in 1 month. Appointment with the nurse practitioner in 1 week Qualifiers: Hypertension type: essential hypertension Qualified Code(s): I10 - Essential (primary) hypertension (7) Hyperlipidemia: May continue on the current medications. Qualifiers: Hyperlipidemia type: mixed hyperlipidemia Qualified Code(s): E78.2 - Mixed hyperlipidemia Plan Possible discharge home today. Attestations 2 Medical Necessity Statement*: Disposition as per the primary Coding Level of Care Code 93691 Diagnoses Acute on chronic systolic heart failure I50.23 Chronic atrial fibrillation I48.20 Ischemic cardiomyopathy I25.5 ASHD (arteriosclerotic heart disease) I25.10 Warfarin anticoagulation Z79.01 Essential hypertension I10 Hypertension type: essential hypertension Mixed hyperlipidemia E78.2 Hyperlipidemia type: mixed hyperlipidemia
[2023-10-26] MEDS: sacubitril/valsartan 24-26 mg Tablet 1 EACH PO (08:33)
[2023-10-26] MEDS: atorvastatin 40 mg Tablet PO (08:33)
[2023-10-26] MEDS: pantoprazole DR 40 mg Tablet PO (08:33)
[2023-10-26] MEDS: clopidogrel 75 mg Tablet PO (08:33)
[2023-10-26] MEDS: ezetimibe 10 mg Tablet PO (08:33)
[2023-10-26] MEDS: FUROsemide 10 mg/mL SDV 2mL 20 MG IVP (08:33)
--- NOTE | 2023-10-26 09:41 | P.DS_ITS ---
Discharge Providers Date of Admission: 10/24/23 21:48 Date of Discharge: October 26, 2023 Attending Provider at Admission: Percy Lamar MD Attending Provider at Discharge: Percy Lamar MD Consults: Cardiology: Dr. Milligan/Dr. Arrieta Primary Care Provider: Sly Hagen DO Diagnoses at Discharge Discharge Diagnosis (1) Atrial fibrillation: Status: Acute Qualifiers: Atrial fibrillation type: longstanding persistent Qualified Code(s): I48.11 - Longstanding persistent atrial fibrillation (2) Hx of CABG: Status: Acute (3) Hypertension: Status: Acute Qualifiers: Hypertension type: essential hypertension Qualified Code(s): I10 - Essential (primary) hypertension (4) Hyperlipidemia: Status: Acute Qualifiers: Hyperlipidemia type: mixed hyperlipidemia Qualified Code(s): E78.2 - Mixed hyperlipidemia (5) ASHD (arteriosclerotic heart disease): Status: Acute (6) Cardiomyopathy: Status: Acute Qualifiers: Cardiomyopathy type: ischemic Qualified Code(s): I25.5 - Ischemic cardiomyopathy Permanent problem details: Patient refused ICD implantation (7) Systolic congestive heart failure: Status: Acute Reason for Visit Reason for Visit: sob, congestion Hospital Course Hospital Course Oswaldo Green is a 83 year old male with past medical history of ischemic cardiomyopathy, EF of 20%, congestive heart failure, atrial fibrillation, not on ICD for primary prevention presents to the ER today because of difficulty in breathing which has been getting worse over last 1 week. Patient states he has been having difficulty in breathing on exertion for last 1 month more than usual but for last 1 week he is getting winded on minimal ambulation. He has required more number of pillows than usual over the last 1 week and he seems to have gained around 4 to 5 pounds in a week as well. Any chest pain, palpitations. But does complain of early satiety, nausea on eating and early fullness. Denies any changes in medications recently. Has not had a stress test or echocardiogram in a long time. Patient was admitted to the hospital further evaluation and management of congestive heart failure. He underwent repeat echocardiogram which showed a stable EF of 5020% with dilated LV. He was started on IV diuresis. On admission patient had borderline blood pressures for which his antihypertensives were adjusted. Patient responded well to the treatment and his symptoms resolved. He has been discharged in medically stable condition on oral Lasix 20 mg twice daily and decreased dose of Entresto. He is to continue taking his warfarin as before. He is to follow-up with his primary care provider within next 1 week and with Angeline Mcgovern on set appointment. Physical Exam Narrative: General: No acute distress, AO x3 HEENT: PERRLA, pupils bilaterally equal and reactive Chest: Normal vesicular breath sounds, no added sounds, equal good air entry bilaterally CVS: S1-S2 regular, no murmurs, no tachycardia, no gallops, no rubs Abdomen: Soft, nontender, no organomegaly, bowel sounds present Neuro: No focal deficits, no facial deformity, AO x3, power 5/5 in all limbs Urinary Catheter Management: Hawkins: Cath Placed During This Visit: yes Reason for Continuing Indwelling Catheter: Accurate Measurement of Urinary Outpu t in Critically Ill Patients Urinary Catheter Date of Insertion: 10/24/23 Urinary Catheter Time of Insertion: 18:00 Discharge Data Studies Completed and Pending Completed Studies During Hospitalization Category Date Time Status XR chest 1V portable [id number] Stat Exams 10/24/23 10:53 Completed XR chest 1V portable [id number] Urgent Exams 10/25/23 14:51 Completed CV. echo complete* [id number] Routine Ultrasound 10/24/23 15:59 Completed Pending at discharge Category Date Time Status Urine Culture Routine Lab 10/24/23 18:03 Received Laboratory Results WBC 8.77 10^3/uL (3.29-11.43) 10/26/23 03:12 RBC 4.17 10^6/uL (3.85-5.65) 10/26/23 03:12 Hgb 11.60 g/dL (11.27-16.99) 10/26/23 03:12 Hct 37.0 % (37-53) 10/26/23 03:12 MCV 88.7 fl (82-101) 10/26/23 03:12 MCH 27.8 pg (27-33) 10/26/23 03:12 MCHC 31.4 g/dL (30-55) 10/26/23 03:12 RDW 16.8 % (12.1-15.1) H 10/26/23 03:12 Plt Count 135 10^3/cmm (157-399) L 10/26/23 03:12 MPV 11.5 fL (7.4-10.4) H 10/26/23 03:12 Neut % (Auto) 69.3 % 10/26/23 03:12 Lymph % (Auto) 19.0 % 10/26/23 03:12 [place] % (Auto) 10.3 % 10/26/23 03:12 Eos % (Auto) 1.0 % 10/26/23 03:12 Baso % (Auto) 0.1 % 10/26/23 03:12 Neut # (Auto) 6.07 10^3/uL (1.8-7.7) 10/26/23 03:12 Lymph # (Auto) 1.7 10^3/uL (0.8-4.8) 10/26/23 03:12 [place] # (Auto) 0.9 10^3/uL (0.2-0.9) 10/26/23 03:12 Eos # (Auto) 0.1 10^3/uL (0.0-0.8) 10/26/23 03:12 Baso # (Auto) 0.0 10^3/uL (0.0-0.1) 10/26/23 03:12 Nucleated RBC % (auto) 0 % 10/26/23 03:12 Nucleated RBCs # 0.0 /100WBC 10/26/23 03:12 PT 27.00 SECONDS (12.1-14.9) H 10/24/23 16:34 INR 2.40 (0.8-1.2) H 10/24/23 16:34 Sodium 141 mmol/L (136-145) 10/26/23 03:12 Potassium 4.0 mmol/L (3.5-5.1) 10/26/23 03:12 Chloride 103 mmol/L (98-107) 10/26/23 03:12 Carbon Dioxide 28 mmol/L (22-29) 10/26/23 03:12 Anion Gap 14.0 (5-19) 10/26/23 03:12 BUN 33 mg/dL (8-23) H 10/26/23 03:12 Creatinine 1.1 mg/dL (0.7-1.2) 10/26/23 03:12 GFR Calculation Not Reportable 10/26/23 03:12 Glucose 101 mg/dL (65-115) 10/26/23 03:12 Estimat Average Glucose 117 10/25/23 03:03 Hemoglobin A1c 5.7 % (4.0-6.0) 10/25/23 03:03 Calculated Osmolality 299 mOsm/kg (285-295) H 10/26/23 03:12 Calcium 7.9 mg/dL (8.5-10.5) L 10/26/23 03:12 Phosphorus 3.4 mg/dL (2.5-4.5) 10/25/23 03:03 Magnesium 2.1 mg/dL (1.7-2.3) 10/25/23 03:03 Iron 47 ug/dL (59-158) L 10/24/23 16:34 TIBC 219 mcg/dl 10/24/23 16:34 % Saturation 21.4 % (20-50) 10/24/23 16:34 Unsat Iron Binding 172 ug/dL (112-347) 10/24/23 16:34 Total Bilirubin 1.3 mg/dL (0.15-1.2) H 10/26/23 03:12 AST 17 U/L (0-40) 10/26/23 03:12 ALT 27 U/L (0-41) 10/26/23 03:12 Alkaline Phosphatase 85 U/L (40-130) 10/26/23 03:12 Troponin T Baseline 25 ng/L (0-15) H 10/24/23 10:55 Troponin T 120 Minute 27.51 ng/L (0-15) H 10/24/23 12:52 Delta Troponin T 2.51 ABS# (0-10) 10/24/23 12:52 Troponin T Hi Sens 6Hr 29.51 ng/L (0-15) H 10/24/23 16:34 Troponin T Hi Sens 6Hr Delta 4.51 ng/L (0-12) 10/24/23 16:34 NT-Pro-B Natriuret Pep 6512 pg/mL (0-450) H 10/24/23 16:34 Total Protein 6.0 g/dL (6.6-8.7) L 10/26/23 03:12 Albumin 3.3 g/dL (3.5-5.2) L 10/26/23 03:12 Globulin 2.7 g/dL (1.3-4.6) 10/26/23 03:12 Triglycerides 71 mg/dL (0-150) 10/25/23 03:03 Cholesterol 99 mg/dL (0-200) 10/25/23 03:03 LDL Cholesterol, Calc 57 mg/dL (50-129) 10/25/23 03:03 HDL Cholesterol 28 mg/dL (60-100) L 10/25/23 03:03 LDL/HDL Ratio 2.04 RATIO (0.00-3.22) 10/25/23 03:03 Cholesterol/HDL Ratio 3.54 mg/dL (1.0-5.00) 10/25/23 03:03 Vitamin B12 304 pg/mL (232-1245) 10/24/23 16:34 Folate 11.8 ng/mL (4.5-32.2) 10/25/23 03:03 Procalcitonin 0.07 ng/mL (0-0.5) 10/24/23 16:34 TSH 3.40 uIU/mL (0.27-4.20) 10/24/23 16:34 Urine Color Yellow (Yellow) 10/24/23 18:03 Urine Appearance Clear (CLEAR) 10/24/23 18:03 Urine pH 5 (5-7) 10/24/23 18:03 Ur Specific [place] 1.015 (1.005-1.030) 10/24/23 18:03 Urine Protein Neg (Negative) 10/24/23 18:03 Urine Glucose (UA) Norm (Normal) 10/24/23 18:03 Urine Ketones Negative (Negative) 10/24/23 18:03 Urine Blood 3+ (Negative) H 10/24/23 18:03 Urine Nitrate Negative (Negative) 10/24/23 18:03 Urine Bilirubin Neg (Negative) 10/24/23 18:03 Urine Urobilinogen Norm mg/dL (Negative) 10/24/23 18:03 Ur Leukocyte Esterase Negative (Negative) 10/24/23 18:03 Urine RBC 40-50 /hpf (0-2) H 10/24/23 18:03 Urine WBC 0-4 /hpf (0-5) H 10/24/23 18:03 Ur Squamous Epith Cells 0-4 /hpf (0-5) H 10/24/23 18:03 Amorphous Sediment Not Reportable 10/24/23 18:03 Urine Bacteria Trace /hpf (NONE) 10/24/23 18:03 Urine Mucus 1+ /hpf 10/24/23 18:03 Vitals Last Vital Signs Temp 98.4 F 10/26/23 08:00 Pulse 98 10/26/23 08:00 Resp 19 H 10/26/23 08:00 BP 109/66 10/26/23 08:00 Pulse Ox 95 10/26/23 08:00 O2 Del Method Room Air 10/26/23 08:00 O2 Flow Rate 1 10/25/23 04:17 Discharge Plan Discharge Patient Disposition: Home Condition: Stable Prescriptions: New Entresto 24-26 mg Tablet 1 tab PO BID Qty: 60 0RF guaifenesin 100 mg/5 mL Liquid 200 mg PO Q4H PRN (Reason: Cough And Congestion) Qty: 1000 0RF Continued atorvastatin 80 mg tablet 40 mg PO DAILY warfarin 2.5 mg tablet 2.5 mg PO DIRECTED Qty: 90 3RF Protocol: Dose Management Condition: Sunday Dose/Route: 2.5 mg Instruction: 1 x 2.5 mg tablet Condition: Sunday Dose/Route: 1.25 mg Instruction: 0.5 x 2.5 mg tablets Condition: Sunday Dose/Route: 2.5 mg Instruction: 1 x 2.5 mg tablet Condition: Sunday Dose/Route: 2.5 mg Instruction: 1 x 2.5 mg tablet Condition: Dose/Route: 2.5 mg Instruction: 1 x 2.5 mg tablet Condition: Sunday Dose/Route: 2.5 mg Instruction: 1 x 2.5 mg tablet Condition: Sunday Dose/Route: 2.5 mg Instruction: 1 x 2.5 mg tablet Protocol Text: Adjustment Start Date: Sunday10/15/23 INR Value: 26.0 Seconds INR Date: 10/15/23 Recheck Date: 11/12/23 Rx Instructions: as directed per INR results take 2.5mg po once a day on sun,,sun,,sun and sun and on sunday take 1.25mg (1/2 tab of 2.5mg tab to=1.25mg) po once a day clopidogrel 75 mg tablet 75 mg PO DAILY Qty: 90 3RF fluticasone propionate 50 mcg/actuation [place],Suspension 2 spray INTRANASAL DAILY Rx Instructions: administer into each nostril spironolactone 25 mg tablet 25 mg PO DAILY ezetimibe 10 mg tablet 10 mg PO DAILY Changed furosemide 20 mg tablet 20 mg PO BID Qty: 45 3RF Discontinued sacubitril-valsartan 97-103 mg tablet 1 tab PO BID Qty: 180 1RF Discharge Orders: Discharge Order (Routine); Ordered 10/26/23 Ordered By: Percy Lamar Referrals: Angeline Mcgovern FNP [Nurse Practitioner] - 11/15/23 1:00 pm Sly Hagen, DO [Primary Care Provider] - (Please call Dr. Hagen's Office on Sunday at [phone] to schedule a follow up appointment. Thank you.) Discharge Diet: Usual diet and Cardiac Discharge Activity: Resume usual activity and Increase activity as tolerated Patient Instructions: Furosemide (By mouth) (Lasix), Guaifenesin (By mouth) (Allfen, Antitussin, Chest Congestion..., Sacubitril/Valsartan (By mouth) (Entresto), Heart Failure (DC), A-fib (Atrial Fibrillation) (DC), CHF Stoplight, Opioid Safety, Pain Management Activity Restrictions/Additional Instructions: Restrict fluid intake to less than 1500 cc, salt intake to less than 2 g daily. Advised to check his weight daily at home. Is advised that weight today would be the dry weight and if body weight increases by around 5 pounds, patient is to take an extra dose of Lasix daily till body weight comes down to weight today. If not able to come down to dry body weight in 1 week, then is to call cardiology office for further recommendations. Patient was counseled in detail to take medications regularly as prescribed. Discharge Attestations Time Spent in Discharge Care*: greater than 30 min Specific Discharge Activities: educating patient, educating and/or supporting family/caregiver, discussing with pcp/other providers, discussing with assistant case manager/social workers/dc planners, documenting/other paperwork and evaluating patient/reviewing data Status at Discharge: Cognitive status at discharge: cognitively intact , Behavioral status at discharge: cooperative , Functional status at discharge: independent ambulation , Overall status at discharge: patient is back to base line Quality Metrics Clinical Quality Measures [ No reported AMI, CVA or VTE this stay] Coding Level of Care Code 04313 Total time (in minutes) for Discharge: 60 Diagnoses Longstanding persistent atrial fibrillation I48.11 Atrial fibrillation type: longstanding persistent Hx of CABG Z95.1 Essential hypertension I10 Hypertension type: essential hypertension Mixed hyperlipidemia E78.2 Hyperlipidemia type: mixed hyperlipidemia ASHD (arteriosclerotic heart disease) I25.10 Ischemic cardiomyopathy I25.5 Cardiomyopathy type: ischemic Systolic congestive heart failure I50.20
--- NOTE | 2023-10-26 11:56 | PC.SOCIAL ---
Pg 2 IMM Explained to pt Pg 2 IMM. No questions voiced. Provided pt a copy. Initialed, dated, & timed a copy & placed in chart.
[2023-10-26 12:00] VITALS: BP 105/66; PULSE 90; RESP 13; TEMP 36.8; O2SAT 94
--- NOTE | 2023-10-26 12:47 | PC.NURSE ---
Ambulated down hallways, he denies any shortness of breath or dizziness, HR for a second went up to 110 but is mostly above 80s to 90s, afib rhythm. BP-105/66. Hospitalist notified.
[2023-10-26 13:03] VITALS: BP 105/66; PULSE 90; RESP 13; TEMP 36.8; O2SAT 94
== END 2023-10-26 13:53 | disposition home or self-care (01) | DRG 291 ==
LOC: ER 14:54 → ER IP 16:39 → CSU 21:48
PROVIDERS: Admitting Provider Student in an Organized Health Care Education/Training Program; Emergency Provider Family Medicine; PCP Internal Medicine; Visit Provider Student in an Organized Health Care Education/Training Program
DX: I11.0 Hypertensive heart disease with heart failure (principal); I50.23 Acute on chronic systolic (congestive) heart failure; I48.11 Longstanding persistent atrial fibrillation; I95.9 Hypotension, unspecified; I25.5 Ischemic cardiomyopathy; R68.81 Early satiety; E78.2 Mixed hyperlipidemia; I44.7 Left bundle-branch block, unspecified; Z79.02 Long term (current) use of antithrombotics/antiplatelets; Z79.01 Long term (current) use of anticoagulants; Z85.828 Personal history of other malignant neoplasm of skin; Z95.1 Presence of aortocoronary bypass graft
CPT/HCPCS: 36415; 51702; 71045; 80053; 80061; 81001; 81015; 82607; 82746; 83036; 83540; 83550; 83735; 83880; 84100; 84145; 84443; 84484; 85025; 85610; 87086; 93005; 93306; 94664; 96374; 96376; 99285; J1940

== ENCOUNTER → 2023-11-12 10:30 | Outpatient (BNVA) | payer MEDICARE, MEDICAID, SELFPAY | PROVIDERS: PCP Internal Medicine; Visit Provider Internal Medicine Cardiovascular Disease | DX: I48.11 Longstanding persistent atrial fibrillation (principal) | CPT/HCPCS: 85610 ==

== ENCOUNTER → 2023-11-15 14:00 | Outpatient (BNVA) | payer MEDICARE, MEDICAID, SELFPAY | PROVIDERS: PCP Internal Medicine; Visit Provider Nurse Practitioner Family | DX: R94.30 Abnormal result of cardiovascular function study, unspecified (principal); I10 Essential (primary) hypertension; Z09 Encounter for follow-up examination after completed treatment for conditions other than malignant neoplasm | CPT/HCPCS: 80048; 83880; 99214 ==

== ENCOUNTER → 2023-11-23 07:43 | Outpatient (BNVA) | payer MEDICARE, MEDICAID, SELFPAY | PROVIDERS: PCP Internal Medicine; Visit Provider Student in an Organized Health Care Education/Training Program | DX: M16.12 Unilateral primary osteoarthritis, left hip (principal) | CPT/HCPCS: 20610; 77002; 99213; J3301 ==

== ENCOUNTER → 2023-12-10 10:52 | Outpatient (BNVA) | payer MEDICARE, MEDICAID, SELFPAY | PROVIDERS: PCP Internal Medicine; Visit Provider Internal Medicine Cardiovascular Disease | DX: I48.11 Longstanding persistent atrial fibrillation (principal) | CPT/HCPCS: 85610 ==

== ENCOUNTER → 2024-01-09 13:58 | Outpatient (BNVA) | payer MEDICARE, MEDICAID, SELFPAY | PROVIDERS: PCP Internal Medicine; Visit Provider Internal Medicine Cardiovascular Disease | DX: I10 Essential (primary) hypertension (principal); R94.30 Abnormal result of cardiovascular function study, unspecified; I25.10 Atherosclerotic heart disease of native coronary artery without angina pectoris; I48.20 Chronic atrial fibrillation, unspecified; Z79.01 Long term (current) use of anticoagulants | CPT/HCPCS: 99214 ==

== ENCOUNTER → 2024-01-22 14:05 | Outpatient (BNVA) | payer MEDICARE, MEDICAID, SELFPAY | PROVIDERS: PCP Internal Medicine; Visit Provider Nurse Practitioner Family | DX: D48.5 Neoplasm of uncertain behavior of skin (principal); L57.0 Actinic keratosis; Z85.828 Personal history of other malignant neoplasm of skin; L82.1 Other seborrheic keratosis; L81.4 Other melanin hyperpigmentation | CPT/HCPCS: 11102; 17004; 99213 ==

== ENCOUNTER → 2024-02-06 08:16 | Outpatient (BNVA) | payer MEDICARE, MEDICAID, SELFPAY | PROVIDERS: PCP Internal Medicine; Visit Provider Internal Medicine Cardiovascular Disease | DX: I48.11 Longstanding persistent atrial fibrillation (principal) | CPT/HCPCS: 85610 ==

== ENCOUNTER → 2024-02-20 10:08 | Outpatient (BNVA) | payer MEDICARE, MEDICAID, SELFPAY | PROVIDERS: PCP Internal Medicine; Visit Provider Internal Medicine Cardiovascular Disease | DX: I48.11 Longstanding persistent atrial fibrillation (principal) | CPT/HCPCS: 36415; 85610 ==

== ENCOUNTER → 2024-02-25 09:53 | Outpatient (BNVA) | payer MEDICARE, MEDICAID, SELFPAY | PROVIDERS: PCP Internal Medicine; Visit Provider Internal Medicine Cardiovascular Disease | DX: I25.5 Ischemic cardiomyopathy (principal); I48.11 Longstanding persistent atrial fibrillation; I10 Essential (primary) hypertension; I25.10 Atherosclerotic heart disease of native coronary artery without angina pectoris; Z79.01 Long term (current) use of anticoagulants | CPT/HCPCS: 36415; 80048; 83880; 99214 ==

== ENCOUNTER → 2024-03-07 07:40 | Outpatient (BNVA) | payer MEDICARE, MEDICAID, SELFPAY | PROVIDERS: PCP Internal Medicine; Visit Provider Student in an Organized Health Care Education/Training Program | DX: M16.12 Unilateral primary osteoarthritis, left hip (principal) | CPT/HCPCS: 20610; 77002; 99213; J3301 ==

== ENCOUNTER → 2024-03-19 10:11 | Outpatient (BNVA) | payer MEDICARE, MEDICAID, SELFPAY | PROVIDERS: PCP Internal Medicine; Visit Provider Internal Medicine Cardiovascular Disease | DX: I48.11 Longstanding persistent atrial fibrillation (principal) | CPT/HCPCS: 85610 ==

== ENCOUNTER → 2024-03-26 10:39 | Outpatient (BNVA) | payer MEDICARE, MEDICAID, SELFPAY | PROVIDERS: PCP Internal Medicine; Visit Provider Internal Medicine Cardiovascular Disease | DX: I48.11 Longstanding persistent atrial fibrillation (principal) | CPT/HCPCS: 85610 ==

== ENCOUNTER → 2024-04-01 14:37 | Outpatient (BNVA) | payer MEDICARE, MEDICAID, SELFPAY | PROVIDERS: PCP Internal Medicine; Visit Provider Nurse Practitioner Family | DX: L57.0 Actinic keratosis (principal); L56.5 Disseminated superficial actinic porokeratosis (DSAP); L82.1 Other seborrheic keratosis; L82.0 Inflamed seborrheic keratosis; Z85.828 Personal history of other malignant neoplasm of skin | CPT/HCPCS: 17000; 17110; 99214 ==

== ENCOUNTER → 2024-04-23 10:37 | Outpatient (BNVA) | payer MEDICARE, MEDICAID, SELFPAY | PROVIDERS: PCP Internal Medicine; Visit Provider Internal Medicine Cardiovascular Disease | DX: I48.11 Longstanding persistent atrial fibrillation (principal) | CPT/HCPCS: 85610 ==

== ENCOUNTER → 2024-05-07 10:59 | Outpatient (BNVA) | payer MEDICARE, MEDICAID, SELFPAY | PROVIDERS: PCP Internal Medicine; Visit Provider Internal Medicine Cardiovascular Disease | DX: I48.11 Longstanding persistent atrial fibrillation (principal) | CPT/HCPCS: 85610 ==

== ENCOUNTER → 2024-05-19 09:43 | Outpatient (BNVA) | payer MEDICARE, MEDICAID, SELFPAY | PROVIDERS: PCP Internal Medicine; Visit Provider Nurse Practitioner Family | DX: R94.30 Abnormal result of cardiovascular function study, unspecified (principal); I10 Essential (primary) hypertension; I48.11 Longstanding persistent atrial fibrillation | CPT/HCPCS: 99214 ==

== ENCOUNTER → 2024-06-04 10:02 | Outpatient (BNVA) | payer MEDICARE, MEDICAID, SELFPAY | PROVIDERS: PCP Internal Medicine; Visit Provider Internal Medicine Cardiovascular Disease | DX: I48.11 Longstanding persistent atrial fibrillation (principal) | CPT/HCPCS: 85610 ==

== ENCOUNTER → 2024-06-05 08:31 | Outpatient (BNVA) | payer MEDICARE, MEDICAID, SELFPAY | PROVIDERS: PCP Internal Medicine; Visit Provider Student in an Organized Health Care Education/Training Program | DX: M16.12 Unilateral primary osteoarthritis, left hip (principal) | CPT/HCPCS: 99213 ==

== ENCOUNTER → 2024-06-10 14:38 | Outpatient (BNVA) | payer MEDICARE, MEDICAID, SELFPAY | PROVIDERS: PCP Internal Medicine; Visit Provider Dermatology | DX: L57.0 Actinic keratosis (principal); L82.1 Other seborrheic keratosis; L81.4 Other melanin hyperpigmentation; L57.8 Other skin changes due to chronic exposure to nonionizing radiation; Z85.828 Personal history of other malignant neoplasm of skin | CPT/HCPCS: 17000; 99213 ==

== ENCOUNTER → 2024-07-02 10:10 | Outpatient (BNVA) | payer MEDICARE, MEDICAID, SELFPAY | PROVIDERS: PCP Internal Medicine; Visit Provider Internal Medicine Cardiovascular Disease | DX: I48.11 Longstanding persistent atrial fibrillation (principal) | CPT/HCPCS: 85610 ==

== ENCOUNTER → 2024-07-04 09:59 | Outpatient (BNVA) | payer MEDICARE, MEDICAID, SELFPAY | PROVIDERS: PCP Internal Medicine; Visit Provider Student in an Organized Health Care Education/Training Program | DX: M16.12 Unilateral primary osteoarthritis, left hip (principal); Z71.89 Other specified counseling | CPT/HCPCS: 20610; 77002; J3301 ==

== ENCOUNTER → 2024-07-14 15:37 | Outpatient (BNVA) | payer MEDICARE, MEDICAID, SELFPAY | PROVIDERS: PCP Internal Medicine; Visit Provider Internal Medicine Cardiovascular Disease | DX: I11.0 Hypertensive heart disease with heart failure (principal); I50.22 Chronic systolic (congestive) heart failure; I48.11 Longstanding persistent atrial fibrillation; I25.10 Atherosclerotic heart disease of native coronary artery without angina pectoris; I25.5 Ischemic cardiomyopathy; Z79.01 Long term (current) use of anticoagulants; Z87.891 Personal history of nicotine dependence | CPT/HCPCS: 99214 ==

== ENCOUNTER → 2024-07-30 10:04 | Outpatient (BNVA) | payer MEDICARE, MEDICAID, SELFPAY | PROVIDERS: PCP Internal Medicine; Visit Provider Internal Medicine Cardiovascular Disease | DX: I48.11 Longstanding persistent atrial fibrillation (principal) | CPT/HCPCS: 85610 ==

== ENCOUNTER 2024-08-26 12:48 | Outpatient (CLI) | payer MEDICARE, MEDICAID, SELFPAY ==
--- NOTE | 2024-08-26 12:50 | CT_ITS ---
WS: [id number] CT SINUSES TECHNIQUE: Noncontrast CT of the paranasal sinuses with coronal and sagittal reformatted images. CLINICAL INFORMATION: CHRONIC SINUSITIS COMPARISON: None. DLP: 361.[address] scans at [facility] use at least one of these dose optimization techniques: automated e xposure control; mA and/or kV adjustment per patient size (includes targeted exams where dose is matc hed to clinical indication); or iterative reconstruction. FINDINGS: Mild RIGHT to LEFT nasal deviation. Inspissated secretions in the LEFT maxillary sinus. Complete opac ification of the LEFT maxillary sinus and LEFT middle meatus. Suspected erosion of the middle turbina te and uncinate. Opacification of the infundibulum. Sclerotic changes involving the LEFT maxillary si nus wall compatible with chronic sinus infection. Retention cyst LEFT posterior ethmoid air cells. Mild mucosal thickening in the ethmoid air cells. Sp henoid sinuses are well aerated. Sphenoid sinus ostia are patent. Frontal sinuses are well aerated. Mastoid air cells are well aerated. Cavernous carotid calcification. CT/CT sinus wo con* [id number] IMPRESSION: 1. Opacification the LEFT maxillary sinus with inspissated secretions. Surr[place] ding bony sclerosis compatible with chronic opacification. 2. Opacification of the LEFT middle meatus and infundibulum. Middle turbinate and uncinate not well visualized may be partially eroded. 3. RIGHT maxillary sinus well aerated. 4. Frontal sinuses are well aerated. 5. Mild mucosal thickening in the ethmoid air cells. Small retention cyst LEFT posterior ethmoid air cell measuring 9 mm. 6. Mastoid air cells are well aerated.
== END 2024-08-26 12:49 | disposition home or self-care (01) ==
LOC: RAD 12:49
PROVIDERS: PCP Family Medicine; Visit Provider Family Medicine
DX: J32.9 Chronic sinusitis, unspecified (principal); R93.89 Abnormal findings on diagnostic imaging of other specified body structures; K11.6 Mucocele of salivary gland; J34.2 Deviated nasal septum; I65.29 Occlusion and stenosis of unspecified carotid artery
CPT/HCPCS: 70486

== ENCOUNTER → 2024-08-27 10:01 | Outpatient (BNVA) | payer MEDICARE, MEDICAID, SELFPAY | PROVIDERS: PCP Family Medicine; Visit Provider Internal Medicine Cardiovascular Disease | DX: I48.11 Longstanding persistent atrial fibrillation (principal) | CPT/HCPCS: 85610 ==

== ENCOUNTER → 2024-09-11 14:30 | Outpatient (BNVA) | payer MEDICARE, MEDICAID, SELFPAY | PROVIDERS: PCP Family Medicine; Visit Provider Dermatology | DX: L82.1 Other seborrheic keratosis (principal); L81.4 Other melanin hyperpigmentation; L57.8 Other skin changes due to chronic exposure to nonionizing radiation; D18.01 Hemangioma of skin and subcutaneous tissue; D69.2 Other nonthrombocytopenic purpura; S50.311A Abrasion of right elbow, initial encounter; X58.XXXA Exposure to other specified factors, initial encounter; Z08 Encounter for follow-up examination after completed treatment for malignant neoplasm; Z85.828 Personal history of other malignant neoplasm of skin; L57.0 Actinic keratosis | CPT/HCPCS: 17004; 99213 ==

== ENCOUNTER → 2024-09-23 10:14 | Outpatient (BNVA) | payer MEDICARE, MEDICAID, SELFPAY | PROVIDERS: PCP Family Medicine; Visit Provider Internal Medicine Cardiovascular Disease | DX: I48.11 Longstanding persistent atrial fibrillation (principal) | CPT/HCPCS: 85610 ==

== ENCOUNTER → 2024-09-30 10:20 | Outpatient (BNVA) | payer MEDICARE, MEDICAID, SELFPAY | PROVIDERS: PCP Family Medicine; Visit Provider Internal Medicine Cardiovascular Disease | DX: I48.11 Longstanding persistent atrial fibrillation (principal) | CPT/HCPCS: 85610 ==

== ENCOUNTER → 2024-10-14 10:32 | Outpatient (BNVA) | payer MEDICARE, MEDICAID, SELFPAY | PROVIDERS: PCP Family Medicine; Visit Provider Internal Medicine Cardiovascular Disease | DX: I48.11 Longstanding persistent atrial fibrillation (principal) | CPT/HCPCS: 85610 ==

== ENCOUNTER → 2024-11-04 10:37 | Outpatient (BNVA) | payer MEDICARE, MEDICAID, SELFPAY | PROVIDERS: PCP Family Medicine; Visit Provider Internal Medicine Cardiovascular Disease | DX: I48.11 Longstanding persistent atrial fibrillation (principal) | CPT/HCPCS: 85610 ==

== ENCOUNTER → 2024-11-11 10:38 | Outpatient (BNVA) | payer MEDICARE, SELFPAY | PROVIDERS: PCP Family Medicine; Visit Provider Internal Medicine Cardiovascular Disease | DX: I48.11 Longstanding persistent atrial fibrillation (principal) | CPT/HCPCS: 85610 ==

== ENCOUNTER → 2024-12-08 10:22 | Outpatient (BNVA) | payer MEDICARE, SELFPAY | PROVIDERS: PCP Family Medicine; Visit Provider Internal Medicine Cardiovascular Disease | DX: I48.11 Longstanding persistent atrial fibrillation (principal); I48.20 Chronic atrial fibrillation, unspecified | CPT/HCPCS: 85610 ==

== ENCOUNTER → 2024-12-16 13:32 | Outpatient (BNVA) | payer MEDICARE, SELFPAY | PROVIDERS: PCP Family Medicine; Visit Provider Dermatology | DX: L82.1 Other seborrheic keratosis (principal); L72.0 Epidermal cyst; Z08 Encounter for follow-up examination after completed treatment for malignant neoplasm; Z85.828 Personal history of other malignant neoplasm of skin; L57.0 Actinic keratosis | CPT/HCPCS: 17000; 99213 ==

== ENCOUNTER → 2024-12-22 10:10 | Outpatient (BNVA) | payer MEDICARE, SELFPAY | PROVIDERS: PCP Family Medicine; Visit Provider Internal Medicine Cardiovascular Disease | DX: I48.11 Longstanding persistent atrial fibrillation (principal) | CPT/HCPCS: 85610 ==

== ENCOUNTER → 2025-01-13 11:11 | Outpatient (BNVA) | payer MEDICARE, SELFPAY | PROVIDERS: PCP Family Medicine; Visit Provider Nurse Practitioner Family | DX: I11.0 Hypertensive heart disease with heart failure (principal); I50.22 Chronic systolic (congestive) heart failure; I48.11 Longstanding persistent atrial fibrillation; Z79.01 Long term (current) use of anticoagulants; I25.10 Atherosclerotic heart disease of native coronary artery without angina pectoris; I25.5 Ischemic cardiomyopathy; Z95.5 Presence of coronary angioplasty implant and graft; Z95.1 Presence of aortocoronary bypass graft; I10 Essential (primary) hypertension | CPT/HCPCS: 36415; 80048; 83880; 99214 ==

== ENCOUNTER 2025-01-26 10:47 | Outpatient (CLI) | payer MEDICARE, SELFPAY ==
[2025-01-26 12:25] LABS: Anion Gap 14.5 (5-19); Blood Urea Nitrogen 54 mg/dL (8-23); Calcium 8.4 mg/dL (8.5-10.5); Carbon Dioxide 29 mmol/L (22-29); Chloride 98 mmol/L (98-107); Glucose 82 mg/dL (65-115); Osmolality Calculated 298 mOsm/kg (285-295); Potassium 4.5 mmol/L (3.5-5.1); Sodium 137 mmol/L (136-145)
[2025-01-28 11:16] LABS: NT Pro B Type Natriuretic Pept 12023 pg/mL (0-450)
== END 2025-01-26 10:48 | disposition home or self-care (01) ==
PROVIDERS: Nurse Practitioner Family; PCP Family Medicine; Visit Provider Internal Medicine Cardiovascular Disease
DX: I48.11 Longstanding persistent atrial fibrillation (principal)
CPT/HCPCS: 80048; 83880

== ENCOUNTER 2025-02-13 09:56 | Outpatient (CLI) | payer MEDICARE, SELFPAY ==
[2025-02-13 11:18] LABS: NT Pro B Type Natriuretic Pept 16470 pg/mL (0-450)
[2025-02-13 11:34] LABS: INR 2.48 (0.8-1.2)
== END 2025-02-13 09:57 | disposition home or self-care (01) ==
PROVIDERS: Nurse Practitioner Family; PCP Family Medicine; Visit Provider Internal Medicine Cardiovascular Disease
DX: I48.11 Longstanding persistent atrial fibrillation (principal)
CPT/HCPCS: 36415; 83880; 85610; 99214

== ENCOUNTER → 2025-02-23 17:41 | Outpatient (BNVA) | payer MEDICARE, SELFPAY | PROVIDERS: PCP Family Medicine; Visit Provider Internal Medicine Cardiovascular Disease | DX: I48.11 Longstanding persistent atrial fibrillation (principal) | CPT/HCPCS: 85610 ==

== ENCOUNTER 2025-04-01 08:59 | Outpatient (CLI) | payer MEDICARE, SELFPAY ==
--- NOTE | 2025-04-01 12:00 | USCV_ITS ---
Oswaldo Green Age: 84 Gender: M : 1940 Exam Date: 04/01/2025 09:35 Ordering Phys: Ml Davila NP Technologist: [place] [facility] [place] sob cp BP: 110 / 60 HR: 78 Rhythm: Sinus Technical Quality: Adequate MEASUREMENTS (Male / Female) Normal Values 2D ECHO LV Diastolic Diameter PLAX 7.3 cm 4.2 - 5.9 / 3.9 - 5.3 cm IVS Diastolic Thickness 1.2 cm 0.6 - 1.0 / 0.6 - 0.9 cm IVS Systolic Thickness 1.4 cm LVPW Diastolic Thickness 1.5 cm 0.6 - 1.0 / 0.6 - 0.9 cm LVPW Systolic Thickness 1.3 cm LVOT Diameter 2.1 cm LV Ejection Fraction 2D Teich 22.8 % LV Ejection Fraction MOD 4C 24.5 % LV Ejection Fraction MOD 2C 21.1 % LV Ejection Fraction 2C AL 20.2 % LA Diameter 5.3 cm RA Systolic Volume 4C AL 276.7 ml RA Systolic Volume 4C MOD 263.1 ml LA Sys Volume AL 203.3 cm cubed LA Sys Volume Index AL 104.2 cm cubed/m squared Aorta at Sinotubular Diameter 3.0 cm M-MODE LA Ao Ratio MM 1.4 AV Cusp Separation MM 2.0 cm DOPPLER AV Peak Velocity 103.0 cm/s LVOT Peak Velocity 47.0 cm/s AV Area Cont Eq vti 2.1 cm squared AV Area Cont Eq pk 1.6 cm squared MV Area PHT 3.3 cm squared Mitral E to A Ratio 2.4 TR Peak Velocity 113.0 cm/s TR Peak Gradient 5.1 mmHg PV Peak Velocity 98.0 cm/s FINDINGS Left Ventricle Left ventricle is severely dilated. LV systolic function is severely reduced with EF of 15-20%. Severe global hypokinesis Right Ventricle RV is dilated and hypokinetic Right Atrium Severely increased right atrial size. Left Atrium Severely increased left atrial size. Mitral Valve Structurally normal mitral valve. Moderate mitral regurgitation Aortic Valve Aortic valve is thickened. No aortic valve stenosis. Mild aortic valve regurgitation. Tricuspid Valve Insufficient TR jet to calculate RVSP Pulmonic Valve Mild pulmonic regurgitation Pericardium Normal Aorta Normal in size IVC Not well visualized CONCLUSIONS Left ventricle is severely dilated LV systolic fucntion is severely reduced with EF of 15-20% RV is dilated and hypokinetic Biatrial dilation Moderate mitral regurgitation Mild aortic regurgitation Mild pulmonic regurgitation Compared to prior echocardiogram from 2023, no significant changes are seen Wilver Milligan MD (Electronically Signed) Final Date: 04 April 2025 09:33 S
== END 2025-04-01 09:00 | disposition home or self-care (01) ==
PROVIDERS: PCP Family Medicine; Visit Provider Nurse Practitioner Family
DX: R06.02 Shortness of breath (principal); R07.9 Chest pain, unspecified; R93.1 Abnormal findings on diagnostic imaging of heart and coronary circulation; I51.89 Other ill-defined heart diseases; I34.0 Nonrheumatic mitral (valve) insufficiency; I35.8 Other nonrheumatic aortic valve disorders; I35.1 Nonrheumatic aortic (valve) insufficiency; I37.1 Nonrheumatic pulmonary valve insufficiency
CPT/HCPCS: 93306

== ENCOUNTER → 2025-04-22 13:45 | Outpatient (BNVA) | payer MEDICARE, SELFPAY | PROVIDERS: PCP Family Medicine; Visit Provider Physician Assistant | DX: M16.12 Unilateral primary osteoarthritis, left hip (principal) | CPT/HCPCS: 73523; 99213 ==

== ENCOUNTER → 2025-05-05 10:59 | Outpatient (BNVA) | payer MEDICARE, SELFPAY | PROVIDERS: PCP Family Medicine; Visit Provider Internal Medicine Cardiovascular Disease | DX: I25.10 Atherosclerotic heart disease of native coronary artery without angina pectoris (principal); I11.0 Hypertensive heart disease with heart failure; I50.20 Unspecified systolic (congestive) heart failure; I48.91 Unspecified atrial fibrillation; Z79.01 Long term (current) use of anticoagulants; I42.9 Cardiomyopathy, unspecified; Z98.61 Coronary angioplasty status; Z95.1 Presence of aortocoronary bypass graft; R06.02 Shortness of breath | CPT/HCPCS: 36415; 80048; 83880; 85610; 99214 ==

== ENCOUNTER → 2025-05-18 11:38 | Outpatient (BNVA) | payer MEDICARE, SELFPAY | PROVIDERS: PCP Family Medicine; Visit Provider Dermatology | DX: L82.1 Other seborrheic keratosis (principal); D69.2 Other nonthrombocytopenic purpura; Z08 Encounter for follow-up examination after completed treatment for malignant neoplasm; Z85.828 Personal history of other malignant neoplasm of skin; L57.0 Actinic keratosis | CPT/HCPCS: 11102; 17004; 99213 ==

== ENCOUNTER → 2025-06-04 11:24 | Outpatient (BNVA) | payer MEDICARE, SELFPAY | PROVIDERS: PCP Family Medicine; Visit Provider Internal Medicine Cardiovascular Disease | DX: I48.11 Longstanding persistent atrial fibrillation (principal) | CPT/HCPCS: 85610 ==

== ENCOUNTER → 2025-06-05 10:38 | Outpatient (BNVA) | payer MEDICARE, SELFPAY | PROVIDERS: PCP Family Medicine; Visit Provider Student in an Organized Health Care Education/Training Program | DX: M16.12 Unilateral primary osteoarthritis, left hip (principal); Z71.89 Other specified counseling | CPT/HCPCS: 20610; 77002; J3301; J9999 ==

== ENCOUNTER 2025-06-22 11:50 | Outpatient (CLI) | payer MEDICARE, MEDICAID, SELFPAY ==
[2025-06-22 13:24] LABS: Anion Gap 17.2 (5-19); Blood Urea Nitrogen 63 mg/dL (8-23); Calcium 9.1 mg/dL (8.5-10.5); Carbon Dioxide 25 mmol/L (22-29); Chloride 104 mmol/L (98-107); Glucose 96 mg/dL (65-115); NT Pro B Type Natriuretic Pept 13625 pg/mL (0-450); Osmolality Calculated 310 mOsm/kg (285-295); Potassium 5.2 mmol/L (3.5-5.1); Sodium 141 mmol/L (136-145)
== END 2025-06-22 11:51 | disposition home or self-care (01) ==
LOC: LAB 11:51
PROVIDERS: PCP Family Medicine; Visit Provider Internal Medicine Cardiovascular Disease
DX: I48.91 Unspecified atrial fibrillation (principal); Z79.01 Long term (current) use of anticoagulants; I25.5 Ischemic cardiomyopathy; I11.0 Hypertensive heart disease with heart failure; I50.20 Unspecified systolic (congestive) heart failure; I25.10 Atherosclerotic heart disease of native coronary artery without angina pectoris; Z98.61 Coronary angioplasty status; Z95.1 Presence of aortocoronary bypass graft; R06.02 Shortness of breath
CPT/HCPCS: 36415; 80048; 83880; 99214

== ENCOUNTER → 2025-07-02 11:43 | Outpatient (BNVA) | payer MEDICARE, SELFPAY | PROVIDERS: PCP Family Medicine; Visit Provider Internal Medicine Cardiovascular Disease | DX: I48.11 Longstanding persistent atrial fibrillation (principal) | CPT/HCPCS: 85610 ==

== ENCOUNTER 2025-07-03 10:40 | Outpatient (CLI) | payer MEDICARE, SELFPAY ==
[2025-07-03 11:43] LABS: Anion Gap 16.1 (5-19); Blood Urea Nitrogen 58 mg/dL (8-23); Calcium 8.5 mg/dL (8.5-10.5); Carbon Dioxide 27 mmol/L (22-29); Chloride 100 mmol/L (98-107); Glucose 132 mg/dL (65-115); NT Pro B Type Natriuretic Pept 9416 pg/mL (0-450); Osmolality Calculated 306 mOsm/kg (285-295); Potassium 4.1 mmol/L (3.5-5.1); Sodium 139 mmol/L (136-145)
== END 2025-07-03 10:41 | disposition home or self-care (01) ==
LOC: LAB 10:40
PROVIDERS: PCP Family Medicine; Visit Provider Internal Medicine Cardiovascular Disease
DX: I25.10 Atherosclerotic heart disease of native coronary artery without angina pectoris (principal); I10 Essential (primary) hypertension; I48.11 Longstanding persistent atrial fibrillation
CPT/HCPCS: 36415; 80048; 83880

== ENCOUNTER → 2025-07-15 11:40 | Outpatient (BNVA) | payer MEDICARE, SELFPAY | PROVIDERS: PCP Family Medicine; Visit Provider Internal Medicine Cardiovascular Disease | DX: I48.11 Longstanding persistent atrial fibrillation (principal) | CPT/HCPCS: 85610 ==

== ENCOUNTER → 2025-07-29 10:57 | Outpatient (BNVA) | payer MEDICARE, SELFPAY | PROVIDERS: PCP Family Medicine; Visit Provider Internal Medicine Cardiovascular Disease | DX: I25.10 Atherosclerotic heart disease of native coronary artery without angina pectoris (principal); I50.23 Acute on chronic systolic (congestive) heart failure; I50.22 Chronic systolic (congestive) heart failure; I10 Essential (primary) hypertension; I48.11 Longstanding persistent atrial fibrillation | CPT/HCPCS: 36415; 80048; 85610 ==

== ENCOUNTER 2025-07-31 10:19 | Inpatient (IN) | payer MEDICARE, SELFPAY ==
[2025-07-31] VITALS (57 sets, daily range): BP systolic 67–117; BP diastolic 44–73; PULSE 81–105; RESP 14–31; TEMP 35.8–37.1; O2SAT 85–99; BMI 22.9
--- NOTE | 2025-07-31 10:22 | XRR_ITS ---
PROCEDURE INFORMATION: Exam: XR Chest Exam date and time: 07/31/2025 10:44 AM Age: 85 years old Clinical indication: Shortness of breath TECHNIQUE: Imaging protocol: Radiologic exam of the chest. Views: 1 view. COMPARISON: CR XR chest 1V portable [id number] 10/25/2023 3:11 PM FINDINGS: Lungs: Bilateral pulmonary opacities particularly in the right upper lobe and left base. Small left pleural effusion. Pleural spaces: See Lungs finding. Heart/Mediastinum: Unremarkable. No cardiomegaly. Bones/joints: Status post median sternotomy and CABG with mild cardiomegaly. XR/XR chest 1V portable [id number] IMPRESSION: Bilateral pulmonary opacities.
--- NOTE | 2025-07-31 10:37 | ECG_ITS ---
[facility] [place] Test Date: 2025-07-31 Pat Name: Oswaldo Green Department: Room: Gender: Male Necktie Stitcher: : 1940 Requested By: Radha Mercado Order Number: [id number] French MD: ARNOLD MURILLO Measurements Intervals [place] Rate: 97 P: 0 MI: 0 QRS: 254 QRSD: 195 T: 111 QT: 405 QTc: 516 Interpretive Statements ATRIAL FIBRILLATION WITH ABERRANT CONDUCTION OR VENTRICULAR PREMATURE COMPLEXES RIGHT AXIS DEVIATION [QRS AXIS > 100] INTRAVENTRICULAR CONDUCTION DELAY [130+ ms QRS DURATION] Compared to ECG 10/24/2023 17:50:35 Right-axis deviation now present Left-axis deviation no longer present Electronically Signed On 07-31-2025 18:29:53 SHERIFF DEPUTY by ARNOLD MURILLO [id number]
--- NOTE | 2025-07-31 10:49 | ED_ITS ---
HPI - SOB/Dyspnea 2 General: Chief Complaint: Shortness of Breath/Dyspnea Stated Complaint: SOB, Bright red bloody stool Time Seen by Provider: 07/31/25 10:43 History of Present Illness: HPI Narrative: 85-year-old man with a history of hess ry artery disease, congestive heart failure, atrial fibrillation, chronic anticoagulation on Coumadin, chronic hypotension, carotid artery disease who presents to the emergency room with shortness of breath and rectal bleeding over the last week or so. He is not normally on oxygen and is O2 sats are in the 80s on presentation. He says he has been bleeding for about a week as well. They checked his INR 5 days ago and it was over 4 at that point and it was held. He said he was supposed to start again today. He does report some recent cough. He has CHF and weighs himself daily and says his weight is actually down right now. No altered mental status. No fever. Blood pressure soft on presentation but he says his blood pressure always runs in the upper 80s and low 90s. Looking back in the chart this is true. Patient states that he has been very weak and fatigued. Has not noticed any fevers. Related Data Home Medications ?Medication ?Instructions ?Recorded ?Confirmed atorvastatin 80 mg tablet 40 mg PO DAILY 11/04/1907/20 fluticasone propionate 50 2 spray intranasal DAILY PRN 10/24/23 07/31/25 mcg/actuation nasal allergies spray,suspension cetirizine 10 mg tablet 10 mg PO DAILY 07/31/2507/20 hydrocodone 5 mg-acetaminophen 325 1 - 2 tab PO QID NJ N Pain 07/31/25 07/31/25 mg tablet Previous Rx's ?Medication ?Instructions ?Recorded ezetimibe 10 mg tablet 10 mg PO DAILY #90 tabs 11/19 10/14 warfarin 2.5 mg tablet See Rx Instructions .Route 0 12/23/24 .COMPLEX #60 tabs potassium chloride 20 mEq See Rx Instructions .Route 0 03/02/25 tablet,extended release .COMPLEX #90 tabs sacubitril 24 mg-valsartan 26 mg 1 tab PO BID #120 tab s 03/12/25 tablet (Entresto) clopidogrel 75 mg tablet 75 mg PO DAILY #90 tabs 01/11 furosemide 40 mg tablet 40 mg PO BID #180 tabs 07/06 Allergies Allergy/AdvReac Type Severity Reaction Status Date / Time empagliflozin (From Allergy ADR-Gastrointestinal Verified 07/31/25 10:37 Jardiance) Upset carvedilol AdvReac Intermediate fatigue Verified 07/31/25 10:37 and hypotension Review of Systems 2 Narrative: Constitutional symptoms: Negative except as documented in HPI. Skin symptoms: Negative except as documented in HPI. Eye symptoms: Negative except as documented in HPI. ENMT symptoms: Negative except as documented in HPI. Respiratory symptoms: Negative except as documented in HPI. Cardiovascular symptoms: Negative except as documented in HPI. Gastrointestinal symptoms: Negative except as documented in HPI. Genitourinary symptoms: Negative except as documented in HPI. Musculoskeletal symptoms: Negative except as documented in HPI. Neurologic symptoms: Negative except as documented in HPI. Psychiatric symptoms: Negative except as documented in HPI. Endocrine symptoms: Negative except as documented in HPI. PFSH ED 2 PFSH: Medical History (Updated 07/31/25 @ 12:31 by Radha Flowers MD) Degenerative joint disease of left hip Warfarin anticoagulation Left ventricular ejection fraction less than 20% 10/24/2023: LVEF 15 to 20% History of nonmelanoma skin cancer Cardiomyopathy ASHD (arteriosclerotic heart disease) Hyperlipidemia Hypertension Otalgia Atrial fibrillation Surgical History History of PTCA Hx of CABG Family History Father CAD (coronary artery disease) Lung disease Brother CAD (coronary artery disease) Cancer Denies family history of Diabetes Clotting disorder Dementia Chronic kidney disease (CKD) Suicide Anesthesia complication Bleeding disorder Stroke Social History Smoking and tobacco/nicotine status: never used tobacco/nicotine Alcohol intake: never Substance/Drug Use: never Physical Exam 2 Narrative: EXAM NARRATIVE: General: Alert, no acute distress. Skin: Warm, dry. Head: Normocephalic, atraumatic. Neck: Supple, trachea midline. Eye: Extraocular movements are intact. Ears, nose, mouth and throat: mucosa moist. Cardiovascular: Regular, Normal peripheral perfusion. Respiratory: Lungs are clear to auscultation, respirations are non-labored, breath sounds are equal, Symmetrical chest wall expansion. Gastrointestinal: Soft, Nontender, Non distended Musculoskeletal: Normal ROM, no deformity. Neurological: Alert and oriented, No focal neurological deficit observed. Psychiatric: Cooperative, appropriate mood & affect. Course 2 Vital Signs: Vital signs: Vital Signs Temperature 96.5 F L 07/31/25 10:24 Pulse Rate 85 07/31/25 11:45 Respiratory Rate 26 H 07/31/25 11:45 Blood Pressure 75/47 07/31/25 11:45 Pulse Oximetry 98 07/31/25 11:45 Oxygen Delivery Me thod Room Air 07/31/25 10:49 MDM - SOB/Dyspnea Medical Decision Making Medical decision making Patient's reason for coming to the emergency room: Shortness of breath, cough, rectal bleeding Social determinants: Patient is retired. is present. I reviewed the patient's medical record. 85-year-old man with a history of coronary artery disease, congestive heart failure, atrial fibrillation, chronic anticoagulation on Coumadin, chronic hypotension, carotid artery disease I reviewed the patient's current home meds Patient is on Coumadin. Alternate historians: None Differential diagnosis for patient with shortness of breath includes but is not limited to and based on the above HPI, review of systems and physical exam: Pneumonia. Bronchitis. Asthma or COPD with acute exacerbation. Acute coronary syndrome / AK. Pulmonary embolism. Anxiety. Congestive heart failure. Viral infections including influenza and Covid-19. Atrial fibrillation. Anxiety. Pleural effusion. Pneumothorax. Orders placed to evaluate differential diagnosis based on the above differential, HPI and physical exam EKG: Time 10:37 AM. Rate 97. Atrial fibrillation with controlled rate, No ST-T changes, PVCs, This was reviewed and interpreted by myself the ER physician at 10:41 AM. Repeat EKG: Time 1131. Rate 91. Atrial fibrillation with controlled rate, No ST-T changes, no ectopy, This was reviewed and interpreted by myself the ER physician at 1137. No significant changes from EKG done previously today in the emergency room. Chest x-ray: Bilateral pulmonary opacities. This was reviewed and interpreted by myself the emergency room physician. I also reviewed the radiology report. Lab Review: Laboratory results were reviewed and interpreted by myself the emergency room physician. No leukocytosis. No anemia. Worsening of renal function with a BUN/creatinine of 73 and 1.7. His creatinine is usually around 1.2 or 1.3. He does indicate some dehydration. Assessment of risk: Level of risk: High risk patient. Multiple comorbidities. Hospitalization considerations: Patient is being admitted to the ICU. Reexamination: Patient continues to require some oxygen. Consultation: I spoke with Dr. Encarnacion who is on-call for the hospital service who agrees to admission to the ICU. Assessment and plan: Pneumonia Hypoxemia Supratherapeutic INR Congestive heart failure Coumadin anticoagulation Acute on chronic renal insufficiency Dehydration ?Patient still requiring 2 to 3 L nasal cannula. - 1 L of fluid given. Patient has severe heart failure. However his pressure dropped into the 60s. His creatinine is elevated and he says his weight is down so I think he may be slightly dehydrated. -Broad-spectrum antibiotics were administered. Zyvox and meropenem -Sepsis quality measures. -Lactic acid with a reflex was ordered. -Blood cultures were ordered. ?I reevaluated the patient's volume status after sepsis fluids were given. -I discussed the patient with the hospitalist on-call who is admitting the patient. - Discussed findings and plan with patient. Answered any questions. - All laboratory values were reviewed and interpreted personally by myself, the ER physician - All imaging was reviewed and interpreted personally by myself, the ER physician. - Evaluation and treatment of this problem were appropriate in the emergency setting Critical Care: -I spent a total of 44 minutes of critical care time managing the patient, independent of any other practitioner. -The time involved in the performance of separately reportable procedures was not counted towards critical care time. Lab Data 07/31/25 10:45 07/31/25 10:45 Labs/Radiology: Radiology Impressions Chest X-Ray 07/31/25 10:22 IMPRESSION: Bilateral pulmonary opacities. Laboratory Results WBC 10.00 10^3/uL (3.29-11.43) 07/31/25 10:45 RBC 4.32 10^6/uL (3.85-5.65) 07/31/25 10:45 Hgb 11.60 g/dL (11.27-16.99) 07/31/25 10:45 Hct 36.7 % (37-53) L 07/31/25 10:45 MCV 85.0 fl (82-101) 07/31/25 10:45 MCH 26.9 pg (27-33) L 07/31/25 10:45 MCHC 31.6 g/dL (30-55) 07/31/25 10:45 RDW 20.2 % (12.1-15.1) H 07/31/25 10:45 Plt Count 203 10^3/cmm (157-399) 07/31/25 10:45 MPV 9.7 fL (7.4-10.4) 07/31/25 10:45 Neut % (Auto) 78.2 % 07/31/25 10:45 Lymph % (Auto) 11.7 % 07/31/25 10:45 [place] % (Auto) 8.0 % 07/31/25 10:45 Eos % (Auto) 1.2 % 07/31/25 10:45 Baso % (Auto) 0.3 % 07/31/25 10:45 Neut # (Auto) 7.82 10^3/uL (1.8-7.7) H 07/31/25 10:45 Lymph # (Auto) 1.2 10^3/uL (0.8-4.8) 07/31/25 10:45 [place] # (Auto) 0.8 10^3/uL (0.2-0.9) 07/31/25 10:45 Eos # (Auto) 0.1 10^3/uL (0.0-0.8) 07/31/25 10:45 Baso # (Auto) 0.0 10^3/uL (0.0-0.1) 07/31/25 10:45 Nucleated RBC % (auto) 0 % 07/31/25 10:45 Nucleated RBCs # 0.0 /100WBC 07/31/25 10:45 PT 37.70 SECONDS (12.1-14.9) H 07/31/25 10:45 INR 3.59 (0.8-1.2) H 07/31/25 10:45 APTT 52.1 SECONDS (23.9-36.7) H 07/31/25 10:45 Specimen Type Arterial 07/31/25 11:12 Sample Site Radial, right 07/31/25 11:12 ABG pH 7.46 (7.35-7.45) H 07/31/25 11:12 ABG pCO2 31.0 mmHg (35-45) L 07/31/25 11:12 ABG pO2 93.2 mmHg (80.0-100.0) 07/31/25 11:12 ABG PO2/FiO2 Ratio 332 07/31/25 11:12 ABG HCO3 22.2 mmol/L (22-26) 07/31/25 11:12 ABG O2 Saturation 97.3 07/31/25 11:12 ABG Base Excess -0.8 mmol/L (-2.0-2.0) 07/31/25 11:12 Bola Test Pos 07/31/25 11:12 A-a O2 Gradient 8.7 mmHg (5-10) 07/31/25 11:12 Hematocrit 37.2 % (42-52) L 07/31/25 11:12 Hgb O2 Saturation 95.7 % (95-100) 07/31/25 11:12 Carboxyhemoglobin 1.1 %THgb (0.4-20.1) 07/31/25 11:12 Methemoglobin 0.6 % (0.4-1.5) 07/31/25 11:12 Total Hemoglobin 12.1 g/dL (14-18) L 07/31/25 11:12 Sodium 139.0 mmol/L (131-143) 07/31/25 11:12 Potassium 4.2 mmol/L (3.5-5.0) 07/31/25 11:12 Glucose 156.0 mg/dL (70-115) H 07/31/25 11:12 Ionized Calcium 1.1 mmol/L (1.1-1.4) 07/31/25 11:12 O2 Delivery Device Nc 07/31/25 11:12 O2 Liters/Min 2.0 % 07/31/25 11:12 FiO2 28.0 % 07/31/25 11:12 Principal Systems Engineer ID [email or web address] 07/31/25 11:12 Sodium 141 mmol/L (136-145) 07/31/25 10:45 Potassium 4.6 mmol/L (3.5-5.1) 07/31/25 10:45 Chloride 102 mmol/L (98-107) 07/31/25 10:45 Carbon Dioxide 21 mmol/L (22-29) L 07/31/25 10:45 Anion Gap 22.6 (5-19) H 07/31/25 10:45 BUN 73 mg/dL (8-23) H 07/31/25 10:45 Creatinine 1.7 mg/dL (0.7-1.2) H 07/31/25 10:45 GFR Calculation Not Reportable 07/31/25 10:45 Glucose 144 mg/dL (65-115) H 07/31/25 10:45 Calculated Osmolality 316 mOsm/kg (285-295) H 07/31/25 10:45 Lactic Acid 2.3 mmol/L (0.5-2.2) H 07/31/25 10:45 Calcium 8.5 mg/dL (8.5-10.5) 07/31/25 10:45 Total Bilirubin 1.9 mg/dL (0.15-1.2) H 07/31/25 10:45 AST 120 U/L (0-40) H 07/31/25 10:45 ALT 194 U/L (0-41) H 07/31/25 10:45 Alkaline Phosphatase 179 U/L (40-130) H 07/31/25 10:45 Troponin T Baseline 65 ng/L (0-15) H 07/31/25 10:45 Troponin T 60 Minute 61.54 ng/L (0-15) H 07/31/25 11:32 Delta Troponin T -3.46 ABS# (0-10) L 07/31/25 11:32 NT-Pro-B Natriuret Pep 13153 pg/mL (0-450) H 07/31/25 10:45 Total Protein 6.7 g/dL (6.6-8.7) 07/31/25 10:45 Albumin 3.5 g/dL (3.5-5.2) 07/31/25 10:45 Globulin 3.2 g/dL (1.3-4.6) 07/31/25 10:45 All radiology interpretation(s) finalized by discharge Discharge Plan Discharge Patient Disposition: Admitted As Inpatient Admit Provider: Jeremy Encarnacion Clinical Impression: Pneumonia, Hypoxemia, Supratherapeutic INR, Rectal bleeding, Congestive heart failure, Atrial fibrillation, Acute on chronic renal insufficiency, Hypotension Condition: Stable Coding Level of Care Code ED [employer] Aircrew[employer] for Lizy Dee
--- NOTE | 2025-07-31 10:49 | PC.NURSE ---
Patients oxygen sats 85% on room air. pt placed on 2lnc. Dr Flowers notified. Pt sats improved to 95-96%.
[2025-07-31 10:55] LABS: Hematocrit 36.7 % (37-53); Hemoglobin 11.60 g/dL (11.27-16.99); Mean Corpuscular HGB Conc 31.6 g/dL (30-55); Mean Corpuscular Hemoglobin 26.9 pg (27-33); Mean Corpuscular Volume 85.0 fl (82-101); Nucleated Red Blood Cells % 0 %; Platelet Count 203 10^3/cmm (157-399); Red Blood Count 4.32 10^6/uL (3.85-5.65); White Blood Count 10.00 10^3/uL (3.29-11.43)
[2025-07-31 11:10] LABS: INR 3.59 (0.8-1.2); Prothrombin Time 37.70 SECONDS (12.1-14.9)
[2025-07-31 11:11] LABS: Partial Thromboplastin Time 52.1 SECONDS (23.9-36.7)
--- NOTE | 2025-07-31 11:12 | PC.NURSE ---
Pt hypotensive in ER with systolic in the 80s ( map at 58) Pt states that his bp is always low like this. Pts also reports this finding to be accurate. Dr Flowers made aware and after chart review with provider, pt does tend to have a lower bp.
[2025-07-31 11:15] LABS: Lactic Sepsis W/Reflex 2.3 mmol/L (0.5-2.2)
[2025-07-31 11:16] LABS: Troponin(5th) Baseline 65 ng/L (0-15)
[2025-07-31 11:23] LABS: ABG PCO2 31.0 mmHg (35-45); ABG PH Result 7.46 (7.35-7.45); Alveolar-Arterial Oxygen Gradi 8.7 mmHg (5-10); Arterial Blood Gas Hematocrit 37.2 % (42-52); Blood Gas Allen Test Pos; Blood Gas LPM 2.0 %; Blood Gas Operator Identificat glc; Blood Gas Sample Site Radial, right; Blood Gas Sample Type Arterial; Carboxyhemoglobin 1.1 %THgb (0.4-20.1); Glucose Level-ABG 156.0 mg/dL (70-115); HCO3 ABG 22.2 mmol/L (22-26); Ionized Calcium Level - ABG 1.1 mmol/L (1.1-1.4); Methemoglobin 0.6 % (0.4-1.5); Oxygen Saturation ABG 97.3; PO2 ABG 93.2 mmHg (80.0-100.0); PO2 FiO2 Ratio Arterial Blood 332; Potassium Level - ABG 4.2 mmol/L (3.5-5.0); Sodium Level - ABG 139.0 mmol/L (131-143)
--- NOTE | 2025-07-31 11:31 | ECG_ITS ---
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: : 1940 Requested By: Radha Mercado Order Number: [id number] Reading MD: ARNOLD MURILLO Measurements Intervals [place] Rate: 91 P: 0 PA: 0 QRS: -79 QRSD: 186 T: 122 QT: 425 QTc: 524 Interpretive Statements ATRIAL FIBRILLATION INTRAVENTRICULAR CONDUCTION DELAY [130+ ms QRS DURATION] Compared to ECG 07/31/2025 10:37:00 Ventricular premature complex(es) no longer present Aberrant conduction of supraventricular beat(s) no longer present Right-axis deviation no longer present Electronically Signed On 07-31-2025 18:35:24 PROFESSOR OF PHILOSOPHY by ARNOLD MURILLO [id number]
[2025-07-31] MEDS: linezolid premix 600 MG/300 ML PREMIX 300 MG IV ×2 (11:38→20:09)
[2025-07-31 11:45] LABS: Alanine Aminotransferase 194 U/L (0-41); Albumin Level 3.5 g/dL (3.5-5.2); Alkaline Phosphatase 179 U/L (40-130); Anion Gap 22.6 (5-19); Aspartate Amino Transferase 120 U/L (0-40); Blood Urea Nitrogen 73 mg/dL (8-23); Calcium 8.5 mg/dL (8.5-10.5); Carbon Dioxide 21 mmol/L (22-29); Chloride 102 mmol/L (98-107); Globulin 3.2 g/dL (1.3-4.6); Glucose 144 mg/dL (65-115); NT Pro B Type Natriuretic Pept 28706 pg/mL (0-450); Osmolality Calculated 316 mOsm/kg (285-295); Potassium 4.6 mmol/L (3.5-5.1); Sodium 141 mmol/L (136-145); Total Protein 6.7 g/dL (6.6-8.7)
[2025-07-31 12:36] LABS: Respiratory Syncytial Virus Ce NEGATIVE (Negative); SARS-CoV-2 PCR NEGATIVE (Negative)
[2025-07-31 12:38] LABS: Reflex Lactate Order REFLEX LACTIC ORDERD
--- NOTE | 2025-07-31 12:51 | PM.HP ---
Providers/Chief Complaint Admitting Physician: Jeremy Encarnacion Primary Care Provider: Nathaniel Ortiz MD Chief Complaint: SOB, Bright red bloody stool History of Present Illness Oswaldo Green is a 85 year old male with history of cardiomyopathy (last reported left ventricular ejection fraction 15?20% in March), atrial fibrillation on warfarin, prior coronary artery bypass grafting, hypertension, and hyperlipidemia presents with several days of exertional shortness of breath and approximately one week of bright red blood in the toilet bowl with bowel movements. Reports cough producing clear sputum; denies fever and chills except transient shivering with very cold beverages. Denies vomiting and diarrhea. Denies chest pain. Notes lower extremity swelling at the feet/ankles and longstanding orthopnea, unable to lie flat for years and sleeps reclined. States weight loss recently. Home blood pressures generally in the 90s systolic; reports a recent clinic BP of 112 on the 10th. Not on home oxygen. Reports challenges stabilizing INR; had been taking warfarin 2.5 mg tablets, previously one tablet daily, stopped two days ago, and was instructed by Dr. Arrieta?s office to resume at half a tablet; target INR typically 2?3. Denies NSAID use, alcohol, and smoking. No prior colonoscopy; had an upper endoscopy approximately 10?12 years ago. Cardiovascular history includes myocardial infarction at age 48, CABG, and four coronary stents (last placed ~12 years ago). Has consistently refused implantable cardioverter-defibrillator (ICD) implantation in the past. States he previously took sacubitril/valsartan (Entresto) but it was discontinued. Code status discussed and patient affirms desire for full resuscitation, including defibrillation if needed. Review of Systems Const: Reports: chills; Denies: fever(s), body aches or malaise ENMT: Denies: throat pain Card: Reports: edema; Denies: chest pain, pre-syncope or dyspnea on exertion Resp: Reports: dyspnea and productive cough; Denies: change in phlegm color or hemoptysis GI: Reports: hematochezia; Denies: abdominal pain, nausea, vomiting, diarrhea, constipation or melena : Denies: flank pain, difficulty urinating, urinary frequency or hematuria Musc: Denies: back pain, joint swelling or joint redness Skin/Breast: Denies: rash or new lesions Neuro: Denies: headache(s) or confusion Medications/Allergies Home Medications ?Medication ?Instructions ?Recorded ?Confirmed ?Last Taken ?Type atorvastatin 80 mg tablet 40 mg PO DAILY 11/04/19 07/31/25 07/31/25 History fluticasone propionate 50 2 spray intranasal DAILY PRN 10/24/23 07/31/25 Unknown History mcg/actuation nasal allergies spray,suspension ezetimibe 10 mg tablet 10 mg PO DAILY #90 tabs 12/09/24 07/31/25 07/31/25 Rx warfarin 2.5 mg tablet See Rx Instructions .Route 12/23/24 07/31/25 07/30/25 Rx .COMPLEX #60 tabs potassium chloride 20 mEq See Rx Instructions .Route 03/02/25 07/31/25 Unknown Rx tablet,extended release .COMPLEX #90 tabs sacubitril 24 mg-valsartan 26 mg 1 tab PO BID #120 tabs 03/12/25 07/31/25 07/31/25 Rx tablet (Entresto) clopidogrel 75 mg tablet 75 mg PO DAILY #90 tabs 03/24/25 07/31/25 07/31/25 Rx furosemide 40 mg tablet 40 mg PO BID #180 tabs 07/06/25 07/31/25 07/31/25 Rx cetirizine 10 mg tablet 10 mg PO DAILY 07/31/25 07/31/25 07/30/25 History hydrocodone 5 mg-acetaminophen 325 1 - 2 tab PO QID PRN Pain 07/31/25 07/31/25 07/31/25 History mg tablet Allergies Allergy/AdvReac Type Severity Reaction Status Date / Time empagliflozin (From Allergy ADR-Gastrointestinal Verified 07/31/25 10:37 Jardiance) Upset carvedilol AdvReac Intermediate fatigue Verified 07/31/25 10:37 and hypotension PFSH Acute PFSH: Medical History Degenerative joint disease of left hip Warfarin anticoagulation Left ventricular ejection fraction less than 20% 10/24/2023: LVEF 15 to 20% History of nonmelanoma skin cancer Cardiomyopathy ASHD (arteriosclerotic heart disease) Hyperlipidemia Hypertension Otalgia Atrial fibrillation Surgical History History of PTCA Hx of CABG Family History Father CAD (coronary artery disease) Lung disease Brother CAD (coronary artery disease) Cancer Denies family history of Diabetes Clotting disorder Dementia Chronic kidney disease (CKD) Suicide Anesthesia complication Bleeding disorder Stroke Social History Smoking and tobacco/nicotine status: never used tobacco/nicotine Alcohol intake: never Substance/Drug Use: never Vitals/I&O/Wt Last Vital Signs Temp 96.5 F L 07/31/25 10:24 Pulse 98 07/31/25 12:45 Resp 23 H 07/31/25 12:45 BP 95/61 07/31/25 12:45 Pulse Ox 96 07/31/25 12:45 O2 Del Method Room Air 07/31/25 10:49 07/30/25 07/31/25 07/31/25 22:59 06:59 14:59 Intake Total 1000 / 1000 Balance 1000 / 1000 Weight last 48 hrs Weight 72.484 kg Physical Exam Narrative: Accompanied by his Const: COMMON NORMALS: patient oriented x3 and alert GENERAL APPEARANCE: cooperative ORIENTATION/CONSCIOUSNESS: Yes awake HENMT: COMMON NORMALS: oropharynx normal Neck/C-Spine: COMMON NORMALS: no JVD Resp: COMMON NORMALS: normal respiratory effort and clear to auscultation bilaterally AUSCULTATION: clear to auscultation bilaterally Cardio: COMMON NORMALS: no JVD, regular rhythm, S1 normal heart sound present, S2 normal heart sound present and No murmurs present (Cardio) RHYTHM: regular rhythm HEART SOUNDS: S1 normal heart sound present and S2 normal heart sound present GI: COMMON NORMALS: Normal to inspection, nondistended, normoactive bowel sounds present, Soft to palpation and non-tender PALPATION: Yes Soft to palpation Extremity: COMMON NORMALS: no joint enlargement GENERAL: Yes edema (2+ ankle bilaterally) Neuro: COMMON NORMALS: patient oriented x3 and moves all extremities SENSORIUM/ORIENTATION: Yes alert Skin: COMMON NORMALS: no rashes or lesions noted GENERAL SKIN EXAM: no rashes or lesions noted Data 07/31/25 10:45 07/31/25 10:45 Micro: Microbiology 07/31/25 10:45 Blood Culture - Preliminary Blood SPECIMEN COLLECTED 07/31/25 10:45 Blood Culture - Preliminary Blood SPECIMEN COLLECTED A&P Assessment and plan 1. Hypotension: Blood pressures in ED ranged from 99/60 down to 71/44 with tachypnea and hypoxemia requiring 3L nasal cannula. Chronic baseline systolic blood pressures typically in the 80s?90s. Concern for shock; ICU-level monitoring planned. Reviewed vitals, CBC, INR, ABG, CMP, NT proBNP, troponin, EKG, ED provider note, discussed with ED provider. - Admit to intensive care unit for close monitoring - Monitor for shock; assess with NICOM - Administer albumin 25%, 25 g. Caution with fluid boluses due to severely depressed ejection fraction with past history of cardiomyopathy. Reassess with limited TTE. - Support blood pressure as needed; initiate vasopressor if required - Bed rest; full precautions 2. Rectal bleeding: Reports bright red blood filling toilet water over the past week. Presented with rectal bleeding while on warfarin; hemoglobin 11.6 today. Imaging with contrast deferred due to kidney injury risk. - Type and crossmatch; prepare 1 unit packed RBC in case transfusion is required - Reassess hemoglobin serially - Hold warfarin to allow INR to decrease because of gastrointestinal bleeding risk. Follow-up INR. Denies any mechanical valve. Reports target 2-3 - Considered CT with contrast to localize bleeding however deferred for now due to worsened kidney function (risk to kidneys discussed) 3. Supratherapeutic INR: INR recently 4; held warfarin. Today INR 3.59, still above target range 2?3, in the setting of active rectal bleeding. - Hold warfarin for now to allow INR to come down due to bleeding 4. Acute on chronic renal insufficiency: Acute kidney injury on chronic kidney disease : Creatinine 1.6 today (baseline ~1.4); BUN 73. Risk of further injury with contrast noted. - Reassess renal function - Monitor intake and output - Avoid nephrotoxins - Obtain kidney and bladder ultrasound- 5. Warfarin anticoagulation: INR recently 4; held warfarin. Today INR 3.59, still above target range 2?3, in the setting of active rectal bleeding. - Hold warfarin for now to allow INR to come down due to bleeding 6. Pneumonia: Possible pneumonia : Cough with clear sputum; chest X-ray with bilateral pulmonary opacities; hypoxemia on arrival. No leukocytosis; viral swabs pending. Sepsis not present at this time. - Continue IV antibiotics for possible pneumonia - Administer cefepime and lidocaine empirically - Collect sputum culture if able - Monitor for any development of sepsis - Obtain nasal swabs for influenza/COVID/RSV (pending) 7. Hypoxemia: Continue oxygen support. Monitor. Wean down as tolerated. 8. Congestive heart failure: Heart failure with reduced ejection fraction (HFrEF), EF 15?20% : Severely reduced EF with chronic orthopnea and lower extremity edema; NT-proBNP 28,706. Historically declined ICD implantation. - Hold Entresto and Lasix for now 9. Chronic atrial fibrillation: Atrial fibrillation on warfarin : Chronic atrial fibrillation anticoagulated with warfarin; current management complicated by supratherapeutic INR and GI bleeding. 10. Elevated liver enzymes: AST 120, ALT 194, alkaline phosphatase 179, total bilirubin 1.9; obtain gallbladder ultrasound. Check CK. Hold statin and ezetimibe for now. Check hepatitis panel. Plan: HTN: Hold Entresto HLD: Hold statin for now. Check CK. PDMP PDMP Reviewed: Not Reviewed Attestations Medical Necessity Statement*: Admission of over 2 midnights anticipated for assessment management of pneumonia with new hypoxia, hypotension, possible shock, lower GI bleeding, supratherapeutic INR on chronic anticoagulation, ALEXEY on CKD, and gentleman with cardiomyopathy, severely depressed EF 15-20%, atrial fibrillation, additional comorbidities. Coding Level of Care Code Critical Care >/= 30 minutes Critical care time (in minutes): 35 The high probability of a clinically significant, sudden or life threatening deterioration, as referenced in this documentation, required my full and direct attention, intervention and personal management. The critical care time shown is in addition to time spent performing any reported separately billable procedures and includes the following: [x] Data and vital sign review and interpretation [x] Patient assessment, examination and intervention [x] Medication orders and management [x] Patient/Family updates as able [x] Care Coordination and Documentation. Diagnoses Hypotension I95.9 Rectal bleeding K62.5 Supratherapeutic INR R79.1 Acute on chronic renal insufficiency N28.9; N18.9 Warfarin anticoagulation Z79.01 Pneumonia J18.9 Hypoxemia R09.02 Congestive heart failure I50.9 Chronic atrial fibrillation I48.20 Elevated liver enzymes R74.8
[2025-07-31 13:14] LABS: Lactic Acid level (Lactate) 1.3 mmol/L (0.5-2.2)
[2025-07-31] MEDS: pantoprazole 40 mg SDV IVP (16:09)
[2025-07-31] MEDS: albumin 25 G/100 ML BAG 60 G IV (16:09)
--- NOTE | 2025-07-31 16:22 | ECG_ITS ---
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: : 1940 Requested By: Radha Mercado Order Number: [id number] French MD: ARNOLD MURILLO Measurements Intervals [place] Rate: 91 P: 0 CT: 0 QRS: -77 QRSD: 190 T: 124 QT: 416 QTc: 512 Interpretive Statements ATRIAL FLUTTER/TACHYCARDIA LEFT AXIS DEVIATION [QRS AXIS < -30] INTRAVENTRICULAR CONDUCTION DELAY [130+ ms QRS DURATION] Compared to ECG 07/31/2025 11:31:13 Left-axis deviation now present Atrial fibrillation no longer present Electronically Signed On 07-31-2025 18:32:19 AUTOMATIC LOG CUT OFF SAWYER by ARNOLD MURILLO [email or web address]
[2025-07-31 17:16] LABS: MRSA PCR OZH (swab) NOT DETECTED (Negative)
[2025-07-31 17:18] LABS: Hematocrit 31.7 % (37-53); Hemoglobin 10.00 g/dL (11.27-16.99)
[2025-07-31 17:38] LABS: Troponin 5 6HR 45.57 ng/L (0-15); Troponin 5 6HR Delta -19.43 ng/L (0-12)
[2025-07-31 17:53] LABS: Hepatitis A Antibody IgM Non-Reactive (Nonreactive); Hepatitis B Surface Antigen Non-Reactive (Nonreactive)
[2025-07-31] MEDS: cefepime 1,000 mg SDV 1000 MG IVP (20:10)
[2025-07-31 21:58] LABS: Hematocrit 31.0 % (37-53); Hemoglobin 9.90 g/dL (11.27-16.99)
[2025-08-01] VITALS (32 sets, daily range): BP systolic 84–106; BP diastolic 55–70; PULSE 80–111; RESP 20–29; TEMP 36.4–37; O2SAT 93–98
[2025-08-01 03:44] LABS: Hematocrit 35.9 % (37-53); Hemoglobin 11.70 g/dL (11.27-16.99); Mean Corpuscular HGB Conc 32.6 g/dL (30-55); Mean Corpuscular Hemoglobin 27.4 pg (27-33); Mean Corpuscular Volume 84.1 fl (82-101); Nucleated Red Blood Cells % 0 %; Platelet Count 178 10^3/cmm (157-399); Red Blood Count 4.27 10^6/uL (3.85-5.65); White Blood Count 9.76 10^3/uL (3.29-11.43)
[2025-08-01 03:56] LABS: INR 3.43 (0.8-1.2); Prothrombin Time 36.40 SECONDS (12.1-14.9)
[2025-08-01 04:01] LABS: Alanine Aminotransferase 149 U/L (0-41); Albumin Level 3.4 g/dL (3.5-5.2); Alkaline Phosphatase 148 U/L (40-130); Anion Gap 16.4 (5-19); Aspartate Amino Transferase 85 U/L (0-40); Blood Urea Nitrogen 60 mg/dL (8-23); Calcium 8.3 mg/dL (8.5-10.5); Carbon Dioxide 21 mmol/L (22-29); Chloride 103 mmol/L (98-107); Globulin 3.2 g/dL (1.3-4.6); Glucose 102 mg/dL (65-115); Osmolality Calculated 299 mOsm/kg (285-295); Potassium 4.4 mmol/L (3.5-5.1); Sodium 136 mmol/L (136-145); Total Protein 6.6 g/dL (6.6-8.7)
[2025-08-01] MEDS: pantoprazole 40 mg SDV IVP ×2 (04:25→18:29)
[2025-08-01] MEDS: cefepime 1,000 mg SDV 1000 MG IVP ×2 (06:52→19:55)
[2025-08-01] MEDS: linezolid premix 600 MG/300 ML PREMIX 300 MG IV ×2 (06:53→19:54)
--- NOTE | 2025-08-01 09:14 | P.PN_ITS ---
Subjective 2 Subjective: He is feeling little bit better. Still having some cough. No chest pain. Later in the morning had a bowel movement with a tiny streak of blood. Vitals/I&O/Wt Last Vital Signs Temp 98.6 F 08/01/25 08:00 Pulse 96 08/01/25 08:00 Resp 25 H 08/01/25 08:00 BP 105/61 08/01/25 08:00 Pulse Ox 94 08/01/25 08:00 O2 Del Method Nasal Cannula 08/01/25 08:00 O2 Flow Rate 1 08/01/25 08:00 07/31/25 08/01/25 08/01/25 22:59 06:59 14:59 Intake Total 1800 / 2800 350 / 3150 450 / 450 Output Total 350 / 350 450 / 800 Balance 1450 / 2450 -100 / 2350 450 / 450 Weight last 48 hrs Weight 79.9 kg Weight 75.3 kg Weight 72.484 kg Physical Exam 2 Const: COMMON NORMALS: patient oriented x3 and alert GENERAL APPEARANCE: c ooperative ORIENTATION/CONSCIOUSNESS: Yes awake HENMT: COMMON NORMALS: oropharynx normal Neck/C-Spine: COMMON NORMALS: no JVD Resp: COMMON NORMALS: normal respiratory effort and clear to auscultation bilaterally AUSCULTATION: clear to auscultation bilaterally Cardio: COMMON NORMALS: no JVD, regular rhythm, S1 normal heart sound present, S2 normal heart sound present and No murmurs present (Cardio) RHYTHM: regular rhythm HEART SOUNDS: S1 normal heart sound present and S2 normal heart sound present GI: COMMON NORMALS: Normal to inspection, nondistended, normoactive bowel sounds present, Soft to palpation and non-tender PALPATION: Yes Soft to palpation Extremity: COMMON NORMALS: no joint enlargement GENERAL: Yes edema (2+ ankle bilaterally) Neuro: COMMON NORMALS: patient oriented x3 and moves all extremities S ENSORIUM/ORIENTATION: Yes alert Skin: COMMON NORMALS: no rashes or lesions noted GENERAL SKIN EXAM: no rashes or lesions noted Data 08/01/25 03:20 08/01/25 03:20 Micro: Microbiology 07/31/25 15:30 Legionella Urinary Antigen - Final Urine,Voided Bacterial Antigens - Final 07/31/25 10:45 Blood Culture - Preliminary Blood SPECIMEN COLLECTED 07/31/25 10:45 Blood Culture - Preliminary Blood SPECIMEN COLLECTED A&P Assessment and plan 1. Hypotension: Improved. Responded to fluid resuscitation. Levophed was ordered but did not end up requiring it. Transfer out of ICU. Continue to monitor blood pressures. Continue to hold antihypertensives. Check orthostatics. Up with assist. Discussed with nursing, supportive employment case manager. 2. Rectal bleeding: So far without further rectal bleeding. Reviewed INR, 3.43. Reviewed hemoglobin, 11.7. Reports bright red blood filling toilet water over the past week. Presented with rectal bleeding while on warfarin; hemoglobin 11.6 today. Imaging with contrast deferred due to kidney injury risk. - Type and crossmatch; prepare 1 unit packed RBC in case transfusion is required - Reassess hemoglobin serially - Hold warfarin to allow INR to decrease because of gastrointestinal bleeding risk. Follow-up INR. Denies any mechanical valve. Reports target 2-3 - Considered CT with contrast to localize bleeding however deferred for now due to worsened kidney function (risk to kidneys discussed) 3. Supratherapeutic INR: INR recently 4; held warfarin. Today still INR 3.43, still above target range 2?3, in the setting of active rectal bleeding. - Hold warfarin for now to allow INR to come down due to bleeding 4. Acute on chronic renal insufficiency: Acute kidney injury on chronic kidney disease : With improvement on review. BUN 60 creatinine at 1.3. Risk of further injury with contrast noted. - Reassess renal function - Monitor intake and output - Avoid nephrotoxins - Reviewed kidney and bladder ultrasound-no acute findings 5. Warfarin anticoagulation: INR recently 4; held warfarin. Today INR 3.43, still above target range 2?3, in the setting of active rectal bleeding. - Hold warfarin for now to allow INR to come down due to bleeding 6. Pneumonia: Possible pneumonia : Cough with clear sputum; chest X-ray with bilateral pulmonary opacities; hypoxemia on arrival. No leukocytosis; viral swabs pending. Sepsis not present at this time. - Continue IV antibiotics for possible pneumonia. - Administer cefepime and linezolid empirically. Monitor for risk of encephalopathy with cefepime, cytopenia with both, as well as C. difficile. - Collect sputum culture if able - Monitor for any development of sepsis - Reviewed nasal swabs for influenza/COVID/RSV -negative 7. Hypoxemia: Continue oxygen support. Monitor. Wean down as tolerated. 8. 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 Severely reduced EF with chronic orthopnea and lower extremity edema; NT-proBNP 28,706. Historically declined ICD implantation. - Hold Entresto and Lasix for now with soft blood pressure 9. Chronic atrial fibrillation: Atrial fibrillation on warfarin : Chronic atrial fibrillation anticoagulated with warfarin; current management complicated by supratherapeutic INR and GI bleeding. Recheck INR 10. Elevated liver enzymes: AST 120, ALT 194, alkaline phosphatase 179, total bilirubin 1.9; reviewed gallbladder ultrasound. Unremarkable. Reviewed CK. Hold statin and ezetimibe for now. Check hepatitis panel. Plan: HTN: Hold Entresto HLD: Hold statin for now. Reviewed CK. PDMP PDMP Reviewed: Not Reviewed Attestations 2 Medical Necessity Statement*: Continue admission for assessment and management of pneumonia with new hypoxia, low blood pressure, lower GI bleeding, supratherapeutic INR on chronic anticoagulation, ALEXEY on CKD, and gentleman with cardiomyopathy, severely depressed EF 15-20%, atrial fibrillation, additional comorbidities. and High MDM includes amount and/or complexity of data reviewed/ordered [ resulted lab(s)/test(s), ordered lab(s)/test(s) and other healthcare professional discussion] and described risk of complication, morbidity or mortality of management as documented Diagnoses Hypotension I95.9 Rectal bleeding K62.5 Supratherapeutic INR R79.1 Acute on chronic renal insufficiency N28.9; N18.9 Warfarin anticoagulation Z79.01 Pneumonia J18.9 Hypoxemia R09.02 Congestive heart failure I50.9 Chronic atrial fibrillation I48.20 Elevated liver enzymes R74.8
--- NOTE | 2025-08-01 11:08 | PC.NURSE ---
Report called to MIRTHA Hernández.
--- NOTE | 2025-08-01 11:44 | PC.NURSE ---
Transferred to CSU room 106 via wheelchair, tolerated well. Family at bedside.
--- NOTE | 2025-08-01 15:22 | USCV_ITS ---
Oswaldo Green Age: 85 Gender: M : 1940 Exam Date: 08/01/2025 10:06 Ordering Phys: Jeremy Encarnacion MD Technologist: Dat Avalos [place]am [place] [facility] [place] Indication: reassess EF with hypotension, history of cardiomyopathy BP: 94 / 69 HR: Rhythm: Atrial flutter Technical Quality: Adequate MEASUREMENTS (Male / Female) Normal Values 2D ECHO LV Diastolic Diameter PLAX 7.2 cm 4.2 - 5.9 / 3.9 - 5.3 cm IVS Diastolic Thickness 0.6 cm 0.6 - 1.0 / 0.6 - 0.9 cm IVS Systolic Thickness 0.6 cm LVPW Diastolic Thickness 0.8 cm 0.6 - 1.0 / 0.6 - 0.9 cm LVPW Systolic Thickness 1.1 cm LVOT Diameter 2.0 cm LV Ejection Fraction 2D Teich 10.8 % LV Ejection Fraction MOD 4C 21.4 % LV Ejection Fraction MOD 2C 20.2 % LV Ejection Fraction 2C AL 16.5 % LA Diameter 5.1 cm RA Systolic Volume 4C AL 263.8 ml RA Systolic Volume 4C MOD 274.4 ml Aorta at Sinotubular Diameter 2.1 cm IVC Diameter 2.5 cm M-MODE LA Ao Ratio MM 1.6 AV Cusp Separation MM 1.7 cm FINDINGS Left Ventricle Severely at the left ventricle. Severe global left ventricular hypokinesis with severely reduced ejection fraction of 15-20%. Normal left ventricular wall thickness. Right Ventricle Mild right ventricular enlargement. Right ventricular hypokinesis Right Atrium Severe right atrial enlargement Left Atrium Severe left atrial enlargement IA Septum Mitral Valve Aortic Valve Tricuspid Valve Pulmonic Valve Pericardium Aorta IVC CONCLUSIONS 1. Severe left ventricular enlargement. Severe left ventricular systolic function with global hypokinesis and ejection fraction of 15 to 20% 2. Mild right ventricular enlargement. Right ventricular hypokinesis 3. Severe biatrial enlargement 4. Compared to echocardiogram on April 01, 2025 there is no significant change. 5. The test was ordered as a limited study. Pietro Ward MD, FACC (Electronically Signed) Final Date: 01 August 2025 15:57 S
--- NOTE | 2025-08-01 15:34 | USR_ITS ---
PROCEDURE INFORMATION: Exam: US Abdomen Complete Exam date and time: 08/01/2025 6:44 AM Age: 85 years old Clinical indication: Abnormal findings; Abnormal lab test; Elevated liver enzymes; Additional info: Hyperbilirubinemia, liver enzyme elevation, add bladder TECHNIQUE: Imaging protocol: Real-time ultrasound of the abdomen with image documentation. Complete exam. COMPARISON: No relevant prior studies available. FINDINGS: Liver: Normal. No mass. Gallbladder: Normal. No gallstones. Borderline thickened gallbladder wall, 3 mm. Biliary ducts: Normal. No stones. No dilation. Pancreas: Obscured by bowel gas. Right kidney: Normal. No mass. No hydronephrosis. Simple cysts. Left kidney: Normal. No mass. No hydronephrosis. Simple cyst. Spleen: Mildly enlarged, 14 cm. Aorta: Normal. No aneurysm. Inferior vena cava: Normal. US/US abdomen complete* [id number] IMPRESSION: No acute findings.
--- NOTE | 2025-08-01 17:19 | PC.NURSE ---
Patient had gotten up to the bathroom, after using the bathroom patient had called to have help getting up from toilet, as he was getting up he accidentally gave him self a small skin tear on the left elbow. Nurse has been notified of the skin tear.
[2025-08-02] VITALS (9 sets, daily range): BP systolic 86–99; BP diastolic 61–74; PULSE 88–100; RESP 13–27; TEMP 36.6–36.7; O2SAT 96–99
[2025-08-02 03:00] LABS: Hematocrit 35.5 % (37-53); Hemoglobin 11.60 g/dL (11.27-16.99); Mean Corpuscular HGB Conc 32.7 g/dL (30-55); Mean Corpuscular Hemoglobin 28.2 pg (27-33); Mean Corpuscular Volume 86.2 fl (82-101); Nucleated Red Blood Cells % 0 %; Platelet Count 182 10^3/cmm (157-399); Red Blood Count 4.12 10^6/uL (3.85-5.65); White Blood Count 10.72 10^3/uL (3.29-11.43)
--- NOTE | 2025-08-02 03:01 | PC.NURSE ---
Patient had small BM with small amount of mya red blood noted.
[2025-08-02 03:18] LABS: INR 3.40 (0.8-1.2); Prothrombin Time 36.20 SECONDS (12.1-14.9)
[2025-08-02 03:25] LABS: Alanine Aminotransferase 205 U/L (0-41); Albumin Level 3.1 g/dL (3.5-5.2); Alkaline Phosphatase 149 U/L (40-130); Anion Gap 18.4 (5-19); Aspartate Amino Transferase 170 U/L (0-40); Blood Urea Nitrogen 59 mg/dL (8-23); Calcium 8.3 mg/dL (8.5-10.5); Carbon Dioxide 19 mmol/L (22-29); Chloride 103 mmol/L (98-107); Globulin 3.3 g/dL (1.3-4.6); Glucose 112 mg/dL (65-115); Osmolality Calculated 299 mOsm/kg (285-295); Potassium 4.4 mmol/L (3.5-5.1); Sodium 136 mmol/L (136-145); Total Protein 6.4 g/dL (6.6-8.7)
[2025-08-02] MEDS: pantoprazole 40 mg SDV IVP ×2 (04:01→12:33)
[2025-08-02] MEDS: linezolid premix 600 MG/300 ML PREMIX 300 MG IV ×2 (09:19→20:16)
[2025-08-02] MEDS: cefepime 1,000 mg SDV 1000 MG IVP ×2 (09:19→20:15)
--- NOTE | 2025-08-02 11:55 | PM.PN ---
Subjective Subjective: He reports overall he is feeling little bit better. He still having cough productive of small amount of sputum. Vitals/I&O/Wt Last Vital Signs Temp 97.9 F 08/02/25 07:45 Pulse 98 08/02/25 11:11 Resp 13 08/02/25 11:11 BP 99/73 08/02/25 11:11 Pulse Ox 96 08/02/25 11:11 O2 Del Method Nasal Cannula 08/02/25 04:00 O2 Flow Rate 3 08/02/25 04:00 08/01/25 08/02/25 08/02/25 22:59 06:59 14:59 Intake Total 420 / 1170 300 / 300 Output Total 350 / 525 100 / 100 Balance 420 / 995 -350 / 645 200 / 200 Weight last 48 hrs Weight 79.9 kg Weight 75.3 kg Physical Exam Const: COMMON NORMALS: patient oriented x3 and alert GENERAL APPEARANCE: cooperative ORIENTATION/CONSCIOUSNESS: Yes awake HENMT: COMMON NORMALS: oropharynx normal Neck/C-Spine: COMMON NORMALS: no JVD Resp: COMMON NORMALS: normal respiratory effort and clear to auscultation bilaterally AUSCULTATION: clear to auscultation bilaterally Cardio: COMMON NORMALS: no JVD, regular rhythm, S1 normal heart sound present, S2 normal heart sound present and No murmurs present (Cardio) RHYTHM: regular rhythm HEART SOUNDS: S1 normal heart sound present and S2 normal heart sound present GI: COMMON NORMALS: Normal to inspection, nondistended, normoactive bowel sounds present, Soft to palpation and non-tender PALPATION: Yes Soft to palpation Extremity: COMMON NORMALS: no joint enlargement GENERAL: Yes edema (2+ ankle bilaterally) Neuro: COMMON NORMALS: patient oriented x3 and moves all extremities SENSORIUM/ORIENTATION: Yes alert Skin: COMMON NORMALS: no rashes or lesions noted GENERAL SKIN EXAM: no rashes or lesions noted Data 08/02/25 02:33 08/02/25 02:33 Micro: Microbiology 07/31/25 17:35 Gram Stain - Final Sputum - Expectorated Sputum Sputum Culture - Preliminary 07/31/25 10:45 Blood Culture - Preliminary Blood NEGATIVE TO DATE 07/31/25 10:45 Blood Culture - Preliminary Blood NEGATIVE TO DATE 07/31/25 15:30 Legionella Urinary Antigen - Final Urine,Voided Bacterial Antigens - Final A&P Assessment and plan 1. Hypotension: Improved. Responded to fluid resuscitation. Levophed was ordered but did not end up requiring it. Transfer out of ICU. Continue to monitor blood pressures. Continue to hold antihypertensives. Check orthostatics. Up with assist. Discussed with nursing, residential case manager. 2. Congestive heart failure: Possible acute systolic and diastolic congestive heart failure. New hypoxia. Peripheral edema. Discussed with him cautious trial of 20 mg IV push Lasix, monitoring for hypotension. Blood pressure. Reassess plan status. With low blood pressures has not been able to tolerate his Entresto. Discussed with fish egg packer, appreciate consultation with regards to consideration of FLESHING MACHINE OPERATOR-D in the setting of low EF, A-fib, intraventricular conduction delay. He states he would be willing to consider this. 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 Pneumonia: Continues to have some productive cough, otherwise afebrile, without leukocytosis. Continues on empiric antibiotic currently. Reviewed blood culture, negative, sputum culture reviewed, few normal yessy growing on day 1. Will add flutter valve to assist expectoration. Reassess. Consider de-escalation of antibiotic. Continue to wean down oxygen support as tolerating. Not normally on oxygen. He requiring 3 L. Sepsis not present at this time. - Continue IV antibiotics for possible pneumonia. - Administer cefepime and linezolid empirically. Monitor for risk of encephalopathy with cefepime, cytopenia with both, as well as C. difficile. - Collect sputum culture if able - Monitor for any development of sepsis - Reviewed nasal swabs for influenza/COVID/RSV -negative 4. Rectal bleeding: So far without further rectal bleeding. Reviewed INR, 3.43. Reviewed hemoglobin, 11.7. Reports bright red blood filling toilet water over the past week. Presented with rectal bleeding while on warfarin; hemoglobin 11.6 today. Imaging with contrast deferred due to kidney injury risk. - Type and crossmatch; prepare 1 unit packed RBC in case transfusion is required - Reassess hemoglobin serially - Hold warfarin to allow INR to decrease because of gastrointestinal bleeding risk. Follow-up INR. Denies any mechanical valve. Reports target 2-3 - Considered CT with contrast to localize bleeding however deferred for now due to worsened kidney function (risk to kidneys discussed) 5. Supratherapeutic INR: Gradually improving supratherapeutic INR, reviewed today, down to 3.4. Continue to hold warfarin. Continue to monitor for further bleeding, reassess blood counts. still above target range 2?3, in the setting of active rectal bleeding. - Hold warfarin for now to allow INR to come down due to bleeding 6. Acute on chronic renal insufficiency: Renal function did show some mild improvement from ALEXEY. Creatinine down to 1.3. Acute kidney injury on chronic kidney disease : With improvement on review. BUN 60 creatinine at 1.3. Risk of further injury with contrast noted. - Reassess renal function - Monitor intake and output - Avoid nephrotoxins - Reviewed kidney and bladder ultrasound-no acute findings 7. Warfarin anticoagulation: INR recently 4; held warfarin. Today INR 3.43, still above target range 2?3, in the setting of active rectal bleeding. - Hold warfarin for now to allow INR to come down due to bleeding 8. Hypoxemia: Continue oxygen support. Monitor. Wean down as tolerated. 9. Elevated liver enzymes: Some worsening transaminitis. Possibly secondary to congestive hepatopathy, acute congestive heart failure. Trial of Lasix as above. Transaminitis and hyperbilirubinemia. Reviewed gallbladder ultrasound. Unremarkable. Reviewed CK. Hold statin and ezetimibe for now. Reviewed hepatitis panel. 10. Chronic atrial fibrillation: Atrial fibrillation on warfarin : Chronic atrial fibrillation anticoagulated with warfarin; current management complicated by supratherapeutic INR and GI bleeding. Recheck INR Low ventricular response, not normally on rate control. Plan: HTN: Hold Entresto HLD: Hold statin for now. Reviewed CK. Unremarkable. PDMP PDMP Reviewed: Not Reviewed Attestations Medical Necessity Statement*: Continue admission for assessment of management of new hypoxia with acute systolic and diastolic congestive heart failure with known severe cardiomyopathy, EF 15 to 20%, consideration of FLESHING MACHINE OPERATOR-D, cautious diuresis with risk of hypotension, treatment of suspected pneumonia, and gentleman with additional comorbidities as above. and High MDM includes amount and/or complexity of data reviewed/ordered [ resulted lab(s)/test(s), ordered lab(s)/test(s) and other healthcare professional discussion] and described risk of complication, morbidity or mortality of management as documented Diagnoses Hypotension I95.9 Congestive heart failure I50.9 Pneumonia J18.9 Rectal bleeding K62.5 Supratherapeutic INR R79.1 Acute on chronic renal insufficiency N28.9; N18.9 Warfarin anticoagulation Z79.01 Hypoxemia R09.02 Elevated liver enzymes R74.8 Chronic atrial fibrillation I48.20
[2025-08-02] MEDS: FUROsemide 10 mg/mL SDV 2mL 20 MG IVP (12:33)
--- NOTE | 2025-08-02 15:39 | PM.CONSULT ---
Providers/Reason For Consult Consulting Physician/Specialty*: Pietro Ward MD Reason for Consult*: CHF Requesting Physician: Catherine Encarnacion MD Attending Physician: Jeremy Encarnacion Primary Care Provider: Nathaniel Ortiz MD History of Present Illness History of Present Illness Oswaldo Green is a 85 year old male who is a cardiac patient of Dr. Arrieta. 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 He presented to the ER with SOB, fatigue and bright red blood per rectum. INR was supratherapeutic at 4.5. His Pox was in the 80s and is usually normal. His weight was down per the patient. He was given 1 L IVF and his Hgb decreased to 9.9. Since has incresaed to 11.6. Chest xray was consistent with pneumonia and he was started on Abx. Cr was 1.7, mildly incresaed from baseline of 1.4. today he seemed mildly volume overloaded and was given Lasix 20mg IV x 1. Cardiology was asked to see patient today to further consider cardiac resynchronization therapy. Patient still short of breath but shows some improvement compared to admission. Patient denies chest pain. He also denies palpitations. Limited echo 08/01/25: 1. Severe left ventricular enlargement. Severe left ventricular systolic function with global hypokinesis and ejection fraction of 15 to 20% 2. Mild right ventricular enlargement. Right ventricular hypokinesis 3. Severe biatrial enlargement 4. Compared to echocardiogram on April 01, 2025 there is no significant change. 5. The test was ordered as a limited study. EKG 07/31/2025: Atrial fibrillation with heart rate of 91 bpm, nonspecific ventricular conduction delay but appears more of a left bundle branch type pattern than a right bundle branch pattern, severe prolongation of the QRS 190 ms Medications/Allergies Home Medications ?Medication ?Instructions ?Recorded ?Confirmed ?Last Taken ?Type atorvastatin 80 mg tablet 40 mg PO DAILY 11/04/19 07/31/25 07/31/25 History fluticasone propionate 50 2 spray intranasal DAILY PRN 10/24/23 07/31/25 Unknown History mcg/actuation nasal allergies spray,suspension ezetimibe 10 mg tablet 10 mg PO DAILY #90 tabs 12/09/24 07/31/25 07/31/25 Rx warfarin 2.5 mg tablet See Rx Instructions .Route 12/23/24 07/31/25 07/30/25 Rx .COMPLEX #60 tabs potassium chloride 20 mEq See Rx Instructions .Route 03/02/25 07/31/25 Unknown Rx tablet,extended release .COMPLEX #90 tabs sacubitril 24 mg-valsartan 26 mg 1 tab PO BID #120 tabs 03/12/25 07/31/25 07/31/25 Rx tablet (Entresto) clopidogrel 75 mg tablet 75 mg PO DAILY #90 tabs 03/24/25 07/31/25 07/31/25 Rx furosemide 40 mg tablet 40 mg PO BID #180 tabs 07/06/25 07/31/25 07/31/25 Rx cetirizine 10 mg tablet 10 mg PO DAILY 07/31/25 07/31/25 07/30/25 History hydrocodone 5 mg-acetaminophen 325 1 - 2 tab PO QID PRN Pain 07/31/25 07/31/25 07/31/25 History mg tablet Allergies Allergy/AdvReac Type Severity Reaction Status Date / Time empagliflozin (From Allergy ADR-Gastrointestinal Verified 07/31/25 10:37 Jardiance) Upset carvedilol AdvReac Intermediate fatigue Verified 07/31/25 10:37 and hypotension Current Medications Generic Name Dose Route Start Last Admin Trade Name Freq PRN Reason Stop Dose Admin Cefepime HCl 1,000 mg 07/31/25 19:30 08/02/25 09:19 Cefepime 1,000 Mg Sdv IVP 1,000 mg Q12H FANNIE Administration Protocol Linezolid 600 mg in 300 mls @ 300 mls/hr 07/31/25 19:30 08/02/25 10:23 Zyvox Premix IV Infused Q12H FANNIE Infusion Protocol Pantoprazole Sodium 40 mg 07/31/25 15:15 08/02/25 12:33 Pantoprazole 40 Mg Sdv IVP 40 mg Q12H FANNIE Administration PFSH Acute PFSH: Medical History (Updated 08/02/25 @ 15:54 by Pietro Ward MD) Degenerative joint disease of left hip Warfarin anticoagulation Left ventricular ejection fraction less than 20% 10/24/2023: LVEF 15 to 20% History of nonmelanoma skin cancer Cardiomyopathy ASHD (arteriosclerotic heart disease) Hyperlipidemia Hypertension Otalgia Atrial fibrillation Surgical History (Updated 08/02/25 @ 15:51 by Pietro Ward MD) History of PTCA Hx of CABG Family History Father CAD (coronary artery disease) Lung disease Brother CAD (coronary artery disease) Cancer Denies family history of Diabetes Clotting disorder Dementia Chronic kidney disease (CKD) Suicide Anesthesia complication Bleeding disorder Stroke Social History Smoking and tobacco/nicotine status: never used tobacco/nicotine Alcohol intake: never Substance/Drug Use: never Vitals/I&O/Wt Last Vital Signs Temp 97.9 F 08/02/25 07:45 Pulse 91 08/02/25 14:00 Resp 13 08/02/25 11:11 BP 99/73 08/02/25 11:11 Pulse Ox 96 08/02/25 11:11 O2 Del Method Nasal Cannula 08/02/25 04:00 O2 Flow Rate 3 08/02/25 04:00 08/02/25 08/02/25 08/02/25 06:59 14:59 22:59 Intake Total 540 / 540 Output Total 350 / 525 100 / 100 Balance -350 / 645 440 / 440 Weight last 48 hrs Weight 176 lb 2.389 oz Physical Exam Narrative: General: In no acute distress Neck: No jugular venous distention or carotid bruits Heart: irreg irreg Lungs: CTA Extremities: 1+ BLE edema Neuro: Alert and oriented x 3 Data 08/02/25 02:33 08/02/25 02:33 Micro: Microbiology 07/31/25 17:35 Gram Stain - Final Sputum - Expectorated Sputum Sputum Culture - Preliminary 07/31/25 10:45 Blood Culture - Preliminary Blood NEGATIVE TO DATE 07/31/25 10:45 Blood Culture - Preliminary Blood NEGATIVE TO DATE A&P Assessment and plan 1. Elevated liver enzymes: 2. Hypotension: 3. Acute on chronic renal insufficiency: 4. Atrial fibrillation: 5. Rectal bleedin. Supratherapeutic INR: 7. Left ventricular ejection fraction less than 20%: 8. Systolic congestive heart failure: 9. Hx of CAB. Pneumonia: 11. Acute hypoxemic respiratory failure: Plan: - Patient has multiple serious conditions going on right now including rectal bleeding, pneumonia, acute hypoxic resp failure, mild owen, hypotension in addition to chronic severely reduced LV function with EF 15-20%. - Still requiring 3L oxygen - Agree with the lasix 20mg IV x 1 today - would like to slow the ventricular response to the afib for better heart filling that could help with the hypotension, so will start digoxin 0.25mg x 1 now and then 0.125mg daily starting in am. Check dig level sunday am. - once rectal bleeding resolved, would use Eliquis 2.5mg bid and not coumadin since more stable agent - Although the IVCD is not a classsic LBBB pattern it looks closer to a LBBB than a RBBB and QRS is severely prolonged at 190 msec making VACUUM COOKER OPERATOR more likely to work. I am not sure patient wants a defibrillator but is interested in VACUUM COOKER OPERATOR- P if insurance will cover cost and I do think he is a candidate for this. Will help arrange officd consult with EP as outpatient. - start midodrine 2.5mg tid for hypotension. - Hold Entresto until BP consistently >90/60 and Cr stable. Would start at reduced dose of 24/26mg 1/2 tab bid PDMP PDMP Reviewed: Not Reviewed Coding Level of Care Code 48773 Diagnoses Elevated liver enzymes R74.8 Hypotension I95.9 Acute on chronic renal insufficiency N28.9; N18.9 Atrial fibrillation I48.91 Rectal bleeding K62.5 Supratherapeutic INR R79.1 Left ventricular ejection fraction less than 20% R93.1 Systolic congestive heart failure I50.20 Hx of CABG Z95.1 Pneumonia J18.9 Acute hypoxemic respiratory failure J96.01
[2025-08-03] VITALS (9 sets, daily range): BP systolic 99–103; BP diastolic 53–70; PULSE 85–96; RESP 16–27; TEMP 36.5–36.8; O2SAT 90–96
[2025-08-03 03:42] LABS: Hematocrit 35.3 % (37-53); Hemoglobin 11.40 g/dL (11.27-16.99); Mean Corpuscular HGB Conc 32.3 g/dL (30-55); Mean Corpuscular Hemoglobin 27.7 pg (27-33); Mean Corpuscular Volume 85.7 fl (82-101); Nucleated Red Blood Cells % 0 %; Platelet Count 189 10^3/cmm (157-399); Red Blood Count 4.12 10^6/uL (3.85-5.65); White Blood Count 9.68 10^3/uL (3.29-11.43)
[2025-08-03] MEDS: pantoprazole 40 mg SDV IVP ×2 (04:06→16:40)
[2025-08-03 04:20] LABS: Alanine Aminotransferase 383 U/L (0-41); Albumin Level 3.2 g/dL (3.5-5.2); Alkaline Phosphatase 178 U/L (40-130); Anion Gap 15.4 (5-19); Aspartate Amino Transferase 348 U/L (0-40); Blood Urea Nitrogen 60 mg/dL (8-23); Calcium 8.6 mg/dL (8.5-10.5); Carbon Dioxide 24 mmol/L (22-29); Chloride 104 mmol/L (98-107); Globulin 3.3 g/dL (1.3-4.6); Glucose 113 mg/dL (65-115); Osmolality Calculated 306 mOsm/kg (285-295); Potassium 4.4 mmol/L (3.5-5.1); Sodium 139 mmol/L (136-145); Total Protein 6.5 g/dL (6.6-8.7)
[2025-08-03 04:31] LABS: INR 3.16 (0.8-1.2); Prothrombin Time 34.20 SECONDS (12.1-14.9)
[2025-08-03] MEDS: linezolid premix 600 MG/300 ML PREMIX 300 MG IV ×2 (09:00→20:51)
[2025-08-03] MEDS: cefepime 1,000 mg SDV 1000 MG IVP (09:00)
--- NOTE | 2025-08-03 10:47 | P.PN_ITS ---
<Statement entered by Pietro Ward MD - 08/03/25 17:28> Patient was evaluated and cared for in conjunction with an advanced practice practitioner. I personally reviewed the chart and all pertinent data. I discussed the patient in detail with the advanced practice practitioner. Please see their note for complete assessment and agreed upon plan of care for the patient. Subjective 2 Subjective: Patient states he is doing better today. Heart rate is better controlled but still in the 80s to 90s. Currently on digoxin 125 mcg. Blood pressure has been soft currently getting midodrine 2.5 3 times daily. Vitals/I&O/Wt Last Vital Signs Temp 98.2 F 08/03/25 07:43 Pulse 90 08/03/25 07:43 Resp 23 H 08/03/25 07:43 BP 103/59 08/03/25 07:43 Pulse Ox 93 08/03/25 07:43 O2 Del Method Nasal Cannula 08/03/25 04:00 O2 Flow Rate 3 08/02/25 04:00 08/02/25 08/03/25 08/03/25 22:59 06:59 14:59 Intake Total 540 / 1080 900 / 900 Output Total 350 / 450 275 / 725 Balance 190 / 630 -275 / 355 900 / 900 Physical Exam 2 Narrative: General: No apparent distress Muskuloskeletal: Full ROM Respiratory: Normal respiratory effort, bilateral lower lobes coarse crackles, no use of accessory muscles Cardio: No JVD, regular rate, regular rhythm, S1 S2 normal, no murmurs, peripheral pulses 2+ radial palpated bilaterally GI: Normal to inspection, nondistended Extremities: Full ROM, normal, normal capillary refill, no cyanosis, 2+ edema bilateral lower extremities Neuro: Alert and oriented x4 Psych: Affect normal, denies suicidal ideation, mental status grossly normal Skin: No rashes or lesions noted, no wounds Data 08/03/25 02:28 08/03/25 02:28 Micro: Microbiology 07/31/25 17:35 Gram Stain - Final Sputum - Expectorated Sputum Sputum Culture - Preliminary A&P Assessment and plan 1. Elevated liver enzymes: 2. Hypotension: 3. Acute on chronic renal insufficiency: 4. Atrial fibrillation: 5. Rectal bleedin. Supratherapeutic INR: 7. Left ventricular ejection fraction less than 20%: 8. Systolic congestive heart failure: 9. Hx of CAB. Pneumonia: 11. Acute hypoxemic respiratory failure: Plan: Patient states he is doing better this AM. Still requiring O2. crackles in the lung. Continue Digoxin 125 mcg daily for rate control. Recheck Dig. level in the AM. will give lasix 20 mg now increase midodrine to 5 TID. Discussed with patient getting referral to EP. Patient agrees and would like to be set up for this. Will need to send referral to [facility] EP on outpatient basis. PDMP PDMP Reviewed: Not Reviewed Attestations 2 Medical Necessity Statement*: deferred to ptimary Coding Level of Care Code Acute Code for Chg Fwd Diagnoses Elevated liver enzymes R74.8 Hypotension I95.9 Acute on chronic renal insufficiency N28.9; N18.9 Atrial fibrillation I48.91 Rectal bleeding K62.5 Supratherapeutic INR R79.1 Left ventricular ejection fraction less than 20% R93.1 Systolic congestive heart failure I50.20 Hx of CABG Z95.1 Pneumonia J18.9 Acute hypoxemic respiratory failure J96.01
--- NOTE | 2025-08-03 10:59 | PC.SOCIAL ---
IMM Updated Updated pt on IMM. No questions voiced. Provided pt a copy. Initialed, dated, & timed a copy & placed in chart.
--- NOTE | 2025-08-03 15:45 | PC.NURSE ---
Notified physician Pt is more short of breath at rest and wheezing heard. his HR ranges from 100s to 110s, afib upon exertion and low 105s at rest. Suggested if we need some diurese. Dr will put orders. Add note: 1929 IVP 20 mg :asix one time given as ordered.
--- NOTE | 2025-08-03 16:00 | PM.PN ---
Subjective Subjective: He reports that he is coughing, states that his phlegm is loosening up and he is able to cough up more now. He otherwise denies chest pain or pressure. Blood pressure has been soft, but without worsening with trial of diuretic yesterday. Discussed with him consideration of further diuretic today. Vitals/I&O/Wt Last Vital Signs Temp 98.2 F 08/03/25 07:43 Pulse 85 08/03/25 11:25 Resp 16 08/03/25 11:25 BP 99/53 08/03/25 11:25 Pulse Ox 92 08/03/25 11:25 O2 Del Method Nasal Cannula 08/03/25 04:00 O2 Flow Rate 3 08/02/25 04:00 08/03/25 08/03/25 08/03/25 06:59 14:59 22:59 Intake Total 1190 / 1190 Output Total 275 / 725 180 / 180 Balance -275 / 355 1010 / 1010 Physical Exam Narrative: Accompanied by his Const: COMMON NORMALS: patient oriented x3 and alert GENERAL APPEARANCE: cooperative ORIENTATION/CONSCIOUSNESS: Yes awake HENMT: COMMON NORMALS: oropharynx normal Neck/C-Spine: COMMON NORMALS: no JVD Resp: COMMON NORMALS: normal respiratory effort and clear to auscultation bilaterally AUSCULTATION: clear to auscultation bilaterally Cardio: COMMON NORMALS: no JVD, regular rhythm, S1 normal heart sound present, S2 normal heart sound present and No murmurs present (Cardio) RHYTHM: regular rhythm HEART SOUNDS: S1 normal heart sound present and S2 normal heart sound present GI: COMMON NORMALS: Normal to inspection, nondistended, normoactive bowel sounds present, Soft to palpation and non-tender PALPATION: Yes Soft to palpation Extremity: COMMON NORMALS: no joint enlargement GENERAL: Yes edema (2+ ankle bilaterally) Neuro: COMMON NORMALS: patient oriented x3 and moves all extremities SENSORIUM/ORIENTATION: Yes alert Skin: COMMON NORMALS: no rashes or lesions noted GENERAL SKIN EXAM: no rashes or lesions noted Data 08/03/25 02:28 08/03/25 02:28 Micro: Microbiology 07/31/25 17:35 Gram Stain - Final Sputum - Expectorated Sputum Sputum Culture - Preliminary A&P Assessment and plan 1. Hypotension: Improved. Responded to fluid resuscitation. Levophed was ordered but did not end up requiring it. Transfer out of ICU. Continue to monitor blood pressures. Continue to hold antihypertensives. Check orthostatics. Up with assist. Discussed with nursing, dependency case manager. 2. Congestive heart failure: Possible acute systolic and diastolic congestive heart failure. Persistent hypoxia. Peripheral edema. Cautious 20 mg IV push of Lasix. Monitor pressures with risk of hypotension, monitor renal function with risk of ALEXEY. With low blood pressures has not been able to tolerate his Entresto. Discussed with acquisition analyst, appreciate consultation with regards to consideration of MOLD CUTTING MACHINE OPERATOR-D in the setting of low EF, A-fib, intraventricular conduction delay. He states he would be willing to consider this. 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 Pneumonia: She is bring up some more secretions, but still having trouble with that. Flutter valve is helping him. Will add Mucinex. Noted some wheezing today, however, discussed with him with the breathing treatment at risk of worsening tachycardia and decompensation of CHF. Add budesonide. Wall continues to have some productive cough, otherwise afebrile, without leukocytosis. Continues on empiric antibiotic currently. Reviewed blood culture, negative, sputum culture reviewed, few normal yessy growing on day 1. Continue to wean down oxygen support as tolerating. Not normally on oxygen. He requiring 3 L. Sepsis not present at this time. - Continue IV antibiotics for possible pneumonia. - Administer to the hospital for 1 day and linezolid empirically. Monitor for risk of encephalopathy with cefepime, cytopenia with both, as well as C. difficile. - Collect sputum culture if able - Monitor for any development of sepsis - Reviewed nasal swabs for influenza/COVID/RSV -negative 4. Rectal bleeding: So far hemoglobin stable. Without further reported hematochezia. INR is coming down. Trial of resuming Plavix. Reports bright red blood filling toilet water over the past week. Presented with rectal bleeding while on warfarin - Hold warfarin to allow INR to decrease because of gastrointestinal bleeding risk. Follow-up INR. Denies any mechanical valve. Reports target 2-3 - Considered CT with contrast to localize bleeding however deferred for now due to worsened kidney function (risk to kidneys discussed) 5. Supratherapeutic INR: Gradually improving supratherapeutic INR, reviewed today, down to 3.16. Continue to hold warfarin. Continue to monitor for further bleeding, reassess blood counts. Still above target range 2?3, in the setting of active rectal bleeding. - Hold warfarin for now to allow INR to come down due to bleeding 6. Acute on chronic renal insufficiency: Renal function did show some mild improvement from ALEXEY. Creatinine down to 1.3. Acute kidney injury on chronic kidney disease : With improvement on review. BUN 60 creatinine at 1.3. Risk of further injury with contrast noted. - Reassess renal function - Monitor intake and output - Avoid nephrotoxins - Reviewed kidney and bladder ultrasound-no acute findings 7. Warfarin anticoagulation: INR recently 4; held warfarin. T target range 2?3, in the setting of active rectal bleeding. - Hold warfarin for now to allow INR to come down due to bleeding 8. Hypoxemia: Continue oxygen support. Monitor. Wean down as tolerated. 9. Elevated liver enzymes: Stop cefepime. Changed to ceftriaxone. Some worsening transaminitis. Possibly secondary to congestive hepatopathy, acute congestive heart failure. Trial of Lasix as above. Transaminitis and hyperbilirubinemia. Reviewed gallbladder ultrasound. Unremarkable. Reviewed CK. Hold statin and ezetimibe for now. Reviewed hepatitis panel. 10. Chronic atrial fibrillation: Atrial fibrillation on warfarin : Chronic atrial fibrillation anticoagulated with warfarin; current management complicated by supratherapeutic INR and GI bleeding. Recheck INR Low ventricular response, not normally on rate control. Plan: HTN: Hold Entresto HLD: Hold statin for now. Reviewed CK. Unremarkable. PDMP PDMP Reviewed: Not Reviewed Attestations Medical Necessity Statement*: Continue admission for assessment of management of new hypoxia with acute systolic and diastolic congestive heart failure with known severe cardiomyopathy, EF 15 to 20%, consideration of MOLD CUTTING MACHINE OPERATOR-D, cautious diuresis with risk of hypotension, treatment of suspected pneumonia, and gentleman with additional comorbidities as above. and High MDM includes amount and/or complexity of data reviewed/ordered [ resulted lab(s)/test(s), ordered lab(s)/test(s) and other healthcare professional discussion] and described risk of complication, morbidity or mortality of management as documented Diagnoses Hypotension I95.9 Congestive heart failure I50.9 Pneumonia J18.9 Rectal bleeding K62.5 Supratherapeutic INR R79.1 Acute on chronic renal insufficiency N28.9; N18.9 Warfarin anticoagulation Z79.01 Hypoxemia R09.02 Elevated liver enzymes R74.8 Chronic atrial fibrillation I48.20
[2025-08-03] MEDS: FUROsemide 10 mg/mL SDV 2mL 20 MG IVP (19:26)
[2025-08-03] MEDS: cefTRIAXone 1,000 mg SDV 1000 MG IVP (20:51)
[2025-08-04] VITALS (10 sets, daily range): BP systolic 88–103; BP diastolic 56–73; PULSE 78–100; RESP 18–29; TEMP 36.4–36.8; O2SAT 83–97
[2025-08-04] MEDS: pantoprazole 40 mg SDV IVP ×2 (04:41→18:11)
[2025-08-04 08:15] LABS: Hematocrit 36.3 % (37-53); Hemoglobin 11.50 g/dL (11.27-16.99); Mean Corpuscular HGB Conc 31.7 g/dL (30-55); Mean Corpuscular Hemoglobin 26.9 pg (27-33); Mean Corpuscular Volume 84.8 fl (82-101); Nucleated Red Blood Cells % 0 %; Platelet Count 201 10^3/cmm (157-399); Red Blood Count 4.28 10^6/uL (3.85-5.65); White Blood Count 9.95 10^3/uL (3.29-11.43)
[2025-08-04] MEDS: linezolid premix 600 MG/300 ML PREMIX 300 MG IV ×2 (08:24→21:52)
[2025-08-04 08:37] LABS: Digoxin 0.9 ng/mL (0.6-1.2)
[2025-08-04 08:41] LABS: Alanine Aminotransferase 304 U/L (0-41); Albumin Level 3.1 g/dL (3.5-5.2); Alkaline Phosphatase 181 U/L (40-130); Anion Gap 17.6 (5-19); Aspartate Amino Transferase 137 U/L (0-40); Blood Urea Nitrogen 58 mg/dL (8-23); Calcium 8.1 mg/dL (8.5-10.5); Carbon Dioxide 21 mmol/L (22-29); Chloride 105 mmol/L (98-107); Globulin 2.7 g/dL (1.3-4.6); Glucose 90 mg/dL (65-115); Osmolality Calculated 304 mOsm/kg (285-295); Potassium 4.6 mmol/L (3.5-5.1); Sodium 139 mmol/L (136-145); Total Protein 5.8 g/dL (6.6-8.7)
[2025-08-04 09:34] LABS: INR 2.27 (0.8-1.2); Prothrombin Time 26.40 SECONDS (12.1-14.9)
--- NOTE | 2025-08-04 10:59 | P.PN_ITS ---
<Statement entered by Wilver Milligan M.D - 08/13/25 10:41> Patient was cared for in conjunction with an advanced practice practitioner.? I reviewed the chart and all pertinent data including imaging, telemetry, and laboratory results.? I discussed the patient in detail with the advanced practice practitioner.? Please see? their documentation for progress note, testing results and agreed upon plan of care for the patient. Subjective 2 Subjective: Patient doing okay today. He states he did get up yesterday and is not getting around as good as he normally does. Overall he is stable. Still requiring oxygen 97% 3 L nasal cannula. Vitals are stable. Vitals/I&O/Wt Last Vital Signs Temp 97.9 F 08/04/25 07:21 Pulse 80 08/04/25 08:00 Resp 18 08/04/25 08:00 BP 100/56 08/04/25 07:21 Pulse Ox 97 08/04/25 08:00 O2 Del Method Nasal Cannula 08/04/25 08:00 O2 Flow Rate 3 08/04/25 08:00 08/03/25 08/04/25 08/04/25 22:59 06:59 14:59 Intake Total 360 / 1550 300 / 1850 777 / 777 Output Total 300 / 580 400 / 980 200 / 200 Balance 60 / 970 -100 / 870 577 / 577 Weight last 48 hrs Weight 179 lb 10.828 oz Physical Exam 2 Narrative: General: No apparent distress Muskuloskeletal: Full ROM Respiratory: Normal respiratory effort, bilateral lower lobes coarse crackles, no use of accessory muscles Cardio: No JVD, regular rate, regular rhythm, S1 S2 normal, no murmurs, peripheral pulses 2+ radial palpated bilaterally GI: Normal to inspection, nondistended Extremities: Full ROM, normal, normal capillary refill, no cyanosis, 2+ edema bilateral lower extremities Neuro: Alert and oriented x4 Psych: Affect normal, denies suicidal ideation, mental status grossly normal Skin: No rashes or lesions noted, no wounds Data 08/04/25 07:53 08/04/25 07:53 Micro: Microbiology 07/31/25 17:35 Gram Stain - Final Sputum - Expectorated Sputum Sputum Culture - Final A&P Assessment and plan 1. Elevated liver enzymes: 2. Hypotension: 3. Acute on chronic renal insufficiency: 4. Atrial fibrillation: 5. Rectal bleedin. Supratherapeutic INR: 7. Left ventricular ejection fraction less than 20%: 8. Systolic congestive heart failure: 9. Hx of CAB. Pneumonia: 11. Acute hypoxemic respiratory failure: Plan: Patient states he is doing better this AM. Still requiring O2. Crackles in the lung. Will get x-ray to evaluate if this is more from CHF or the pneumonia. Continue Digoxin 125 mcg daily for rate control. Dig. level normal. Patient labs stable. He got lasix 20 mg yesterday x1. Continue midodrine to 5 TID. Referral to EP on an outpatient basis X-ray showed worsening opacities probable pulmonary edema. Discussed with Dr. Milligan. Will give lasix 40 mg one time dose now. Monitor BP and see how patient responds. PDMP PDMP Reviewed: Not Reviewed Attestations 2 Medical Necessity Statement*: Deferred to primary. Coding Level of Care Code Acute Code for [facility] Diagnoses Elevated liver enzymes R74.8 Hypotension I95.9 Acute on chronic renal insufficiency N28.9; N18.9 Atrial fibrillation I48.91 Rectal bleeding K62.5 Supratherapeutic INR R79.1 Left ventricular ejection fraction less than 20% R93.1 Systolic congestive heart failure I50.20 Hx of CABG Z95.1 Pneumonia J18.9 Acute hypoxemic respiratory failure J96.01
--- NOTE | 2025-08-04 10:59 | XRR_ITS ---
PROCEDURE INFORMATION: Exam: XR Chest Exam date and time: 08/04/2025 11:19 AM Age: 85 years old Clinical indication: Shortness of breath TECHNIQUE: Imaging protocol: Radiologic exam of the chest. Views: 1 view. COMPARISON: CR XR chest 1V portable [id number] 07/31/2025 10:44 AM FINDINGS: Lungs: Increased right upper and lower lung and left lower lung airspace opacities. Pleural spaces: No pneumothorax or pleural effusion. Heart/Mediastinum: Heart size can not be accurately assessed from this projection, but appears stably enlarged. Bones/joints: Median sternotomy. XR/XR chest 1V portable [id number] IMPRESSION: Increased bilateral airspace opacities.
[2025-08-04 13:08] LABS: NT Pro B Type Natriuretic Pept 32564 pg/mL (0-450)
[2025-08-04] MEDS: FUROsemide 10 mg/mL SDV 4mL 40 MG IVP (13:32)
[2025-08-04 15:43] LABS: Coronavirus 229E,HKU1,NL63,OC4 Not Detected (NOT DETECT); Parainfluenza Virus Type 1 Not Detected (NOT DETECT); Parainfluenza Virus Type 2 Not Detected (NOT DETECT); Parainfluenza Virus Type 3 Not Detected (NOT DETECT); Parainfluenza Virus Type 4 Not Detected (NOT DETECT); SARS-COV-2 Not Detected (NOT DETECT)
--- NOTE | 2025-08-04 16:59 | PC.NURSE ---
1659 notified asphalt paving supervisor pt's HR at rest is sustaining upper 100s to 110s at rest and in 120s to 130s on exertion. spo2 drop to 85% on exertion with 3 L NC. pt still looks short of breath w/ accessory muscle and abdominal usage. Received orders from Dr Milligan to give 150 mg IV of Amiodarone once then start Amio drip per protocol.
[2025-08-04] MEDS: amiodarone 150 MG/100 ML PREMIX 400 MG IV (17:11)
--- NOTE | 2025-08-04 17:41 | PM.PN ---
Subjective Subjective: He is feeling about unchanged. However, still requiring oxygen. So far without any further hematochezia. Vitals/I&O/Wt Last Vital Signs Temp 97.9 F 08/04/25 07:21 Pulse 100 08/04/25 16:00 Resp 29 H 08/04/25 16:00 BP 103/73 08/04/25 16:00 Pulse Ox 97 08/04/25 16:00 O2 Del Method Nasal Cannula 08/04/25 12:00 O2 Flow Rate 3 08/04/25 12:00 08/04/25 08/04/25 08/04/25 06:59 14:59 22:59 Intake Total 300 / 1850 1217 / 1217 Output Total 400 / 980 340 / 340 300 / 640 Balance -100 / 870 877 / 877 -300 / 577 Weight last 48 hrs Weight 81.5 kg Physical Exam Narrative: Sitting up in the chair Const: COMMON NORMALS: patient oriented x3 and alert GENERAL APPEARANCE: cooperative ORIENTATION/CONSCIOUSNESS: Yes awake HENMT: COMMON NORMALS: oropharynx normal Neck/C-Spine: COMMON NORMALS: no JVD Resp: COMMON NORMALS: normal respiratory effort and clear to auscultation bilaterally AUSCULTATION: clear to auscultation bilaterally Cardio: COMMON NORMALS: no JVD, regular rhythm, S1 normal heart sound present, S2 normal heart sound present and No murmurs present (Cardio) RHYTHM: regular rhythm HEART SOUNDS: S1 normal heart sound present and S2 normal heart sound present GI: COMMON NORMALS: Normal to inspection, nondistended, normoactive bowel sounds present, Soft to palpation and non-tender PALPATION: Yes Soft to palpation Extremity: COMMON NORMALS: no joint enlargement GENERAL: Yes edema (1+ ankle bilaterally) OTHER: Improvement in ankle edema Neuro: COMMON NORMALS: patient oriented x3 and moves all extremities SENSORIUM/ORIENTATION: Yes alert Skin: COMMON NORMALS: no rashes or lesions noted GENERAL SKIN EXAM: no rashes or lesions noted Data 08/04/25 07:53 08/04/25 07:53 Micro: Microbiology 07/31/25 17:35 Gram Stain - Final Sputum - Expectorated Sputum Sputum Culture - Final A&P Assessment and plan 1. Congestive heart failure: Reviewed vitals, continues to require oxygen. Discussed with cardiology team, overall has been stable, however, repeat x-ray which was obtained by cardiology does show worsening with increased airspace opacities. Still noted dyspneic. He is afebrile, without leukocytosis. Does not appear to have active pneumonia, however, with some interstitial opacities requested viral panel. Requesting also MBS to assess for any possible aspiration. With concern for ongoing acute CHF additional Lasix 40 mg IV given by cardiology, agree. Monitor risk of hypotension, kidney injury. Acute systolic and diastolic congestive heart failure. Persistent hypoxia. Peripheral edema. With low blood pressures has not been able to tolerate his Entresto. Would benefit from RESIDENTIAL CAREGIVER-P in the setting of low EF, A-fib, intraventricular conduction delay. Plans for follow-up as outpatient and referral. 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 Hypotension: Improved. Responded to fluid resuscitation. Levophed was ordered but did not end up requiring it. Transfer out of ICU. Continue to monitor blood pressures. Continue to hold antihypertensives. Check orthostatics. Up with assist. Discussed with nursing, supervisor case loading. 3. Pneumonia: Further assess viral panel. MBS. Continue Mucinex, flutter valve. Budesonide. Continues on empiric antibiotic currently. Reviewed blood culture, negative, sputum culture reviewed, few normal yessy growing. Continue to wean down oxygen support as tolerating. Not normally on oxygen. He requiring 3 L. Sepsis not present at this time. With transaminitis, antibiotics switched from cefepime to ceftriaxone. MRSA negative. Stop linezolid. Monitor for risk of cytopenia with both, as well as C. difficile. - Monitor for any development of sepsis - Reviewed nasal swabs for influenza/COVID/RSV -negative 4. Rectal bleeding: So far hemoglobin stable. Without further reported hematochezia. INR is coming down. Resume Plavix. Monitor for risk of bleeding. Reassess blood counts. Discussed with cardiology team, consider resumption of anticoagulation after discharge with Eliquis 2.5 mg. Reviewed INR, down to 2.27 Consideration of referral to surgery in case of recurrent bleeding if may be a candidate for colonoscopy. 5. Supratherapeutic INR: Gradually improving supratherapeutic INR, reviewed today, down to 2.27. Continue to hold warfarin. Continue to monitor for further bleeding, reassess blood counts. Still above target range 2?3, in the setting of active rectal bleeding. - Hold warfarin for now to allow INR to come down due to bleeding 6. Acute on chronic renal insufficiency: Renal function did show some mild improvement from ALEXEY. Creatinine down to 1.3. Acute kidney injury on chronic kidney disease : With improvement on review. BUN 60 creatinine at 1.3. Risk of further injury with contrast noted. - Reassess renal function - Monitor intake and output - Avoid nephrotoxins - Reviewed kidney and bladder ultrasound-no acute findings 7. Warfarin anticoagulation: INR recently 4; held warfarin. T target range 2?3, in the setting of active rectal bleeding. - Hold warfarin for now to allow INR to come down due to bleeding 8. Hypoxemia: Continue oxygen support. Monitor. Wean down as tolerated. 9. Elevated liver enzymes: Stop cefepime. Changed to ceftriaxone. Some worsening transaminitis. Possibly secondary to congestive hepatopathy, acute congestive heart failure. Trial of Lasix as above. Transaminitis and hyperbilirubinemia. Reviewed gallbladder ultrasound. Unremarkable. Reviewed CK. Hold statin and ezetimibe for now. Reviewed hepatitis panel. 10. Chronic atrial fibrillation: Atrial fibrillation on warfarin : Chronic atrial fibrillation anticoagulated with warfarin; current management complicated by supratherapeutic INR and GI bleeding. Recheck INR Low ventricular response, not normally on rate control. Plan: HTN: Hold Entresto HLD: Hold statin for now. Reviewed CK. Unremarkable. PDMP PDMP Reviewed: Not Reviewed Attestations Medical Necessity Statement*: Continue admission for assessment of management of new hypoxia with acute systolic and diastolic congestive heart failure with known severe cardiomyopathy, EF 15 to 20%, consideration of RESIDENTIAL CAREGIVER-D, cautious diuresis with risk of hypotension, treatment of suspected pneumonia, and gentleman with additional comorbidities as above. and High MDM includes amount and/or complexity of data reviewed/ordered [ resulted lab(s)/test(s), ordered lab(s)/test(s) and other healthcare professional discussion] and described risk of complication, morbidity or mortality of management as documented Diagnoses Congestive heart failure I50.9 Hypotension I95.9 Pneumonia J18.9 Rectal bleeding K62.5 Supratherapeutic INR R79.1 Acute on chronic renal insufficiency N28.9; N18.9 Warfarin anticoagulation Z79.01 Hypoxemia R09.02 Elevated liver enzymes R74.8 Chronic atrial fibrillation I48.20
[2025-08-04] MEDS: AMIODARONE HCL/D5W 900 MG/500 ML BAG 33.33 MG IV (18:11)
[2025-08-04] MEDS: cefTRIAXone 1,000 mg SDV 1000 MG IVP (21:52)
[2025-08-05] VITALS (11 sets, daily range): BP systolic 92–101; BP diastolic 48–70; PULSE 75–90; RESP 16–24; TEMP 36.7–37; O2SAT 90–98; BMI 25.7
[2025-08-05] MEDS: pantoprazole 40 mg SDV IVP ×2 (05:11→16:08)
[2025-08-05 05:55] LABS: Hematocrit 38.6 % (37-53); Hemoglobin 12.30 g/dL (11.27-16.99); Mean Corpuscular HGB Conc 31.9 g/dL (30-55); Mean Corpuscular Hemoglobin 28.0 pg (27-33); Mean Corpuscular Volume 87.7 fl (82-101); Nucleated Red Blood Cells % 0 %; Platelet Count 186 10^3/cmm (157-399); Red Blood Count 4.40 10^6/uL (3.85-5.65); White Blood Count 9.93 10^3/uL (3.29-11.43)
[2025-08-05 06:20] LABS: Alanine Aminotransferase 243 U/L (0-41); Albumin Level 2.9 g/dL (3.5-5.2); Alkaline Phosphatase 180 U/L (40-130); Blood Urea Nitrogen 49 mg/dL (8-23); Calcium 8.5 mg/dL (8.5-10.5); Carbon Dioxide 21 mmol/L (22-29); Chloride 103 mmol/L (98-107); Globulin 3.4 g/dL (1.3-4.6); Glucose 113 mg/dL (65-115); Osmolality Calculated 298 mOsm/kg (285-295); Sodium 137 mmol/L (136-145); Total Protein 6.3 g/dL (6.6-8.7)
[2025-08-05 06:22] LABS: Anion Gap 17.7 (5-19); Aspartate Amino Transferase 87 U/L (0-40); Potassium 4.7 mmol/L (3.5-5.1)
--- NOTE | 2025-08-05 08:00 | FL_ITS ---
WS: [id number] Modified barium swallow, 08/05/2025 Clinical Data: Oropharyngeal dysphagia Comparison: None. Fluoroscopy time: 2min [id number] # of spot films: Findings: The patient had delayed oral preparation but was able to initiate swallowing. There is minimal residual in the hypopharynx at the piriformis and the vallecula which did clear with double swallows. There is minimal penetration but no aspiration. The barium tablet moved normally from the oropharynx into the hypopharynx but then there was delay in the midesophagus. An oral chaser of barium propelled the tablet into the stomach. FL/FL barium swallow modifd [id number] Impression: 1. Delayed oral preparation with minimal hypopharyngeal residual. 2. Minimal penetration but no aspiration. 3. Hesitation of barium tablet at the mid esophagus.
[2025-08-05 08:01] LABS: INR 2.14 (0.8-1.2); Prothrombin Time 25.20 SECONDS (12.1-14.9)
[2025-08-05] MEDS: linezolid premix 600 MG/300 ML PREMIX 300 MG IV (09:13)
--- NOTE | 2025-08-05 11:10 | PC.SOCIAL ---
IMM Updated Updated pt on IMM. No questions voiced. Provided pt a copy. Initialed, dated, & timed copy in chart.
[2025-08-05] MEDS: FUROsemide 10 mg/mL SDV 4mL 40 MG IVP (11:34)
--- NOTE | 2025-08-05 12:14 | P.PN_ITS ---
<Statement entered by Wilver Milligan M.D - 08/13/25 10:47> Patient was cared for in conjunction with an advanced practice practitioner.? I reviewed the chart and all pertinent data including imaging, telemetry, and laboratory results.? I discussed the patient in detail with the advanced practice practitioner.? Please see their documentation for progress note, testing results and agreed upon plan of care for the patient. Subjective 2 Subjective: Patient states he feels better today. He went into A-fib RVR for a brief period yesterday and was placed on amiodarone drip. LFT are slightly improved and stable. Still has coarse crackles present. Vitals/I&O/Wt Last Vital Signs Temp 98.1 F 08/05/25 07:42 Pulse 82 08/05/25 11:08 Resp 22 H 08/05/25 11:08 BP 101/53 08/05/25 11:08 Pulse Ox 90 08/05/25 11:08 O2 Del Method Nasal Cannula 08/05/25 07:47 O2 Flow Rate 1 08/05/25 07:47 08/04/25 08/05/25 08/05/25 22:59 06:59 14:59 Intake Total 300 / 1517 716.069 / 2233.069 702.231 / 702.231 Output Total 500 / 840 Balance -200 / 677 716.069 / 1393.069 702.231 / 702.231 Weight last 48 hrs Weight 179 lb 1.6 oz Weight 179 lb 10.828 oz Physical Exam 2 Narrative: General: No apparent distress Muskuloskeletal: Full ROM Respiratory: Normal respiratory effort, bilateral lower lobes coarse crackles, no use of accessory muscles Cardio: No JVD, regular rate, regular rhythm, S1 S2 normal, no murmurs, peripheral pulses 2+ radial palpated bilaterally GI: Normal to inspection, nondistended Extremities: Full ROM, normal, normal capillary refill, no cyanosis, trace edema bilateral lower extremities Neuro: Alert and oriented x4 Psych: Affect normal, denies suicidal ideation, mental status grossly normal Skin: No rashes or lesions noted, no wounds Data 08/05/25 05:08 08/05/25 05:08 Micro: Microbiology 07/31/25 10:45 Blood Culture - Final Blood NO GROWTH AFTER 5 DAYS 07/31/25 10:45 Blood Culture - Final Blood NO GROWTH AFTER 5 DAYS A&P Assessment and plan 1. Elevated liver enzymes: 2. Hypotension: 3. Acute on chronic renal insufficiency: 4. Atrial fibrillation: 5. Rectal bleedin. Supratherapeutic INR: 7. Left ventricular ejection fraction less than 20%: 8. Systolic congestive heart failure: 9. Hx of CAB. Pneumonia: 11. Acute hypoxemic respiratory failure: Plan: Patient states he is feeling better today. Still has coarse crackles in the lungs. Continue light diuresis with Lasix IV 40 x 1. Continue Digoxin 125 mcg daily for rate control. Will check dig level in the AM. Patient labs stable. He got lasix 20 mg yesterday x1. Continue to monitor worsening BUN and creatinine. Continue midodrine to 5 TID. Referral to EP on an outpatient basis Patient still requires diuresis as he is fluid volume overloaded. PDMP PDMP Reviewed: Not Reviewed Attestations 2 Medical Necessity Statement*: Defer to primary Coding Level of Care Code Acute Code for [facility] Diagnoses Elevated liver enzymes R74.8 Hypotension I95.9 Acute on chronic renal insufficiency N28.9; N18.9 Atrial fibrillation I48.91 Rectal bleeding K62.5 Supratherapeutic INR R79.1 Left ventricular ejection fraction less than 20% R93.1 Systolic congestive heart failure I50.20 Hx of CABG Z95.1 Pneumonia J18.9 Acute hypoxemic respiratory failure J96.01
--- NOTE | 2025-08-05 12:49 | P.PN_ITS ---
Subjective 2 Subjective: He is subjectively feeling better today. Reports his breathing is doing little bit better. Denies chest pain. He is still coughing up some phlegm. States he has been using the flutter valve which has been helping him. He would like to go home if he is able to. Discussed we will discuss with cardiology. Will Vitals/I&O/Wt Last Vital Signs Temp 98.1 F 08/05/25 07:42 Pulse 82 08/05/25 11:08 Resp 22 H 08/05/25 11:08 BP 101/53 08/05/25 11:08 Pulse Ox 90 08/05/25 11:08 O2 Del Method Nasal Cannula 08/05/25 07:47 O2 Flow Rate 1 08/05/25 07:47 08/04/25 08/05/25 08/05/25 22:59 06:59 14:59 Intake Total 300 / 1517 716.069 / 2233.069 942.231 / 942.231 Output Total 500 / 840 Balance -200 / 677 716.069 / 1393.069 942.231 / 942.231 Weight last 48 hrs Weight 81.238 kg Weight 81.5 kg Physical Exam 2 Narrative: Sitting up in the chair Const: COMMON NORMALS: patient oriented x3 and alert GENERAL APPEARANCE: c ooperative ORIENTATION/CONSCIOUSNESS: Yes awake HENMT: COMMON NORMALS: oropharynx normal Neck/C-Spine: COMMON NORMALS: no JVD Resp: COMMON NORMALS: normal respiratory effort and clear to auscultation bilaterally AUSCULTATION: clear to auscultation bilaterally Cardio: COMMON NORMALS: no JVD, regular rhythm, S1 normal heart sound present, S2 normal heart sound present and No murmurs present (Cardio) RHYTHM: regular rhythm HEART SOUNDS: S1 normal heart sound present and S2 normal heart sound present GI: COMMON NORMALS: Normal to inspection, nondistended, normoactive bowel sounds present, Soft to palpation and non-tender PALPATION: Yes Soft to palpation Extremity: COMMON NORMALS: no joint enlargement GENERAL: Yes edema (1+ ankle bilaterally) OTHER: Improvement in ankle edema Neuro: COMMON NORMALS: patient oriented x3 and moves all extremities S ENSORIUM/ORIENTATION: Yes alert Skin: COMMON NORMALS: no rashes or lesions noted GENERAL SKIN EXAM: no rashes or lesions noted Data 08/05/25 05:08 08/05/25 05:08 Micro: Microbiology 07/31/25 10:45 Blood Culture - Final Blood NO GROWTH AFTER 5 DAYS 07/31/25 10:45 Blood Culture - Final Blood NO GROWTH AFTER 5 DAYS A&P Assessment and plan 1. Congestive heart failure: Discussed with cardiology. On further evaluation cardiology would like to optimize volume status further, giving additional diuretic. Reassess volume status. Monitor for risk of hypotension. Repeat chemistry. Reviewed CBC, chemistry. Discussed with worsening airspace process, underwent MBS. MBS with mild penetration per discussion with ST, without aspiration. Maintain aspiration precautions. Consider dysphagia diet depending on performance Reviewed respiratory panel, negative. Acute systolic and diastolic congestive heart failure. Persistent hypoxia. Peripheral edema. With low blood pressures has not been able to tolerate his Entresto. Would benefit from SLIDE ATTENDANT-P in the setting of low EF, A-fib, intraventricular conduction delay. Plans for follow-up as outpatient and referral. 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 Hypotension: Improved. Responded to fluid resuscitation. Levophed was ordered but did not end up requiring it. Transfer out of ICU. Continue to monitor blood pressures. Continue to hold antihypertensives. Check orthostatics. Up with assist. Discussed with nursing, child welfare caseworker. 3. Pneumonia: Reviewed viral panel. Reviewed MBS and discussed with speech therapist. Continue special precautions. Consider dysphagia diet depending on performance. Continue Mucinex, flutter valve. Budesonide. Continues on empiric antibiotic currently. Reviewed blood culture, negative, sputum culture reviewed, few normal yessy growing. Continue to wean down oxygen support as tolerating. Not normally on oxygen. He requiring 3 L. Sepsis not present at this time. With transaminitis, antibiotics switched from cefepime to ceftriaxone. MRSA negative. Stop linezolid. Monitor for risk of cytopenia with both, as well as C. difficile. - Monitor for any development of sepsis - Reviewed nasal swabs for influenza/COVID/RSV -negative 4. Rectal bleeding: So far without recurrence. So far hemoglobin stable. Without further reported hematochezia. INR is coming down. Resume Plavix. Monitor for risk of bleeding. Reassess blood counts. Discussed with cardiology team, consider resumption of anticoagulation after discharge with Eliquis 2.5 mg. Reviewed INR, down to down to 2.14. Consideration of referral to surgery in case of recurrent bleeding if may be a candidate for colonoscopy. 5. Supratherapeutic INR: Gradually improving supratherapeutic INR, reviewed today, down to 2.14. Discontinue warfarin. Continue to monitor for further bleeding, reassess blood counts. Still above target range 2?3, in the setting of active rectal bleeding. - Hold warfarin for now to allow INR to come down due to bleeding 6. Acute on chronic renal insufficiency: Renal function did show some mild improvement from ALEXEY. Creatinine down to 1.1. Acute kidney injury on chronic kidney disease : With improvement on review. BUN 60 creatinine at 1.1. Risk of further injury with contrast noted. - Reassess renal function - Monitor intake and output - Avoid nephrotoxins - Reviewed kidney and bladder ultrasound-no acute findings 7. Warfarin anticoagulation: INR recently 4; held warfarin. T target range 2?3, in the setting of active rectal bleeding. - Hold warfarin for now to allow INR to come down due to bleeding 8. Hypoxemia: Continue oxygen support. Monitor. Wean down as tolerated. 9. Elevated liver enzymes: Stop cefepime. Changed to ceftriaxone. Some worsening transaminitis. Possibly secondary to congestive hepatopathy, acute congestive heart failure. Trial of Lasix as above. Transaminitis and hyperbilirubinemia. Reviewed gallbladder ultrasound. Unremarkable. Reviewed CK. Hold statin and ezetimibe for now. Reviewed hepatitis panel. 10. Chronic atrial fibrillation: Atrial fibrillation on warfarin : Chronic atrial fibrillation anticoagulated with warfarin; current management complicated by supratherapeutic INR and GI bleeding. Recheck INR Low ventricular response, not normally on rate control. Consider switch from warfarin to low-dose Eliquis Plan: HTN: Hold Entresto HLD: Hold statin for now. Reviewed CK. Unremarkable. PDMP PDMP Reviewed: Not Reviewed Attestations 2 Medical Necessity Statement*: Continue admission for assessment of management of new hypoxia with acute systolic and diastolic congestive heart failure with known severe cardiomyopathy, EF 15 to 20%, cautious diuresis with risk of hypotension, treatment of suspected pneumonia, and gentleman with additional comorbidities as above. and High MDM includes amount and/or complexity of data reviewed/ordered [ resulted lab(s)/test(s), ordered lab(s)/test(s) and other healthcare professional discussion] and described risk of complication, morbidity or mortality of management as documented Diagnoses Congestive heart failure I50.9 Hypotension I95.9 Pneumonia J18.9 Rectal bleeding K62.5 Supratherapeutic INR R79.1 Acute on chronic renal insufficiency N28.9; N18.9 Warfarin anticoagulation Z79.01 Hypoxemia R09.02 Elevated liver enzymes R74.8 Chronic atrial fibrillation I48.20
[2025-08-05] MEDS: cefTRIAXone 1,000 mg SDV 1000 MG IVP (20:37)
[2025-08-06 03:52] VITALS: BP 109/63; PULSE 95; RESP 22; TEMP 36.7; O2SAT 96
[2025-08-06 05:28] VITALS: PULSE 95
[2025-08-06 05:28] LABS: Hematocrit 35.7 % (37-53); Hemoglobin 11.60 g/dL (11.27-16.99); Mean Corpuscular HGB Conc 32.5 g/dL (30-55); Mean Corpuscular Hemoglobin 27.5 pg (27-33); Mean Corpuscular Volume 84.6 fl (82-101); Nucleated Red Blood Cells % 0 %; Platelet Count 184 10^3/cmm (157-399); Red Blood Count 4.22 10^6/uL (3.85-5.65); White Blood Count 10.37 10^3/uL (3.29-11.43)
[2025-08-06] MEDS: pantoprazole 40 mg SDV IVP (05:28)
[2025-08-06 05:55] LABS: Digoxin 0.8 ng/mL (0.6-1.2)
[2025-08-06 05:57] LABS: Alanine Aminotransferase 210 U/L (0-41); Albumin Level 3.1 g/dL (3.5-5.2); Alkaline Phosphatase 181 U/L (40-130); Anion Gap 15.7 (5-19); Aspartate Amino Transferase 67 U/L (0-40); Blood Urea Nitrogen 50 mg/dL (8-23); Calcium 8.4 mg/dL (8.5-10.5); Carbon Dioxide 24 mmol/L (22-29); Chloride 103 mmol/L (98-107); Globulin 2.7 g/dL (1.3-4.6); Glucose 106 mg/dL (65-115); Osmolality Calculated 300 mOsm/kg (285-295); Potassium 4.7 mmol/L (3.5-5.1); Sodium 138 mmol/L (136-145); Total Protein 5.8 g/dL (6.6-8.7)
[2025-08-06 07:41] VITALS: PULSE 77; RESP 16; O2SAT 96
[2025-08-06 08:00] VITALS: BP 102/59; PULSE 80; RESP 20; TEMP 36.8; O2SAT 93
--- NOTE | 2025-08-06 09:29 | P.DS_ITS ---
Discharge Providers Date of Admission: 07/31/25 12:30 Date of Discharge: August 06, 2025 Attending Provider at Admission: Jeremy Encarnacion Attending Provider at Discharge: Jeremy Encarnacion Primary Care Provider: Nathaniel Ortiz MD Diagnoses at Discharge Discharge Diagnosis 1. Congestive heart failure: 2. Hypotension: 3. Pneumonia: 4. Rectal bleedin. Supratherapeutic INR: 6. Acute on chronic renal insufficiency: 7. Warfarin anticoagulation: 8. Hypoxemia: 9. Elevated liver enzymes: 10. Chronic atrial fibrillation: Reason for Visit Reason for Visit: SOB, Bright red bloody stool Brief History: Oswaldo Green is a 85 year old male with history of cardiomyopathy (last report ed left ventricular ejection fraction 15?20% in March), atrial fibrillation on warfarin, prior coronary artery bypass grafting, hypertension, and hyperlipidemia presents with several days of exertional shortness of breath and approximately one week of bright red blood in the toilet bowl with bowel movements. Reports cough producing clear sputum; denies fever and chills except transient shivering with very cold beverages. Denies vomiting and diarrhea. Denies chest pain. Notes lower extremity swelling at the feet/ankles and longstanding orthopnea, unable to lie flat for years and sleeps reclined. States weight loss recently. Home blood pressures generally in the 90s systolic; reports a recent clinic BP of 112 on the 10th. Not on home oxygen. Reports challenges stabilizing INR; had been taking warfarin 2.5 mg tablets, previously one tablet daily, stopped two days ago, and was instructed by Dr. Arrieta?s office to resume at half a tablet; target INR typically 2?3. Denies NSAID use, alcohol, and smoking. No prior colonoscopy; had an upper endoscopy approximately 10?12 years ago. Cardiovascular history includes myocardial infarction at age 48, CABG, and four coronary stents (last placed ~12 years ago). Has consistently refused implantable cardioverter-defibrillator (ICD) implantation in the past. States he previously took sacubitril/valsartan (Entresto) but it was discontinued. Code status discussed and patient affirms desire for full resuscitation, including defibrillation if needed. Hospital Course Hospital Course She received treatment for hypotension, volume responsive, received volume resuscitation, antihypertensives held, she was started on midodrine. Hypotension improved, blood pressure remaining soft. Gradually was able to resume diuretics with slow improvement in volume status. Additionally treated with antibiotic for possible bronchitis, possible pneumonia, with expectorant assistance. ALEXEY on presentation gradually improved. Echocardiogram similar to prior, low EF 15-20%. Right ventricular hypokinesis. Seen by cardiology, will be referred for ST[employer] MANGLE TENDER P device as outpatient. Discussed with him to discontinue Entresto at current time. Discussed additional medications are sent to his pharmacy, continue midodrine, digoxin, amiodarone. Lasix changed to 20 mg twice daily. Follow-up with cardiology. Additionally due to supratherapeutic INR with bright red blood per rectum on presentation, with INR returning to therapeutic range warfarin was discontinued with switch to low-dose Eliquis. Please follow-up for any recurrent bright red blood per rectum, consider referral for endoscopic evaluation in case of recurrence. He knows to seek medical attention in case of any worsening or new concerning symptoms. Physical Exam Narrative: Sitting up in the chair Const: COMMON NORMALS: patient oriented x3 and alert GENERAL APPEARANCE: cooperative ORIENTATION/CONSCIOUSNESS: Yes awake HENMT: COMMON NORMALS: oropharynx normal Neck/C-Spine: COMMON NORMALS: no JVD Resp: COMMON NORMALS: normal respiratory effort and clear to auscultation bilaterally AUSCULTATION: clear to auscultation bilaterally Cardio: COMMON NORMALS: no JVD, regular rhythm, S1 normal heart sound present, S2 normal heart sound present and No murmurs present (Cardio) RHYTHM: regular rhythm HEART SOUNDS: S1 normal heart sound present and S2 normal heart sound present GI: COMMON NORMALS: Normal to inspection, nondistended, normoactive bowel sounds present, Soft to palpation and non-tender PALPATION: Yes Soft to palpation Extremity: COMMON NORMALS: no joint enlargement GENERAL: Yes edema (1+ ankle bilaterally) OTHER: Improvement in ankle edema Neuro: COMMON NORMALS: patient oriented x3 and moves all extremities SENSORIUM/ORIENTATION: Yes alert Skin: COMMON NORMALS: no rashes or lesions noted GENERAL SKIN EXAM: no rashes or lesions noted Discharge Data Studies Completed and Pending Completed Studies During Hospitalization Category Date Time Status FL barium swallow modifd 14607 Routine Exams 08/05/25 08:00 Completed XR chest 1V portable [id number] Routine Exams 08/04/25 10:59 Completed XR chest 1V portable [id number] Stat Exams 07/31/25 10:22 Completed CV. echo limited [id number] Routine Ultrasound 08/01/25 15:22 Completed US abdomen complete* [id number] Routine Ultrasound 08/01/25 15:34 Completed Radiology Impressions Abdomen Ultrasound 08/01/25 15:34 IMPRESSION: No acute findings. Chest X-Ray 08/04/25 10:59 IMPRESSION: Increased bilateral airspace opacities. Modified Barium Swallow 08/05/25 08:00 Impression: 1. Delayed oral preparation with minimal hypopharyngeal residual. 2. Minimal penetration but no aspiration. 3. Hesitation of barium tablet at the mid esophagus. Laboratory Results WBC 10.37 10^3/uL (3.29-11.43) 08/06/25 04:52 RBC 4.22 10^6/uL (3.85-5.65) 08/06/25 04:52 Hgb 11.60 g/dL (11.27-16.99) 08/06/25 04:52 Hct 35.7 % (37-53) L 08/06/25 04:52 MCV 84.6 fl (82-101) 08/06/25 04:52 MCH 27.5 pg (27-33) 08/06/25 04:52 MCHC 32.5 g/dL (30-55) 08/06/25 04:52 RDW 19.5 % (12.1-15.1) H 08/06/25 04:52 Plt Count 184 10^3/cmm (157-399) 08/06/25 04:52 MPV 9.6 fL (7.4-10.4) 08/06/25 04:52 Neut % (Auto) 79.1 % 08/06/25 04:52 Lymph % (Auto) 12.3 % 08/06/25 04:52 [place] % (Auto) 6.2 % 08/06/25 04:52 Eos % (Auto) 1.7 % 08/06/25 04:52 Baso % (Auto) 0.3 % 08/06/25 04:52 Neut # (Auto) 8.20 10^3/uL (1.8-7.7) H 08/06/25 04:52 Lymph # (Auto) 1.3 10^3/uL (0.8-4.8) 08/06/25 04:52 [place] # (Auto) 0.6 10^3/uL (0.2-0.9) 08/06/25 04:52 Eos # (Auto) 0.2 10^3/uL (0.0-0.8) 08/06/25 04:52 Baso # (Auto) 0.0 10^3/uL (0.0-0.1) 08/06/25 04:52 Nucleated RBC % (auto) 0 % 08/06/25 04:52 Nucleated RBCs # 0.0 /100WBC 08/06/25 04:52 PT 25.20 SECONDS (12.1-14.9) H 08/05/25 07:41 INR 2.14 (0.8-1.2) H 08/05/25 07:41 APTT 52.1 SECONDS (23.9-36.7) H 07/31/25 10:45 Specimen Type Arterial 07/31/25 11:12 Sample Site Radial, right 07/31/25 11:12 ABG pH 7.46 (7.35-7.45) H 07/31/25 11:12 ABG pCO2 31.0 mmHg (35-45) L 07/31/25 11:12 ABG pO2 93.2 mmHg (80.0-100.0) 07/31/25 11:12 ABG PO2/FiO2 Ratio 332 07/31/25 11:12 ABG HCO3 22.2 mmol/L (22-26) 07/31/25 11:12 ABG O2 Saturation 97.3 07/31/25 11:12 ABG Base Excess -0.8 mmol/L (-2.0-2.0) 07/31/25 11:12 Bola Test Pos 07/31/25 11:12 A-a O2 Gradient 8.7 mmHg (5-10) 07/31/25 11:12 Hematocrit 37.2 % (42-52) L 07/31/25 11:12 Hgb O2 Saturation 95.7 % (95-100) 07/31/25 11:12 Carboxyhemoglobin 1.1 %THgb (0.4-20.1) 07/31/25 11:12 Methemoglobin 0.6 % (0.4-1.5) 07/31/25 11:12 Total Hemoglobin 12.1 g/dL (14-18) L 07/31/25 11:12 Sodium 139.0 mmol/L (131-143) 07/31/25 11:12 Potassium 4.2 mmol/L (3.5-5.0) 07/31/25 11:12 Glucose 156.0 mg/dL (70-115) H 07/31/25 11:12 Ionized Calcium 1.1 mmol/L (1.1-1.4) 07/31/25 11:12 O2 Delivery Device Nc 07/31/25 11:12 O2 Liters/Min 2.0 % 07/31/25 11:12 FiO2 28.0 % 07/31/25 11:12 Packaging Machine Operator ID glc 07/31/25 11:12 Sodium 138 mmol/L (136-145) 08/06/25 04:52 Potassium 4.7 mmol/L (3.5-5.1) 08/06/25 04:52 Chloride 103 mmol/L (98-107) 08/06/25 04:52 Carbon Dioxide 24 mmol/L (22-29) 08/06/25 04:52 Anion Gap 15.7 (5-19) 08/06/25 04:52 BUN 50 mg/dL (8-23) H 08/06/25 04:52 Creatinine 1.3 mg/dL (0.7-1.2) H 08/06/25 04:52 GFR Calculation Not Reportable 08/06/25 04:52 Glucose 106 mg/dL (65-115) 08/06/25 04:52 Calculated Osmolality 300 mOsm/kg (285-295) H 08/06/25 04:52 Lactic Acid 2.3 mmol/L (0.5-2.2) H 07/31/25 10:45 Lactic Acid (Sepsis) 1.3 mmol/L (0.5-2.2) 07/31/25 12:54 Calcium 8.4 mg/dL (8.5-10.5) L 08/06/25 04:52 Total Bilirubin 1.4 mg/dL (0.15-1.2) H 08/06/25 04:52 AST 67 U/L (0-40) H 08/06/25 04:52 ALT 210 U/L (0-41) H 08/06/25 04:52 Alkaline Phosphatase 181 U/L (40-130) H 08/06/25 04:52 Creatine Kinase 41 U/L (39-308) 07/31/25 16:57 Troponin T Baseline 65 ng/L (0-15) H 07/31/25 10:45 Troponin T 60 Minute 61.54 ng/L (0-15) H 07/31/25 11:32 Delta Troponin T -3.46 ABS# (0-10) L 07/31/25 11:32 Troponin T Hi Sens 6Hr 45.57 ng/L (0-15) H 07/31/25 16:57 Troponin T Hi Sens 6Hr Delta -19.43 ng/L (0-12) L 07/31/25 16:57 NT-Pro-B Natriuret Pep 57635 pg/mL (0-450) H 08/04/25 07:53 Total Protein 5.8 g/dL (6.6-8.7) L 08/06/25 04:52 Albumin 3.1 g/dL (3.5-5.2) L 08/06/25 04:52 Globulin 2.7 g/dL (1.3-4.6) 08/06/25 04:52 Nasal MRSA (PCR) Not detected (Negative) 07/31/25 15:30 Digoxin 0.8 ng/mL (0.6-1.2) 08/06/25 04:52 Adenovirus (PCR) Not detected (NOT DETECT) 08/04/25 13:46 C. pneumoniae DNA (PCR) Not detected (NOT DETECT) 08/04/25 13:46 Coronavirus 229E (PCR) Not detected (NOT DETECT) 08/04/25 13:46 Hepatitis A IgM Ab Non-reactive (Nonreactive) 07/31/25 16:57 Hep Bs Antigen Non-reactive (Nonreactive) 07/31/25 16:57 Hep B Core IgM Ab Non-reactive (Nonreactive) 07/31/25 16:57 Hepatitis C Antibody Non-reactive (Nonreactive) 07/31/25 16:57 Human Metapneumovir PCR Not detected (NOT DETECT) 08/04/25 13:46 Influenza A (H1) PCR Not detected (NOT DETECT) 08/04/25 13:46 Influenza A (PCR) Negative (Negative) 07/31/25 11:47 Influ A (H1/09) PCR Not detected (NOT DETECT) 08/04/25 13:46 Influenza A (H3) PCR Not detected (NOT DETECT) 08/04/25 13:46 Influenza Type A (PCR) Not detected (NOT DETECT) 08/04/25 13:46 Influenza Type B (PCR) Not detected (NOT DETECT) 08/04/25 13:46 M. pneumoniae (PCR) Not detected (NOT DETECT) 08/04/25 13:46 Parainfluenza 1 (PCR) Not detected (NOT DETECT) 08/04/25 13:46 Parainfluenza 2 (PCR) Not detected (NOT DETECT) 08/04/25 13:46 Parainfluenza 3 (PCR) Not detected (NOT DETECT) 08/04/25 13:46 Parainfluenza 4 (PCR) Not detected (NOT DETECT) 08/04/25 13:46 RSV (PCR) Negative (Negative) 07/31/25 11:47 RSV Type A (PCR) Not detected (NOT DETECT) 08/04/25 13:46 RSV Type B (PCR) Not detected (NOT DETECT) 08/04/25 13:46 Entero/Rhino (PCR) Not detected (NOT DETECT) 08/04/25 13:46 SARS-CoV-2 (PCR) Not detected (NOT DETECT) 08/04/25 13:46 Blood Type A Positive 07/31/25 20:22 Rho(D) Type Rh positive 07/31/25 20:22 Antibody Screen Negative 07/31/25 20:22 Crossmatch See Detail 07/31/25 20:22 Vitals Last Vital Signs Temp 98.0 F 08/06/25 03:52 Pulse 77 08/06/25 07:41 Resp 16 08/06/25 07:41 BP 109/63 08/06/25 03:52 Pulse Ox 96 08/06/25 07:41 O2 Del Method Nasal Cannula 08/06/25 07:41 O2 Flow Rate 2 08/06/25 07:41 Discharge Plan Discharge Patient Disposition: Home Condition: Stable Prescriptions: New Eliquis 2.5 mg tablet 2.5 mg PO BID Qty: 90 0RF cefdinir 300 mg capsule 300 mg PO BID 3 Days Qty: 6 0RF midodrine 5 mg tablet 5 mg PO TID Qty: 90 0RF Rx Instructions: do not give last dose of day after 6PM or within 4 hrs of bedtime digoxin 125 mcg (0.125 mg) tablet 125 mcg PO DAILY Qty: 90 0RF amiodarone 200 mg tablet 200 mg PO DAILY Qty: 90 0RF Continued atorvastatin 80 mg tablet 40 mg PO DAILY ezetimibe 10 mg tablet 10 mg PO DAILY Qty: 90 3RF potassium chloride 20 mEq tablet extended release See Rx Instructions .ROUTE .COMPLEX Qty: 90 3RF Dose Instruction: TAKE 1 TABLET BY MOUTH ONCE DAILY TAKE WITH LASIX Rx Instructions: TAKE 1 TABLET BY MOUTH ONCE DAILY TAKE WITH LASIX clopidogrel 75 mg tablet 75 mg PO DAILY Qty: 90 3RF hydrocodone-acetaminophen 5-325 mg tablet 1 - 2 tab PO QID PRN (Reason: Pain) cetirizine 10 mg tablet 10 mg PO DAILY fluticasone propionate 50 mcg/actuation [place],Suspension 2 spray INTRANASAL DAILY PRN (Reason: allergies) Rx Instructions: administer into each nostril Changed furosemide 40 mg tablet 20 mg PO BID Qty: 180 1RF Discontinued warfarin 2.5 mg tablet See Rx Instructions .ROUTE .COMPLEX Qty: 60 3RF Protocol: Dose Management Condition: Sunday Dose/Route: 2.5 mg Instruction: 1 x 2.5 mg tablet Condition: Sunday Dose/Route: 2.5 mg Instruction: 1 x 2.5 mg tablet Condition: Sunday Dose/Route: 2.5 mg Instruction: 1 x 2.5 mg tablet Condition: Sunday Dose/Route: 0 mg Instruction: 0 tablets Condition: Dose/Route: 1.25 mg Instruction: 0.5 x 2.5 mg tablets Condition: Sunday Dose/Route: 2.5 mg Instruction: 1 x 2.5 mg tablet Condition: Sunday Dose/Route: 2.5 mg Instruction: 1 x 2.5 mg tablet Protocol Text: Adjustment Start Date: Sunday07/29/25 INR Value: 45.5 Seconds INR Date: 07/29/25 Recheck Date: 08/05/25 Dose Instruction: TAKE 1 TABLET BY MOUTH ONCE DAILY DIRECTED PER INR RESULTS Rx Instructions: TAKE 1 TABLET BY MOUTH ONCE DAILY DIRECTED PER INR RESULTS Entresto 24-26 mg tablet 1 tab PO BID Qty: 120 3RF Discharge Order = DC NOW: Discharge Order (Routine); Ordered 08/06/25 Ordered By: Jeremy Encarnacion Other Ambulatory Orders: DME: Oxygen (Order) Location: None Selected Ordered By: Jeremy Encarnacion Referrals: [facility] [Outside] Ml Davila NP [Nurse Practitioner, Cardiology] - 08/25/25 2:00 pm Nathaniel Ortiz MD [Primary Care Provider, [facility]] - 08/10/25 3:00 pm Gisela Jay MD [Referring, Cardiology] - 1 week Referral Note: Possible [facility] has faxxed all pertinant information to office. They will review it and call patient at home Discharge Diet: As Directed and Cardiac Discharge Activity: Oxygen as instructed Patient Instructions: Atrial Fibrillation, Cefdinir (By mouth), Apixaban (By mouth), Heart Failure (DC), Rectal Bleeding (DC), Chronic Hypertension (DC), Community Acquired Pneumonia (DC), Acute Respiratory Failure (GEN), CHF Stoplight, Opioid Safety, Pneumonia Stoplight, Patient Portal & Emre Instructions Activity Restrictions/Additional Instructions: Follow-up with cardiology in office for reassessment of congestive heart failure. Continue oxygen, target oxygen saturation 90%. Complete antibiotic course for pneumonia. Stop warfarin. You are started on low-dose Eliquis to help reduce chance of strokes from atrial fibrillation, start this medication day after tomorrow on the . However, in case of any recurrence of blood in the stool please stop Eliquis and seek medical attention. If there is small amount of blood discussed with your primary doctor regarding setting up for colonoscopy. Otherwise go to ED. GI soft diet. Aspiration precautions. Have your primary doctor recheck your kidney function to confirm recovery from acute kidney injury. Seek medical attention in case of any worsening or new concerning symptoms. Discharge Attestations Time Spent in Discharge Care*: greater than 30 min Status at Discharge: Cognitive status at discharge: cognitively intact , Behavioral status at discharge: cooperative , Quality Metrics Clinical Quality Measures [ No reported AMI, CVA or VTE this stay] Coding Level of Care Code 31214 Total time (in minutes) for Discharge: 55 Diagnoses Congestive heart failure I50.9 Hypotension I95.9 Pneumonia J18.9 Rectal bleeding K62.5 Supratherapeutic INR R79.1 Acute on chronic renal insufficiency N28.9; N18.9 Warfarin anticoagulation Z79.01 Hypoxemia R09.02 Elevated liver enzymes R74.8 Chronic atrial fibrillation I48.20
[2025-08-06 10:03] VITALS: BP 98/59; PULSE 78; RESP 18; O2SAT 93
--- NOTE | 2025-08-06 12:26 | P.PN_ITS ---
<Statement entered by Wilver Milligan M.D - 08/13/25 10:51> Patient was cared for in conjunction with an advanced practice practitioner.? I reviewed the chart and all pertinent data including imaging, telemetry, and laboratory results.? I discussed the patient in detail with the advanced practice practitioner.? Please see? their documentation for progress note, testing results and agreed upon plan of care for the patient. Subjective 2 Subjective: Patient doing well today. He states he feels much better. Responded well to the Lasix. Creat. slightly increased at 1.3. Vitals/I&O/Wt Last Vital Signs Temp 98.2 F 08/06/25 08:00 Pulse 78 08/06/25 10:03 Resp 18 08/06/25 10:03 BP 98/59 08/06/25 10:03 Pulse Ox 93 08/06/25 10:03 O2 Del Method Nasal Cannula 08/06/25 07:41 O2 Flow Rate 2 08/06/25 07:41 08/05/25 08/06/25 08/06/25 22:59 06:59 14:59 Intake Total 240 / 1182.231 240 / 1422.231 360 / 360 Output Total 200 / 400 100 / 500 200 / 200 Balance 40 / 782.231 140 / 922.231 160 / 160 Weight last 48 hrs Weight 180 lb 4.8 oz Weight 179 lb 1.6 oz Physical Exam 2 Narrative: General: No apparent distress Muskuloskeletal: Full ROM Respiratory: Normal respiratory effort, bilateral lower lobes fine crackles, no use of accessory muscles Cardio: No JVD, regular rate, regular rhythm, S1 S2 normal, no murmurs, peripheral pulses 2+ radial palpated bilaterally GI: Normal to inspection, nondistended Extremities: Full ROM, normal, normal capillary refill, no cyanosis, trace edema bilateral lower extremities Neuro: Alert and oriented x4 Psych: Affect normal, denies suicidal ideation, mental status grossly normal Skin: No rashes or lesions noted, no wounds Data 08/06/25 04:52 08/06/25 04:52 Micro: Microbiology 07/31/25 10:45 Blood Culture - Final Blood NO GROWTH AFTER 5 DAYS 07/31/25 10:45 Blood Culture - Final Blood NO GROWTH AFTER 5 DAYS A&P Assessment and plan 1. Elevated liver enzymes: 2. Hypotension: 3. Acute on chronic renal insufficiency: 4. Atrial fibrillation: 5. Rectal bleedin. Supratherapeutic INR: 7. Left ventricular ejection fraction less than 20%: 8. Systolic congestive heart failure: 9. Hx of CAB. Pneumonia: 11. Acute hypoxemic respiratory failure: Plan: Patient states he is feeling better today. Wants to go home. Continue light diuresis with Lasix IV 40 x 1 today. Continue Digoxin 125 mcg daily for rate control. Digoxin level normal. Continue amiodarone 200 mg daily. Patient labs stable. He got lasix 40 mg yesterday x1. Continue midodrine to 5 TID. Referral to EP on an outpatient basis Patient would like to go home. From cardiology standpoint, may go home on oral diuretics including lasix 20 PO BID. 1.5 L fluid restriction. Low sodium diet. F/U in the clinic for further eval and treatment. When INR less than 2, switch patient to Eliquis for stroke prophylaxis in afib. PDMP PDMP Reviewed: Not Reviewed Attestations 2 Medical Necessity Statement*: May be discharged from cardiology perspective Coding Level of Care Code Acute Code for Chg Fwd Diagnoses Elevated liver enzymes R74.8 Hypotension I95.9 Acute on chronic renal insufficiency N28.9; N18.9 Atrial fibrillation I48.91 Rectal bleeding K62.5 Supratherapeutic INR R79.1 Left ventricular ejection fraction less than 20% R93.1 Systolic congestive heart failure I50.20 Hx of CABG Z95.1 Pneumonia J18.9 Acute hypoxemic respiratory failure J96.01
--- NOTE | 2025-08-06 13:19 | PC.NURSE ---
discharge instructions given to pt and spouse.they verb understanding of instructions.discharged via w/c to exit at 1240.
== END 2025-08-06 12:40 | disposition home or self-care (01) | DRG 314 ==
LOC: ER 12:23 → ICU 12:31 → CSU 08-01 11:33
PROVIDERS: Nurse Practitioner Family; Admitting Provider Internal Medicine; Emergency Provider Emergency Medicine; PCP Family Medicine; Visit Provider Internal Medicine
DX: I95.9 Hypotension, unspecified (principal); I50.41 Acute combined systolic (congestive) and diastolic (congestive) heart failure; J18.9 Pneumonia, unspecified organism; J96.01 Acute respiratory failure with hypoxia; K62.5 Hemorrhage of anus and rectum; N17.9 Acute kidney failure, unspecified; I48.20 Chronic atrial fibrillation, unspecified; I13.0 Hypertensive heart and chronic kidney disease with heart failure and stage 1 through stage 4 chronic kidney disease, or unspecified chronic kidney disease; N18.9 Chronic kidney disease, unspecified; Z79.01 Long term (current) use of anticoagulants; E78.5 Hyperlipidemia, unspecified; I25.10 Atherosclerotic heart disease of native coronary artery without angina pectoris; I77.9 Disorder of arteries and arterioles, unspecified; R74.01 Elevation of levels of liver transaminase levels; E80.6 Other disorders of bilirubin metabolism; Z99.81 Dependence on supplemental oxygen
CPT/HCPCS: 36415; 36430; 36600; 71045; 74230; 76700; 80051; 80053; 80074; 80162; 82330; 82550; 82805; 83605; 83880; 84484; 85014; 85018; 85025; 85610; 85730; 86403; 86850; 86900; 86920; 87040; 87070; 87205; 87449; 87486; 87581; 87633; 87637; 92611; 93005; 93308; 94640; 94760; 96365; 96375; 99285; A4222; J0282; J0283; J0692; J0696; J1938; J2020; J2185; J2470; J7030; J7050; J7626; J9999; P9016; P9046

== ENCOUNTER 2025-08-08 15:42 | Emergency (ER) | payer MEDICARE, SELFPAY ==
[2025-08-08 15:46] VITALS: BP 109/67; PULSE 93; RESP 22; TEMP 36.6; O2SAT 88
--- OUTSIDE RECORDS SUMMARY | 2025-08-08 15:47 | XMS_ITS | Clinical Summary ---
Author Organization [facility] Address [address] Attn: Epic Prelude ADT MAMADOU FUNES [id number] Care Team Providers Care Financial Agent Name Role Phone Unavailable Primary Care Provider Unavailabl e Encounters Date Type Department Care Team Description 08/05/2025 Telephone [facility] [address] [facility] [address] [place] [address] Provider, Abstract Referral from Last 3 Months Social History Tobacco Use Types Packs/Day Years Used Date Smoking Tobacco: Never Assessed Sex and Gender Information Value Date Recorded Sex Assigned at Not on file 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
--- OUTSIDE RECORDS SUMMARY | 2025-08-08 15:47 | XMS_ITS | Encounter Summary ---
Author Organization [employer] Address [address] [place] [address] Care Team Providers Care Manager General Name Role Phone Unavailable Primary Care Provider Unavailabl e Reason for Visit * Reason Onset Date Comments Referral 08/05/2025 Encounter Details Date Type Department Care Team (Late st Contact Info) Description 08/05/2025 Telephone [facility] [address] [place] [address] Provider, Abstract NO ADDRESS ON FILE Referral Social History Tobacco Use Types Packs/Day Years Used Date Smoking Tobacco: Never Assessed Sex and Gender Information Value Date Recorded Sex Assigned at Not on file 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 Referral fax number provided. AINABLE PRODUCTS MARKETING MANAGER documented in this encounter Plan of Treatment Not on file documented as of this encounter Visit Diagnoses Not on filedocumented in this encounter
--- OUTSIDE RECORDS SUMMARY | 2025-08-08 15:47 | XMS_ITS | Clinical Summary ---
Author Organization [facility] Address [address] [place] [address] Care Team Providers Care Mold Capper Name Role Phone Unavailable Primary Care Provider Unavailabl e Medications clopidogrel (PLAVIX) 75 mg Oral Tab Take 1 Tab by mouth daily. Pt to take med till Sep 2009 then will have to check with his primary field liability generalist Dr. 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
--- OUTSIDE RECORDS SUMMARY | 2025-08-08 15:47 | XMS_ITS | Data Portability ---
Author Organization [facility], [facility] Address [address] [address] [place] [address] Care Team Providers Care Sterile Preparation Technician Name Role Phone LIDA ORTIZ Primary Care Provider Assessment No assessment recorded. Plan of Treatment Reminders Order Date Submit Date Provider Last Modified By Organization Details Last Modified Time Details Appointments HOSPITAL f/u 15 2024 03:00P M Lida Ortiz MD Not available Not available Not available Lab PT/INR 2023 024 [facility] [address] [place], [address], 06/24/2024 12:06:52 Referral otolaryng ologist referral 2023 024 [email or web address] Sanju Flower MD, [address] [place], [address], 09/12/2024 16:38:02 Procedures None recorded. Surgeries None recorded. Imaging CT, sinuses, w/o contrast [facility] [address] [place], [address], 08/18/2024 09:58:26 Medication Orders amoxicill in 875 mg-potass ium clavulana te 125 mg tablet 2024 025 [facility], [address], [place], [address], 01/28/2025 14:03:27 Augmentin 875 mg-125 mg tablet 2023 024 [email or web address] [facility], [address], [place], [address], 01/28/2025 14:03:14 cetirizin e 10 mg tablet 2023 024 [email or web address] [facility], [address], [place], [address], 06/19/2024 15:29:51 doxycycli ne hyclate 100 mg capsule 2023 024 JOSE ANGEL [facility], [address], [place], [address], 08/08/2024 12:08:46 Patient TargetsNo targets recorded. Patient InstructionsNo instructions recorded. Reason for Referral Therapy Aide Referral fo r Chronic sinusitis Referring Physician: Lida Ortiz, Family Medicine, Encounter Date: 08/08/2024 Results Created Date Observation Date Name Description Value Unit Range Abnormal Flag Note LastModifiedBy Organization Detail LastModifiedTime 06/24/2006/24/2024 PT/IN R Protime 27.0 Not Available [facility] ([facility]) [address] [place], [address], 06/24/2024 11:58:00 06/24/20 24 06/24/2024 PT/IN R INR 2.2 Not Available [facility] ([facility]) [address] [place], [address], 06/24/2024 11:58:00 08/26/19 25 08/26/2024 CT, sinus es, w/o contr ast No observ ation record ed. [facility] [address] [place], [address], 09/01/2024 14:56:36 Result Notes None recorded. Problems Name Problem SNOMED Code Status Onset Date Resolution Date Notes Provider Name and Address Organization Details Recorded Time Actinic keratosi s Completed 201809/21/2018 ACTINIC KERATOSI S - Status is Inactive ; Recorded 09/21/19 19 9:58AM by Devora Sales CMT, Sher on/Adden dum; Promoted ; acuity set as *; Not Available [facility] 3 03:16:31 Toxic effect of venom [id number] Completed 201809/21/2018 INSECT BITES AND STINGS, UNDETERM INED INTENT, INITIAL ENCOUNTE R - Status is Inactive ; Impressi on: Today we have a 77 year old male paris who presents 3-4 days after being bitten by a tick. He thinks the tick was on his arm for about a day. It was swollen and engorged . Today the bite itself is pink and raised. It is not painful and it does not itch. He has a ring around the would that appears to be bruising from blood thinners , however it is difficul t to be ccertain there is no erythema migrans. As such, I will give him a one time dose of prophyla ctic doxycycl ine and have him return with fever, chills, nausea, vomiting or diarrhea . He verbaliz es understa nding and POC.; Recorded 09/21/19 19 9:58AM by Devora Sales CMT, Sher on/Silvestre dum; Promoted ; acuity set as *; Not Available [facility] 3 03:16:33 Hyperlip idemia 79842910 Active 2021 HYPERLIP IDEMIA; Recorded 08/16/20 22 10:30AM by Devora Sales CMT, Office Visit; Promoted ; acuity set as *; KELSY fung [facility], L.L[facility]CR[facility] 5 13:45:50 Hyperten sive disorder 74737707 Active 2021 HYPERTEN LISA; Recorded 08/16/20 22 10:30AM by Devora Sales CMT, Office Visit; Promoted ; acuity set as *; KELSY fung [facility] 5 13:45:42 Chronic osteoart hritis 91592966 Active 2022 KELSY WILLIAMSONHerman fung [facility] L.L.CR[facility] 5 13:46:11 Congesti ve heart failure 48398374 Active 2022 KELSY WILLIAMSONHerman fung [facility] L[facility] 5 13:45:29 Atrial fibrilla tion 79743057 Active 2022 KELSY GIOVANI fung [facility] L.L[facility] 5 13:45:19 Osteoart hritis of left hip joint 63221250242 9108 Active 2024 Lida Ortiz MD [address] [place] [address], [phone], L.L.CRaul 14:16:10 Problem Notes None recorded. Procedures Surgical History Date Name Laterality Status Provider Name and Address Organization Details Recorded Time procedure on heart completed Karina Melvin [facility] 06/19/2024 15:09:52 bypass graft completed [facility] 08/08/2024 11:30:00 Imaging Results None recorded. Procedure Notes None recorded. Medical Equipment None Reported. Allergies Allergen ID Allergen Name Allergen Category Reaction Reaction Severity Criticality Documentation Date Start Date Code Code System Note Provider Name and Address Organization Details Recorded Time 60194 empaglifl ozin medicatio n Not available Not available Not available 07/06/20252024 25714 53 RxNorm Not Available jose angel - External Data Service - prod 15:29:49 07289 carvedilo l medicatio n Not available Not available [facility] 07/06/20252024 98081 RxNorm Not Available jose angel - External Data Service - prod 15:29:49 Medications Name Sig Start Date Stop Date Status Note LastModified by Organization Details LastModified Time furosemid e 40 mg tablet TAKE 1 TABLET BY MOUTH TWICE DAILY active Not Available Not Available No t Available metolazon e 2.5 mg tablet TAKE 1 TABLET BY MOUTH ONCE DAILY active Not Available Not Available No t Available atorvasta tin 80 mg tablet TAKE 1 TABLET BY MOUTH ONCE DAILY active Not Available Not Available No t Available prednison e 10 mg tablet TAKE 6 TABLETS BY MOUTH ONCE DAILY FOR 3 DAYS, THEN 4 TABLETS DAILY FOR 3 DAYS, THEN 2 TABLETS DAILY FOR 3 DAYS, THEN 1 TABLET DAILY FOR 3 DAYS 01/28 completed Not Available Not Available Not Available doxycycli ne hyclate 100 mg capsule TAKE 1 CAPSULE BY MOUTH TWICE DAILY 08/08 completed Not Available Not Available Not Available cetirizin e 10 mg tablet TAKE 1 TABLET BY MOUTH ONCE DAILY active Not Available Not Available No t Available azithromy yash 250 mg tablet TAKE 2 TABLETS (500 MG) BY ORAL ROUTE ONCE DAILY FOR 1 DAY THEN 1 TABLET (250 MG) BY ORAL ROUTE ONCE DAILY FOR 4 DAYS 11/13 completed Not Available Not Available Not Available hydrocodo ne 5 mg-acetam inophen 325 mg tablet TAKE 1 TO 2 TABLETS BY MOUTH 4 TIMES DAILY NEEDED active Not Available Not Available No t Available prednison e 20 mg tablet Take 1 tablet every day by oral route. 02/25 completed Not Available Not Available Not Available fluoroura cil 5 % topical cream APPLY A THIN LAYER TO THE ALTERNAT ING AFFECTED AREAS ON ARMS AND HANDS TWICE DAILY FOR 2 WEEKS 01/28 completed Not Available Not Available Not Available warfarin 2.5 mg tablet TAKE 1 TABLET BY MOUTH ONCE DAILY DIRECTED PER INR RESULTS active Not Available Not Available No t Available clopidogr el 75 mg tablet TAKE 1 TABLET BY MOUTH ONCE DAILY active Not Available Not Available No t Available spironola ctone 25 mg tablet TAKE 1 TABLET BY MOUTH ONCE DAILY active Not Available Not Available No t Available imiquimod 5 % topical cream packet APPLY A THIN FILM TO RAISED AFFECTED AREAS AT BEDTIME SUNDAY THROUGH SUNDAY (OFF WEEKENDS ) FOR 2 WEEKS 02/25 completed Not Available Not Available Not Available furosemid e 20 mg tablet TAKE 1 TABLET BY MOUTH TWICE DAILY 01/28 completed Not Available Not Available Not Available fluticaso ne propionat e 50 mcg/actua tion nasal spray,[employer] USE 1 SPRAY(S) IN EACH NOSTRIL ONCE DAILY WITH SUPPER active Not Available Not Available No t Available doxycycli ne hyclate 100 mg tablet TAKE 1 TABLET BY MOUTH TWICE DAILY FOR 21 DAYS 01/28 completed Not Available Not Available Not Available amoxicill in 875 mg-potass ium clavulana te 125 mg tablet TAKE 1 TABLET BY MOUTH EVERY 12 HOURS FOR 14 DAYS 01/28 completed Not Available Not Available Not Available ezetimibe 10 mg tablet TAKE 1 TABLET BY MOUTH ONCE DAILY active Not Available Not Available No t Available Lipitor daily 11/13 completed 30839; Recorded 09/25/19 23 7:40AM by Bozena Garcia RN (Authori zed through Sly Hagen DO), Annotati on/Adden dum; Refill Quantity : 0; Not Available Not Available Not Available Coumadin daily 11/[address] Arrieta; 6; Recorded 06/22/20 16 6:50AM by Estephania Rios LPN (Authori zed through Woodrow Mckeon MD), Office Visit; Refill Quantity : 0; Not Available Not Available Not Available potassium chloride ER 20 mEq tablet,ex tended release TAKE 1 TABLET BY MOUTH ONCE DAILY. TAKE WITH FUROSEMI DE active Not Available Not Available No t Available Jardiance 10 mg tablet Take 1 tablet every day by oral route for 90 days. 02/25 completed Not Available Not Available Not Available Entresto 97 mg-103 mg tablet TAKE 1 TABLET BY MOUTH TWICE DAILY 11/13 completed Not Available Not Available Not Available sacubitri l 24 mg-valsar dee 26 mg tablet TAKE 1 TABLET BY MOUTH TWICE DAILY active Not Available Not Available No t Available Entresto two times daily 11/13 completed cardilog y; 70464; Recorded 12/30/19 22 3:23PM by Estephania Rios LPN (Authori zed through Patricia Fields PA-C), Annotati on/Adden dum; Refill Quantity : 0; Not Available Not Available Not Available Vitals Date Recorded Body height Body mass index (BMI) Body weight Body temperature Oxygen saturation Heart rate Systolic And Diastolic Provider Name and Address Organization Details Last Updated DateTime 5 177.8 cm 26.4 kg/m2 18618.4 g 97.4 [degF] 95 % 60 /min 100/60 mm[Hg] KOMAL ASH [facility] 5 14:52:48 Date Recorded Body height Body mass index (BMI) Body weight Body temperature Oxygen saturation Heart rate Systolic And Diastolic Provider Name and Address Organization Details Last Updated DateTime 5 177.8 cm 25.5 kg/m2 17307.4 4 g 97.5 [degF] 96 % 77 /min 106/60 mm[Hg] Gabriela Sapp [facility] 5 13:57:51 Date Recorded Body height Body mass index (BMI) Body weight Oxygen saturation Heart rate Systolic And Diastolic Provider Name and Address Organization Details Last Updated DateTime 4 177.8 cm 26.8 kg/m2 84097.7 7 g 96 % 85 /min 106/64 mm[Hg] Karina [facility] 4 15:08:50 Date Recorded Body height Body mass index (BMI) Body weight Oxygen saturation Heart rate Respiratory rate Body temperature Systolic And Diastolic Provider Name and Address Organization Details Last Updated DateTime 4 177.8 cm 26.3 kg/m2 05960.4 g 97 % 68 /min 16 /min 97.7 [degF] 82/50 mm[Hg] Karina Melvin [facility] 4 11:26:00 Social History Question Answer Notes LastModified by Organizat ion Details LastModified Time Tobacco Smoking Status Never [facility]oker [facility] 04/30/2023 14:13:34 Are You Blind Or Do You Have Difficulty Seeing? No [email or web address] Information not available 04/30/2023 What Is Your Level Of Caffeine Consumption? Moderate Information not available 01/28/2025 Are You Deaf Or Do You Have Serious Difficulty Hearing? No [email or web address] Information not available 04/30/2023 What Was The Date Of Your Most Recent Tobacco Screening? 01/28/2025 [email or web address] Information not available 01/28/2025 Do You Have Difficulty Walking Or Climbing Stairs? No [email or web address] Information not available 04/30/2023 Sex: Unknown Functional Status Question Answer Note LastModified by Organizat ion Details LastModified Time Do you use any illicit or recreational drugs? No [email or web address] Information not available 02/26/2024 Do you or have you ever used any other forms of tobacco or nicotine? No [email or web address] Information not available 04/30/2023 What is your level of alcohol consumption? None [email or web address] Information not available 04/30/2023 Are you able to walk independently without assistance or assistive devices? YESWOREST [email or web address] Information not available 04/30/2023 Do you have difficulty doing errands alone? No [email or web address] Information not available 04/30/2023 Are you able to care for yourself independently? Yes [email or web address] Information not available 04/30/2023 Do you have difficulty dressing, bathing, grooming, or toileting? No [email or web address] Information not available 04/30/2023 Mental Status Question Answer Note LastModified by Organization D etails LastModified Time Do you have difficulty concentrating, remembering or making decisions? No Information no t available 04/30/2023 Family History Relationship Description Onset Age of this Age Resolved Age Notes LastModified by Organization Details LastModified Time Father No current problems or disability heart diseas e [email or web address] Not available 08/08/2024 11:31:21 Mother No current problems or disability [email or web address] Not available 11:30:47 Brother No current problems or disability heart diseas e [email or web address] Not available 08/08/2024 11:31:54 Medical History Condition Response Coronary Artery Disease N Other N Gout N Kidney Stones N Blood Diseases N Hyperthyroidism N Breast Cancer N Blood Transfusion N Hypothyroidism N Depression N COPD N Lung Disease N Defects or Inherited Disease N Developmental or Behavioral Disorders N Breast Problem N Difficulty Swallowing N Anesthesia Complications N Anxiety Disorder N Meniere's disease N Muscle, Joint, or Bone Problems Y Vision or Eye Problems N Arthritis N Polyps N Infertility N Cancer N Varicosities N Stroke N Endometriosis N Bladder or Kidney Problems N High Cholesterol Y Liver Disease N Headaches N Fibromyalgia N Kidney Disease N Allergies/Hayfever N Heart Problems N Ear or Hearing Problems N Hospitalizations N Thyroid Problems N GI Problems N ADD/ADHD N Skin Problems N Eating Disorder N Anemia N Constipation N Mental Illness N Ovarian Cancer N Diabetes N Bedwetting N Seizures/Epilepsy N Tuberculosis N Eczema N Diverticulitis N Abuse/Domestic Violence N Asthma N Reflux/GERD N Hepatitis N Heart Disease Y Pulmonary Embolism N Chronic Ear Infections N Pre-Eclampsia N Hypertension N Chicken Pox N Autism Spectrum Disorder (ASD) N Osteoporosis N Thrombophilias N Immunizations Vaccine Type Date Status Note Provider Nam e and Address Organization Details Recorded Time Influenza, adjuvanted, quadrivalent, PF 1 completed Nayanajuan Avila [facility] 02/26/2024 10:40:33 Influenza, adjuvanted, quadrivalent, PF 2 completed [place] [facility] 02/26/2024 10:40:34 COVID-19, mRNA, LNP-S, PF, 30 mcg/0.3 mL dose 1 completed Nayanajuan Avila [facility] 02/26/2024 10:40:34 COVID-19, mRNA, LNP-S, PF, 30 mcg/0.3 mL dose 2 completed [place] [facility] 02/26/2024 10:40:34 COVID-19, mRNA, LNP-S, PF, 30 mcg/0.3 mL dose 1 completed Nayana Austin [facility] 02/26/2024 10:40:34 COVID-19, mRNA, LNP-S, bivalent, PF, 30 mcg/0.3 mL dose 2 completed [place] [facility] 02/26/2024 10:40:34 zoster live 3 completed Nayanajuan Avila [facility] 02/26/2024 10:40:34 Influenza, high-dose, trivalent, PF 6 completed Nayana Avila [facility] 02/26/2024 10:40:34 Influenza, high-dose, trivalent, PF 7 completed Nayana Avila [facility] 02/26/2024 10:40:34 Influenza, high-dose, trivalent, PF 9 completed Nayana Avila [facility] 02/26/2024 10:40:34 Influenza, split virus, trivalent, preservative 4 completed Nayana Avila [facility] 02/26/2024 10:40:34 Influenza, split virus, trivalent, preservative 5 completed Nayana Avila [facility] 02/26/2024 10:40:34 Influenza, split virus, trivalent, PF 3 completed Nayanajuan Avila [facility] 02/26/2024 10:40:34 Influenza, high-dose, quadrivalent, PF 3 completed Not Available [facility] 01/28/2025 13:52:17 COVID-19, mRNA, LNP-S, PF, 50 mcg/0.5 mL 3 completed Not Available [facility] 01/28/2025 13:52:17 Influenza, high-dose, trivalent, PF 4 completed Not Available [facility] 01/28/2025 13:52:17 COVID-19, mRNA, LNP-S, PF, valeriy-sucrose, 30 mcg/0.3 mL 4 completed Not Available [facility] 01/28/2025 13:52:17 SARS-COV-2 (COVID-19) vaccine, UNSPECIFIED 5 completed Karina Melvin null, [facility] 06/16/2025 11:58:42 influenza, unspecified formulation 5 completed Karina fung, [facility] 06/16/2025 11:59:38 Influenza, split virus, trivalent, preservative 7 completed Nayana fung [facility] 02/26/2024 10:40:34 Influenza, split virus, trivalent, preservative 9 completed Nayana fung [facility] 02/26/2024 10:40:34 Pneumococcal conjugate PCV 13 9 completed Nayana fung [facility] 02/26/2024 10:40:34 Past Encounters Encounter ID Performer Location Encounter Start Date Encounter Closed Date Diagnosis/Indication Diagnosis SNOMED-CT Code Diagnosis ICD10 Code Diagnosis IMO Codes Diagnosis Note [id number] Sly Hagen DO [facility] ([facility]) [address] [place] [phone] 04/30/2023 13:57:35 05/01/2023 18:33:11 Congestive heart failure 52663478 I50.9 Atrial fibrillation 4943 6004 I48.91 Osteoarthr itis of left hip joint 7511749542 19467 M16.12 severe OA in left hip; evaluated by [facility] last year, but insurance not accepted there [id number] Sly Hagen DO [facility] ([facility]) [address] [place] [address] 06/25/2023 15:11:04 06/25/2023 16:21:38 Hypertensive disorder 14898697 I10 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 Will start azithromyc in and prednisone . [id number] Sly Hagen DO [facility] ([facility]) [address] [place] [phone] 11/14/2023 09:54:35 11/14/2023 10:40:56 Acute exacerbation of chronic congestive heart failure 945957416 I50.9 Persistent atrial fibrillation 569356285 I48.19 Essential hypertension 44502588 I10 [id number] JAYLEN STEPHENS [facility] ([facility]) [address] [place] [phone] 02/26/2024 10:39:26 02/26/2024 11:58:10 Acute pansinusitis 9402435 J01.40 Discussed use of antibiotic . Take with food.May use Shayne's nasal inserts and also apply on chest. Push oral fluids. Consider nasal saline rinses [id number] Sly Hagen DO [facility] ([facility]) [address] [place] [phone] 05/14/2024 09:06:53 05/14/2024 10:06:27 Actinic keratosis 565503163 L57.0 right ear [id number] Lida Ortiz MD [facility] ([facility]) [address] [place] [phone] 06/19/2024 15:01:09 06/21/2024 07:19:00 Acute maxillary sinusitis 11424120 J01.00 Likely bacterial sinusitis based on exam and history. discussed supportive care including OTC meds and sinus rinses. we will start abx. Allergic rhinitis 149733 04 J30.9 Allergies is likely contributi ng to the patient's recurrent sinus infections . Will add a antihistam ine to his Flonase. Atrial fibrillation 4943 6004 I48.91 Check his INR next week given the antibiotic use and antibiotic interactio n [id number] Lida Ortiz MD [facility] ([facility]) [address] [place] [phone] 06/24/2024 11:55:55 06/26/2024 09:15:30 Atrial fibrillation 67058672 I48.91 Check his INR next week given the antibiotic use and antibiotic interactio n [id number] Lida Ortiz MD [facility] ([facility]) [address] [place] [phone] 08/08/2024 11:18:34 08/08/2024 12:10:40 Chronic sinusitis 59713417 J32.9 Patient does present today with sinusitis symptoms. Given his persistent issues with this I would recommend that we evaluate this further in addition to treating her infection. Will send referral to ENT and order a CT of his sinuses. Allergic rhinitis 714614 04 J30.9 Continue antihistam ine and Flonase. [id number] Lida Ortiz MD [facility] ([facility]) [address] [place] [phone] 09/01/2024 14:43:11 09/01/2024 15:30:52 Chronic sinusitis 20236165 J32.9 Patient is having recurrent and persistent sinus symptoms. Change up his antibiotic s and continue them until he sees ENT in 2 weeks. Discussed trying sinus rinses. [id number] Lida Ortiz MD [facility] ([facility]) [address] [place] [phone] 01/28/2025 13:51:54 01/30/2025 09:51:43 Congestive heart failure 83659294 I50.9 Continue to follow with cardiology . Patient is to undergo echo. Atrial fibrillation 4943 6004 I48.91 INR has been doing well. Chronic osteoarthritis 03474982 M19.90 Osteoarthr itis of left hip joint 3584407007 35974 M16.12 [id number] Patient does have arthritis of his left hip that is known. The patient is establishe d with orthopedic s and they have been doing the injection after imaging is appropriat e. Recommend they follow-up with orthopedic s for repeat injection. Health Concerns Section Related Observation LastModified by Organization Detai ls LastModified Time None Recorded Concern Status LastModified by Organization Details LastModified Time None Recorded Advance Directives Directive None Recorded Payers Insurance Date Sequence Insurance Name Policy Number Policy Causey Covered Member ID Causey Member ID Guarantor Name 02/02/2025 1 [id number]/A DVANTAGE - PPO) [id number] Oswaldo Green [id number] Oswaldo Green Notes Date Note Type Note Provider Name and Address Organization Details Recorded Time 06/19/2024 text/html Upper Respirator y SymptomsReported by PatientROS as noted in the HPI WALK IN PATIENTPatient came in a couple months ago. the abx he was given didnt clear up his sinus problems . he is having a lot of drainage. right ear sounds like he is in a barrell. drainage down his throat. balance is off. bad mouth odor. Lida Ortiz MD [address] [place] [address], [phone], [facility] 06/20/2024 09:26:05 08/08/2024 text/html Annual WellnessReported by Patient Sinusitis/AllergyRepor krunal by PatientROS as noted in the HPI This is an 84-year-old gentleman comes in today to establish care. The patient is transferring care from Dr. Hagen. The patient is having recurrent sinusitis. Patient presents today with current sinus infection symptoms including headache, facial pressure, and congestion. Patient reports that his other chronic medical issues been stable on current medication. Lida Ortiz MD [address] [place] [address], [phone], [facility] 08/10/2024 15:47:10 09/01/2024 text/html Sinusitis/Allerg yRepor krunal by PatientROS as noted in the HPI This is an 84-year-old gentleman that comes in today for evaluation. The patient states that he is having recurrent sinus symptoms. The patient did state that he had some relief after taking his last course of antibiotics. Patient recently had CT of the sinuses which did show chronic sinusitis left side. Patient does have ENT appointment in approximately 2 weeks. Lida Ortiz MD [address] [place] [address], [phone], [facility] 09/03/2024 11:04:28 01/28/2025 text/html Pt states he has significant left hip pain for couple months now. He has had pain in that hip for a few years now. He has received 3 injections, all have relieved his pain. Pt would like to receive another hip injection today, he states it has been 6 months since his last. 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 He will be having an echo soon. He is not positive that he will pass to have surgery and will be left to only get injections. Lida Ortiz MD [address] [place] [address], [phone], [facility], [facility] 01/29/2025 16:10:20
--- OUTSIDE RECORDS SUMMARY | 2025-08-08 15:47 | XMS_ITS | Encounter Summary ---
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; Unspecified Heart Disease; Pure Hypercholesterolemia; Unspecified Essential Hypertension Social History Tobacco Use Types Packs/Day Years Used Date Smoking Tobacco: Never Assessed Sex and Gender Information Value Date Recorded Sex Assigned at Not on file Legal Sex Male 4:26 AM TICKET BROKER Gender Identity Not on file Sexual Orientation Not on file documented as of this encounter Plan of Treatment Not on file documented as of this encounter Procedures Procedure Name Priority Date/Time Associated Diagnosis Comments POC ACTIVATED CLOTTING TIME Routine 10/14/2007 2:11 PM TICKET BROKER PT AND APTT Stat 10/14/2007 10:22 AM TICKET BROKER CBC WITHOUT DIFFERENTIAL Stat 10/14/2007 10:22 AM TICKET BROKER BASIC METABOLIC PANEL Stat 10/14/2007 10:22 AM TICKET BROKER documented in this encounter Results * (ABNORMAL) POC ACTIVATED CLOTTING TIME (10/14/2007 2:11 PM TICKET BROKER) ACT POC 817(H) 79 - 149 sec [facility] Blood specimen (specimen) 10/14/2007 2:11 PM TICKET BROKER 10/14/2007 3:36 PM TICKET BROKER Sami Donovan MD POINT OF CARE TESTING Final Re sult Performing Organization Address [facility] de Phone Number [facility] [address] [place] [address] * BASIC METABOLIC PANEL (10/14/2007 10:22 AM TICKET BROKER) GLUCOSE 107 70 - 110 mg/dL [facility] CHLORIDE 107 95 - 110 mEq/L [facility] ANION GAP 11 9 - 20 mEq/L [facility] SODIUM 142 136 - 145 mEq/L [facility] BUN 15 9 - 20 mg/dL [facility] CO2 28 22 - 32 mmol/l [facility] POTASSIUM 4.3 3.5 - 5.0 mEq/L [facility] OSMOLALITY, CALCULATED 293 275 - 295 mOsm/Kg [facility] CREATININE 1.1 0.7 - 1.5 mg/dL [facility] CALCIUM 10.0 8.4 - 10.5 mg/dL [facility] Blood specimen (specimen) 10/14/2007 10:22 AM TICKET BROKER 10/14/2007 10:22 AM TICKET BROKER Sami Donovan MD CHEMISTRY ORDERABLES Final Res ult Performing Organization Address [facility] de Phone Number [facility] [address] [place] [address] * PT AND APTT (10/14/2007 10:22 AM TICKET BROKER) PROTIME 14.8 12.8 - 15.8 Secs [facility] Comment:As of 2007 not e change in normal range. PTT 28.0 21.6 - 35.6 Secs [facility] Comment: Therapeutic Range: Hi-level PE/DVT heparin protocol 80.1 -95.0 sec Lo-level PE/DVT heparin protocol 67.1 - 80.0 sec Cardiac Heparin Protocol 67.1 - 85.0 sec Neuro Heparin Protocol 67.1 - 80.0 sec As of 07/26/2006 note change in APTT Normal Range. INR 1.0 [facility] Comment: Expected Values for INR: DVT/PE Goal INR 2.5; range 2.0 - 3.0 Valve Replacement Tissue Goal INR 2.5; range 2.0 - 3.0 Mechanical Goal INR 3.0; range 2.5 - 3.5 POST-IL Goal INR 2.5; range 2.0 - 3.0 or Goal 3.0; range 2.5 - 3.5 Atrial Fibrillation Goal INR 2.5; range 2.0 - 3.0 Ischemic Stroke Goal INR 2.5; range 2.0 - 3.0 For additional information see Guidelines for Anticoagulation available from the pharmacy [facility]. [phone] Blood specimen (specimen) 10/14/2007 10:22 AM TICKET BROKER 10/14/2007 10:22 AM TICKET BROKER Sami Donovan MD HEMATOLOGY ORDERABLES Edited Performing Organization Address City/State/[facility] Co de Phone Number [facility] [address] [place] [address] * (ABNORMAL) CBC WITHOUT DIFFERENTIAL (10/14/2007 10:22 AM TICKET BROKER) MONOCYTES 7.9 2.0 - 10.0 % [facility] RDW 14.9(H) 11.0 - 14.5 % [facility] MONOCYTE ABSOLUTE 0.6 0.1 - 0.6 K/ul [facility] WBC 7.0 4.8 - 10.8 K/ul [facility] NEUTROPHILS 67.0 42.2 - 75.2 % [facility] MCH 29.2 27.0 - 34.0 pg [facility] NEUTROPHIL ABSOLUTE 4.7 2.0 - 8.0 K/ul [facility] HEMATOCRIT 47.1 41.0 - 53.0 % [facility] PLATELETS 109(L) 140 - 440 K/ul [facility] EOSINOPHIL ABSOLUTE 0.1 0.0 - 0.7 K/ul [facility] EOSINOPHILS 1.3 0.0 - 7.0 % [facility] RBC 5.41 4.60 - 6.20 Mil/ul [facility] MCHC 33.5 30.0 - 35.0 g/dL [facility] LYMPHOCYTE ABSOLUTE 1.7 1.2 - 4.0 K/ul [facility] LYMPHOCYTES 23.7(L) 24.0 - 44.0 % [facility] MCV 87.1 84.0 - 103.0 Fl [facility] BASOPHILS 0.1 0.0 - 1.0 % [facility] MPV 10.5 8.9 - 12.8 Fl [facility] BASOPHILS ABSOLUTE 0.0 0.0 - 0.2 K/ul [facility] HEMOGLOBIN 15.8 14.0 - 18.0 g/dL [facility] Blood specimen (specimen) 10/14/2007 10:22 AM TICKET BROKER 10/14/2007 10:22 AM TICKET BROKER us Sami Donovan MD HEMATOLOGY ORDERABLES Final Re sult [facility] [address] [place] [address] documented in this encounter Visit Diagnoses Diagnosis Coronary atherosclerosis of [place] coronary artery Aneurysm of heart (wall) Other specified forms of chronic ischemic heart disease Other and unspecified angina pectoris 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
--- NOTE | 2025-08-08 16:02 | XRR_ITS ---
PROCEDURE INFORMATION: Exam: XR Chest Exam date and time: 08/08/2025 4:26 PM Age: 85 years old Clinical indication: Shortness of breath; Prior surgery; Surgery date: 6+ months; Surgery type: Cabg, ptca; Additional info: Short of breath TECHNIQUE: Imaging protocol: Radiologic exam of the chest. Views: 1 view. COMPARISON: CR XR chest 1V portable [id number] 08/04/2025 11:19 AM FINDINGS: Lungs: Unchanged patchy airspace opacities in the right lung and possibly left lung base are again seen. Pleural spaces: Unremarkable. No definite pleural effusion. No pneumothorax. Heart/Mediastinum: There is stable cardiomegaly. Bones/joints: Unremarkable. XR/XR chest 1V portable [id number] IMPRESSION: No significant change.
[2025-08-08 16:14] LABS: Hematocrit 41.3 % (37-53); Hemoglobin 13.00 g/dL (11.27-16.99); Mean Corpuscular HGB Conc 31.5 g/dL (30-55); Mean Corpuscular Hemoglobin 27.4 pg (27-33); Mean Corpuscular Volume 87.1 fl (82-101); Nucleated Red Blood Cells % 0.2 %; Platelet Count 178 10^3/cmm (157-399); Red Blood Count 4.74 10^6/uL (3.85-5.65); White Blood Count 12.12 10^3/uL (3.29-11.43)
--- NOTE | 2025-08-08 16:19 | ECG_ITS ---
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
--- NOTE | 2025-08-08 16:23 | ED_ITS ---
HPI - GI Bleed 2 General: Chief complaint: GI Bleed Stated complaint: Blood in stool Feet and Legs Swelling Time Seen by Provider: 08/08/25 16:01 History of Present Illness: Patient is a 85-year-old gentleman presents to the emergency room due to bright red blood per rectum. This started today. He is not having lightheaded, or dizziness worse than usual. He has chronic issues with this and is on midodrine due to chronic hypotension. He does note some shortness of breath, however he chronically has shortness of breath, potentially worse in normal, however patient has difficult time telling. He is chronically on Eliquis due to his A- fib, that he was recently placed on amiodarone for. He is continuing on his digoxin. He has not had any chest pain, or palpitations. He is chronically on clopidogrel for history of CAD. It has been a few years since he had MARYSOL, and CABG. No nausea, no vomiting, no epigastric discomfort Associated symptoms: Denies abdominal pain, chills, fever(s), headache(s), malaise, nausea, rash or vomiting Related Data Home Medications ?Medication ?Instructions ?Recorded ?Confirmed atorvastatin 80 mg tablet 40 mg PO DAILY 11/04/1907/20 fluticasone propionate 50 2 spray intranasal DAILY PRN 10/24/23 07/31/25 mcg/actuation nasal allergies spray,suspension cetirizine 10 mg tablet 10 mg PO DAILY 07/31/2507/20 hydrocodone 5 mg-acetaminophen 325 1 - 2 tab PO QID WI N Pain 07/31/25 07/31/25 mg tablet Previous Rx's ?Medication ?Instructions ?Recorded ezetimibe 10 mg tablet 10 mg PO DAILY #90 tabs 11/19 10/14 potassium chloride 20 mEq See Rx Instructions .Route 0 03/02/25 tablet,extended release .COMPLEX #90 tabs clopidogrel 75 mg tablet 75 mg PO DAILY #90 tabs 01/11 apixaban 2.5 mg tablet (Eliquis) 2.5 mg PO BID #90 tab s 08/05/25 amiodarone 200 mg tablet 200 mg PO DAILY #90 tabs digoxin 125 mcg (0.125 mg) tablet 125 mcg PO DAILY #90 tabs 08/06/25 furosemide 40 mg tablet 20 mg (1/2 x 40 mg) PO BID # 180 08/06/25 tabs midodrine 5 mg tablet 5 mg PO TID #90 tabs 5 hydrocortisone-pramoxine 1 %-1 % 1 applic WI BID #30 g himanshu 08/08/25 rectal cream Allergies Allergy/AdvReac Type Severity Reaction Status Date / Time empagliflozin (From Allergy ADR-Gastrointestinal Verified 07/31/25 10:37 Jardiance) Upset carvedilol AdvReac Intermediate fatigue Verified 07/31/25 10:37 and hypotension Review of Systems 2 Const: Denies: fever(s), chills, body aches or malaise ENMT: Denies: throat pain Card: Reports: edema (Chronic without change); Denies: chest pain, pre-syncope or dyspnea on exertion Resp: Reports: dyspnea and productive cough; Denies: change in phlegm color or hemoptysis GI: Reports: hematochezia (Bright red); Denies: abdominal pain, nausea, vomiting, diarrhea, constipation or melena : Denies: flank pain, difficulty urinating, urinary frequency or hematuria Musc: Denies: neck pain, back pain, joint swelling or joint redness Skin/Breast: Denies: rash or new lesions Neuro: Denies: headache(s) or confusion Psych: Denies: anxiety or depression PFSH ED 2 PFSH: Medical History (Updated 08/08/25 @ 23:40 by MELONIE Pang) Degenerative joint disease of left hip Warfarin anticoagulation Left ventricular ejection fraction less than 20% 10/24/2023: LVEF 15 to 20% History of nonmelanoma skin cancer Cardiomyopathy ASHD (arteriosclerotic heart disease) Hyperlipidemia Hypertension Otalgia Atrial fibrillation Surgical History (Updated 08/02/25 @ 15:51 by Pietro Ward MD) History of PTCA Hx of CABG Family History Father CAD (coronary artery disease) Lung disease Brother CAD (coronary artery disease) Cancer Denies family history of Diabetes Clotting disorder Dementia Chronic kidney disease (CKD) Suicide Anesthesia complication Bleeding disorder Stroke Social History Smoking and tobacco/nicotine status: never used tobacco/nicotine Alcohol intake: never Substance/Drug Use: never Physical Exam 2 Const: COMMON NORMALS: no acute distress, healthy appearing and alert HENMT: COMMON NORMALS: normocephalic and atraumatic HEAD & SCALP: n ormocephalic and atraumatic Lymph: LYMPHATIC: no lymphadenopathy noted Chest: COMMONS NORMALS: normal inspection of the chest and normal palpation of entire chest wall Resp: COMMON NORMALS: normal respiratory effort and No retractions Cardio: COMMON NORMALS: Peripheral pulses 2+ throughout PERIPHERAL PULSES: Peripheral pulses 2+ throughout GI: COMMON NORMALS: Normal to inspection, nondistended, normoactive bowel sounds present, Soft to palpation, non-tender and No hepatosplenomegaly present PALPATION: Yes Soft to palpation and Yes No hepatosplenomegaly present : COMMON NORMALS: Yes no CVA tenderness BLADDER/KIDNEY EXAM: Yes no CVA tenderness Back/Pelvis: COMMON NORMALS: no CVA tenderness and thoracic and lumbar spine normal to inspection Extremity: COMMON NORMALS: normal to inspection, full ROM and capillary refill normal Neuro: SENSORIUM/ORIENTATION: Yes alert Psych: COMMON NORMALS: mental status grossly normal, Normal thought process present and cooperative THOUGHT PROCESS: Normal thought process present Course 2 Reevaluation(s): Reevaluation #1: No further issues when he was at the hospital Reevaluation #2: 2044: Called by patient's noting he was having more bleeding in the stool. They did not pickling solution maker his hemorrhoidal medicine. He is not having any lightheadedness, or dizziness. advised Vital Signs: Vital signs: Vital Signs Temperature 97.8 F 08/08/25 15:46 Pulse Rate 92 08/08/25 17:46 Respiratory Rate 22 H 08/08/25 15:46 Blood Pressure 116/65 08/08/25 17:46 Pulse Oximetry 96 08/08/25 17:46 Oxygen Delivery Me thod Nasal Cannula 08/08/25 15:46 Oxygen Flow Rate 3 08/08/25 15:46 MDM - GI Bleed Medical Decision Making Patient is a 5-year-old gentleman that presents to the emergency room due to bright red blood per rectum. His blood counts are fine and stable with 13, with the last 1 of 11.9. Interestingly, he did have some association of hyperkalemia, and was given Kayexalate. I have also educated him personally on products that are high in potassium, and he believes the culprit is milk. He will decrease his milk intake, and discussed with his primary on Sunday to repeat his labs. He is stable at time of discharge. After discharge, his called me, they did not pickling solution maker their hemorrhoidal medications. I advised her to go and get [id number] medication since it was 8:45 PM and the pharmacy is now closed. Patient's states understanding. Of note, patient did not have any other symptoms of lightheadedness, or dizziness. I advised them to come back to the ER if this occurs. Medical Records I reviewed the patient's medical records. Lab Data I reviewed the patient's lab results. 08/08/25 16:08 08/08/25 16:08 Radiology Impressions Chest X-Ray 08/08/25 16:02 IMPRESSION: No significant change. Laboratory Results WBC 12.12 10^3/uL (3.29-11.43) H 08/08/25 16:08 RBC 4.74 10^6/uL (3.85-5.65) 08/08/25 16:08 Hgb 13.00 g/dL (11.27-16.99) 08/08/25 16:08 Hct 41.3 % (37-53) 08/08/25 16:08 MCV 87.1 fl (82-101) 08/08/25 16:08 MCH 27.4 pg (27-33) 08/08/25 16:08 MCHC 31.5 g/dL (30-55) 08/08/25 16:08 RDW 19.3 % (12.1-15.1) H 08/08/25 16:08 Plt Count 178 10^3/cmm (157-399) 08/08/25 16:08 MPV 10.4 fL (7.4-10.4) 08/08/25 16:08 Neut % (Auto) 82.4 % 08/08/25 16:08 Lymph % (Auto) 8.3 % 08/08/25 16:08 Desha % (Auto) 6.4 % 08/08/25 16:08 Eos % (Auto) 2.4 % 08/08/25 16:08 Baso % (Auto) 0.2 % 08/08/25 16:08 Neut # (Auto) 9.98 10^3/uL (1.8-7.7) H 08/08/25 16:08 Lymph # (Auto) 1.0 10^3/uL (0.8-4.8) 08/08/25 16:08 Desha # (Auto) 0.8 10^3/uL (0.2-0.9) 08/08/25 16:08 Eos # (Auto) 0.3 10^3/uL (0.0-0.8) 08/08/25 16:08 Baso # (Auto) 0.0 10^3/uL (0.0-0.1) 08/08/25 16:08 Nucleated RBC % (auto) 0.2 % 08/08/25 16:08 Nucleated RBCs # 0.0 /100WBC 08/08/25 16:08 Sodium 137 mmol/L (136-145) 08/08/25 16:08 Potassium 5.8 mmol/L (3.5-5.1) H 08/08/25 16:08 Chloride 103 mmol/L (98-107) 08/08/25 16:08 Carbon Dioxide 20 mmol/L (22-29) L 08/08/25 16:08 Anion Gap 19.8 (5-19) H 08/08/25 16:08 BUN 61 mg/dL (8-23) H 08/08/25 16:08 Creatinine 1.2 mg/dL (0.7-1.2) 08/08/25 16:08 GFR Calculation Not Reportable 08/08/25 16:08 Glucose 135 mg/dL (65-115) H 08/08/25 16:08 Calculated Osmolality 303 mOsm/kg (285-295) H 08/08/25 16:08 Lactic Acid 2.5 mmol/L (0.5-2.2) H 08/08/25 16:08 Calcium 8.4 mg/dL (8.5-10.5) L 08/08/25 16:08 Total Bilirubin 1.6 mg/dL (0.15-1.2) H 08/08/25 16:08 AST 60 U/L (0-40) H 08/08/25 16:08 ALT 145 U/L (0-41) H 08/08/25 16:08 Alkaline Phosphatase 180 U/L (40-130) H 08/08/25 16:08 Troponin T Baseline 52 ng/L (0-15) H 08/08/25 16:08 Troponin T 60 Minute 54.03 ng/L (0-15) H 08/08/25 17:18 Delta Troponin T 2.03 ABS# (0-10) 08/08/25 17:18 NT-Pro-B Natriuret Pep 78396 pg/mL (0-450) H 08/08/25 16:08 Total Protein 6.8 g/dL (6.6-8.7) 08/08/25 16:08 Albumin 3.5 g/dL (3.5-5.2) 08/08/25 16:08 Globulin 3.3 g/dL (1.3-4.6) 08/08/25 16:08 Prolactin 18.02 ng/mL (4.0-15.2) H 08/08/25 16:08 Digoxin 1.0 ng/mL (0.6-1.2) 08/08/25 16:08 Influenza A (PCR) Negative (Negative) 08/08/25 16:08 Influenza Type B (PCR) Negative (Negative) 08/08/25 16:08 RSV (PCR) Negative (Negative) 08/08/25 16:08 SARS-CoV-2 (PCR) Negative (Negative) 08/08/25 16:08 All radiology interpretation(s) finalized by discharge Discharge Plan Discharge Patient Disposition: Home Clinical Impression: BRBPR (bright red blood per rectum), Hemorrhoids, Acute hyperkalemia Condition: Stable Prescriptions: New hydrocortisone-pramoxine 1-1 % cream 1 applic WI BID Qty: 30 0RF No Action atorvastatin 80 mg tablet 40 mg PO DAILY ezetimibe 10 mg tablet 10 mg PO DAILY Qty: 90 3RF potassium chloride 20 mEq tablet extended release See Rx Instructions .ROUTE .COMPLEX Qty: 90 3RF Dose Instruction: TAKE 1 TABLET BY MOUTH ONCE DAILY TAKE WITH LASIX Rx Instructions: TAKE 1 TABLET BY MOUTH ONCE DAILY TAKE WITH LASIX clopidogrel 75 mg tablet 75 mg PO DAILY Qty: 90 3RF hydrocodone-acetaminophen 5-325 mg tablet 1 - 2 tab PO QID PRN (Reason: Pain) cetirizine 10 mg tablet 10 mg PO DAILY Eliquis 2.5 mg tablet 2.5 mg PO BID Qty: 90 0RF furosemide 40 mg tablet 20 mg PO BID Qty: 180 1RF midodrine 5 mg tablet 5 mg PO TID Qty: 90 0RF Rx Instructions: do not give last dose of day after 6PM or within 4 hrs of bedtime digoxin 125 mcg (0.125 mg) tablet 125 mcg PO DAILY Qty: 90 0RF amiodarone 200 mg tablet 200 mg PO DAILY Qty: 90 0RF fluticasone propionate 50 mcg/actuation [place],Suspension 2 spray INTRANASAL DAILY PRN (Reason: allergies) Rx Instructions: administer into each nostril Discharge Orders: Discharge ED (Routine); Ordered 08/08/25 Ordered By: Alma Munoz Referrals: Nathaniel Ortiz MD [Primary Care Provider, Family Practice] Discharge Diet: Full LIquid Discharge Activity: Resume usual activity Patient Instructions: Hemorrhoids (ED), Melena (ED), Patient Portal & Emre Instructions Activity Restrictions/Additional Instructions: - Return to the ED with worsening bleeding - You received medication to lower your potassium that will also make you use the bathroom?make sure you repeat your potassium with your primary care physician before [place] this week. Preferably on Sunday. - Return to ED if you have worsening bleeding. - At the pharmacy: Hemorrhoid cream. If this is not acceptable with your insurance, or is too expensive, please obtain [id number] Thank you for choosing [facility] for your healthcare needs today. You have been screened and evaluated and felt safe for discharge. Health conditions do change or evolve sometimes and as such it is important that you follow up with your Primary Doctor to be re checked, 3-5 days is a general good time frame for follow up. You are always welcome to return to the ED for re assessment if your symptoms are worsening or you have new concerns Print Language: Slovenian Coding Level of Care Code ED [employer] for [employer]
[2025-08-08 16:38] LABS: Lactic Sepsis W/Reflex 2.5 mmol/L (0.5-2.2)
[2025-08-08 16:39] LABS: Troponin(5th) Baseline 52 ng/L (0-15)
[2025-08-08 16:41] LABS: Reflex Lactate Order REFLEX LACTIC ORDERD
[2025-08-08 16:47] LABS: Alanine Aminotransferase 145 U/L (0-41); Albumin Level 3.5 g/dL (3.5-5.2); Alkaline Phosphatase 180 U/L (40-130); Aspartate Amino Transferase 60 U/L (0-40); Blood Urea Nitrogen 61 mg/dL (8-23); Calcium 8.4 mg/dL (8.5-10.5); Carbon Dioxide 20 mmol/L (22-29); Chloride 103 mmol/L (98-107); Globulin 3.3 g/dL (1.3-4.6); Glucose 135 mg/dL (65-115); NT Pro B Type Natriuretic Pept 30686 pg/mL (0-450); Osmolality Calculated 303 mOsm/kg (285-295); Sodium 137 mmol/L (136-145); Total Protein 6.8 g/dL (6.6-8.7)
[2025-08-08 16:48] LABS: Anion Gap 19.8 (5-19); Potassium 5.8 mmol/L (3.5-5.1)
[2025-08-08 16:53] LABS: Respiratory Syncytial Virus Ce NEGATIVE (Negative); SARS-CoV-2 PCR NEGATIVE (Negative)
--- NOTE | 2025-08-08 17:12 | ECG_ITS ---
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
[2025-08-08 17:20] LABS: Digoxin 1.0 ng/mL (0.6-1.2)
[2025-08-08 17:30] VITALS: BP 90/55; PULSE 84; O2SAT 100
[2025-08-08 17:46] VITALS: BP 116/65; PULSE 92; O2SAT 96
== END 2025-08-08 17:47 | disposition home or self-care (01) ==
PROVIDERS: Emergency Provider Physician Assistant; PCP Family Medicine
DX: K62.5 Hemorrhage of anus and rectum (principal); K64.9 Unspecified hemorrhoids; E87.5 Hyperkalemia; Z79.02 Long term (current) use of antithrombotics/antiplatelets; Z79.01 Long term (current) use of anticoagulants; Z11.52 Encounter for screening for COVID-19; E78.5 Hyperlipidemia, unspecified; I10 Essential (primary) hypertension; Z95.1 Presence of aortocoronary bypass graft
CPT/HCPCS: 36415; 71045; 80053; 80162; 83605; 83880; 84146; 84484; 85025; 87040; 87637; 93005; 99285; J9999